=== PATIENT | female | born 1985 | race Caucasian/White ===

== ENCOUNTER 2016-04-04 19:52 | Inpatient (IN) | payer BC ==
[~2016-04-04] VITALS: Ht 165.1 cm; Wt 56.9 kg
[~2016-04-04 19:52] MED LIST: ADVINUNK; BCPILLS PO; UNABLE
[2016-04-04] MEDS ORDERED: PEMB1INJ INJ (20:53)
[2016-04-04] MEDS ORDERED: [UNRECOGNIZED DRUG - REMARK] PO (20:57)
[2016-04-04] MEDS ORDERED: SODIUM CHLORIDE 0.9% 1000ML 1,000 ML IV STA ×2 (21:17)
[2016-04-04 21:33] LABS: BASO % 0.3 %; BASO ABS # 0.02 K/uL (0-0.2); COMPLETE YES; EOS % 1.8 %; HEMATOCRIT 40.9 % (37-47); IG% 0.2 %; LYMPH % 18.6 %; LYMPH ABS # 1.22 K/uL (1.2-3.4); MEAN CELL VOLUME 85.2 fL (80-100); MEAN CORPUSCULAR HEMOGLOBIN 28.8 pg (25-34); MEAN CORPUSCULAR HGB CONC 33.7 g/dl (32-36); MEAN PLATELET VOLUME 11.4 fL (7.4-10.4); MONO % 4.6 %; NEUT % 74.5 %; PLATELET COUNT 289 K/uL (130-400); WHITE BLOOD COUNT 6.56 K/uL (4.8-10.8)
[2016-04-04 21:39] LABS: BUN/CREATININE RATIO 12.9 (10-20); CALCIUM 9.3 mg/dl (8.5-10.1); CREATININE 1.1 mg/dl (0.60-1.20); MAGNESIUM 2.1 mg/dl (1.8-2.4); POTASSIUM 3.8 mmol/L (3.5-5.1)
[2016-04-04 21:44] LABS: INR 0.9 (0.9-1.1); PARTIAL THROMBOPLASTIN RATIO 0.9; PROTHROMBIN TIME (PATIENT) 9.5 SECONDS (9.0-12.0)
[2016-04-04 21:49] LABS: ALB/GLOB RATIO 0.9 (0.9-2); PHOSPHORUS 3.6 mg/dl (2.5-4.9); THYROID STIMULATING HORMONE 7.41 uIu/ml (0.300-4.500)
[2016-04-04] MEDS ORDERED: GADAVIST IV PRN (23:00)
[2016-04-04] MEDS ORDERED: DEXAMETHASONE SOD INJ 10 MG/ML VIAL IV ONE (23:45)
[2016-04-04] MEDS ORDERED: LEVETIRACETAM IV 1,000 MG in DEXTROSE 5% 100ML 100 ML IV ONE (23:45)
[2016-04-05] MEDS ORDERED: LEVAQUIN 750MG / 150ML D5W IV ONE (00:45)
[2016-04-05] MEDS ORDERED: ONDANSETRON INJ 2 MG/ML 2 ML VIAL IV PRN (01:45)
[2016-04-05] MEDS ORDERED: ACETAMINOPHEN 325 MG TAB PO PRN (01:45)
[2016-04-05] MEDS ORDERED: MAGNESIUM HYDROXIDE SUSP 30 ML UDC PO PRN (01:45)
[2016-04-05] MEDS ORDERED: ALUMINUM/MAGNESIUM/SIMETH (MAALOX MAX) 30 ML UDC PO PRN (01:45)
[2016-04-05] MEDS ORDERED: ZOLPIDEM TARTRATE 5 MG TAB PO PRN (01:45)
[2016-04-05] MEDS ORDERED: ALBUTEROL HFA 8 GM INHALER INH PRN (02:00)
--- NOTE | 2016-04-05 02:13 | EMERGENCY ROOM VISIT NOTE ---
History Report prepared by [place]: Roshan Weaver Under the Supervision of: Dr. Shahbaz Padron M.D. First contact with patient: 21:03 Chief Complaint: SEIZURE Stated Complaint: SEIZURE Nursing Triage Summary: Seizure for 10 min in car after leaving the mall. Pt is being treated for skin CA. Recent med change to Keytruda. 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 The patient was with her friend leaving the mall when the seizure occurred. Per her friend, she began to get very disoriented. She was having difficultly getting her words and thoughts out. A couple minutes later, she had a confused look on her face, and her head tossed to the right. Her arm also contracted. This lasted about 2 minutes. After this, the patient was slipping in and out of this state. After about 10 minutes she was back to normal. Per the patient, this has never happened before. The patient has a past medical history of skin cancer that has metastasized into her Lymphatic system and to her liver and bone. She is currently on Keytruda to treat her condition. She just had her third treatment and states that she is doing well. Today, the patient states that she was feeling "weird." She was having "out of body type things." She was also having headaches. Currently, she feels cloudy. She does not have a family history of seizures. Patient denies LOC , fevers, chills, diaphoresis, visual changes, neck pain, chest pain, breathing difficulties, nausea, vomiting, abdominal pain, back pain, melena, hematochezia , urinary symptoms, numbness, weakness, lymphadenopathy, rash, or other complaints. 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 A total of ten systems were reviewed and were otherwise negative. 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 (6) Seizure Surgical Problems: (1) History of radical neck surgery Family History Cancer Social History Smoking Status: Never Smoker Smokeless Tobacco Use: No Drug Use: none Marital Status: single Occupation Status: employed Current/Historical Medications Scheduled Control Pills ( Control Pills), 1 TAB PO DAILY Pembrolizumab (Keytruda), Unknown Dose INJ [id number] [Drink Well], 3 CAP PO DAILY Allergies Coded Allergies: Penicillins (Unverified Allergy, Unknown, unknown, 12/18/09) Physical Exam Vital Signs Date Time Temp Pulse Resp B/P Pulse Ox O2 Delivery O2 Flow Rate FiO2 04/04/16 21:59 70 18 98 04/04/16 21:58 128/82 04/04/16 21:47 74 17 98 04/04/16 21:42 69 16 99 04/04/16 21:32 68 16 100 04/04/16 21:28 134/69 04/04/16 21:22 74 17 100 04/04/16 21:17 73 22 100 04/04/16 21:12 75 20 97 04/04/16 21:07 73 15 98 04/04/16 21:02 74 17 100 04/04/16 20:58 126/83 04/04/16 20:57 68 19 100 04/04/16 20:52 70 17 100 04/04/16 20:47 70 21 100 04/04/16 20:42 76 18 100 04/04/16 20:28 130/87 04/04/16 20:27 71 15 100 04/04/16 20:15 100 Room Air 04/04/16 20:14 67 04/04/16 20:01 100/88 04/04/16 19:55 36.9 155/99 Room Air Physical Exam GENERAL: Awake, alert, well appearing, no distress HENT: Normocephalic, atraumatic. TM's normal. Oropharynx unremarkable. EYES: PERRL. EOMI. Normal conjunctiva. Sclera non-icteric. NECK: Supple. No nuchal rigidity. FROM. No JVD or bruit. RESPIRATORY: CTA CARDIAC: RRR. No murmur. ABDOMEN: Soft, non distended. No tenderness to palpation. No rebound or guarding. No masses. RECTAL: Deferred. MUSCULOSKELETAL: Unremarkable. No edema. No discoloration. Gross motor strength symmetric. NEURO: Cranial nerves 2-12 grossly intact. Normal sensorium. No sensory or motor deficits noted. Speech normal. No pronator drift. SKIN: No rash or jaundice noted. LYMPH: No adenopathy. Medical Decision & Procedures ER Provider Diagnostic Interpretation: Radiology results are stated below per my review and radiologist interpretation: MRI HEAD: Compared to 2015 MRI obtained from [employer] Interactive system: There was no intraparenchymal masses or enhancement to suggest metastatic disease. Metastasis suspected throughout, largest lesion at the right frontoparietal region measuring approximately 3.5 cm. No priors available to document stability. No midline shift or hydrocephalus. Air-fluid levels involving the maxillary sinuses. Background of mucosal thickening. Correlate for acute on chronic sinusitis. Radiologist: Med Casarez M.D. Laboratory Results 04/04/16 20:15 Red Blood Count 4.80, Mean Corpuscular Volume 85.2, Mean Corpuscular Hemoglobin 28.8, Mean Corpuscular Hemoglobin Concent 33.7, Mean Platelet Volume 11.4, Neutrophils (%) (Auto) 74.5, Lymphocytes (%) (Auto) 18.6, Monocytes (%) (Auto) 4.6, Eosinophils (%) (Auto) 1.8, Basophils (%) (Auto) 0.3, Neutrophils # (Auto) 4.89, Lymphocytes # (Auto) 1.22, Monocytes # (Auto) 0.30, Eosinophils # (Auto) 0.12, Basophils # (Auto) 0.02 04/04/16 20:15 Test 04/04/16 20:15 04/04/16 21:03 White Blood Count 6.56 K/uL (4.8-10.8) Red Blood Count 4.80 M/uL (4.2-5.4) Hemoglobin 13.8 g/dL (12.0-16.0) Hematocrit 40.9 % (37-47) Mean Corpuscular Volume 85.2 fL (80-100) Mean Corpuscular Hemoglobin 28.8 pg (25-34) Mean Corpuscular Hemoglobin Concent 33.7 g/dl (32-36) Platelet Count 289 K/uL (130-400) Mean Platelet Volume 11.4 fL (7.4-10.4) Neutrophils (%) (Auto) 74.5 % Lymphocytes (%) (Auto) 18.6 % Monocytes (%) (Auto) 4.6 % Eosinophils (%) (Auto) 1.8 % Basophils (%) (Auto) 0.3 % Neutrophils # (Auto) 4.89 K/uL (1.4-6.5) Lymphocytes # (Auto) 1.22 K/uL (1.2-3.4) Monocytes # (Auto) 0.30 K/uL (0.11-0.59) Eosinophils # (Auto) 0.12 K/uL (0-0.5) Basophils # (Auto) 0.02 K/uL (0-0.2) RDW Standard Deviation 48.1 fL (36.4-46.3) RDW Coefficient of Variation 15.2 % (11.5-14.5) Immature Granulocyte % (Auto) 0.2 % Immature Granulocyte # (Auto) 0.01 K/uL (0.00-0.02) Prothrombin Time 9.5 SECONDS (9.0-12.0) Prothromb Time International Ratio 0.9 (0.9-1.1) Activated Partial Thromboplast Time 23.3 SECONDS (21.0-31.0) Partial Thromboplastin Ratio 0.9 Anion Gap 11.0 mmol/L (3-11) Est Creatinine Clear Calc Drug Dose 67.3 ml/min Estimated GFR () 78.0 Estimated GFR (Non- 67.3 BUN/Creatinine Ratio 12.9 (10-20) Calcium Level 9.3 mg/dl (8.5-10.1) Phosphorus Level 3.6 mg/dl (2.5-4.9) Magnesium Level 2.1 mg/dl (1.8-2.4) Total Bilirubin 0.3 mg/dl (0.2-1) Aspartate Amino Transf (AST/SGOT) 32 U/L (15-37) Alanine Aminotransferase (ALT/SGPT) 26 U/L (12-78) Alkaline Phosphatase 73 U/L (45-117) Total Protein 8.0 gm/dl (6.4-8.2) Albumin 3.7 gm/dl (3.4-5.0) Globulin 4.3 gm/dl (2.5-4.0) Albumin/Globulin Ratio 0.9 (0.9-2) Thyroid Stimulating Hormone (TSH) 7.410 uIu/ml (0.300-4.500) Urine Test NEG (NEG) Laboratory results reviewed by me Medications Administered Medications (Trade) Dose Ordered Sig/Marge Route Start Time Stop Time Status Last Admin Dose Admin Sodium Chloride 1,000 ml @ 999 mls/hr Q1H1M STAT IV 04/04/16 21:17 04/04/16 22:17 DC 04/04/16 22:30 999 MLS/HR Levetiracetam/ Dextrose (Keppra Iv/D5 100ml) 110 ml @ 440 mls/hr ONE ONCE IV 04/04/16 23:45 04/04/16 23:59 DC 04/05/16 00:23 440 MLS/HR Dexamethasone Sodium Phosphate (Decadron Inj) 10 mg NOW ONCE IV 04/04/16 23:45 04/04/16 23:47 DC 04/05/16 00:23 10 MG ECG Indication: other (seizure) Rate (beats per minute): 69 Rhythm: normal sinus Findings: Q waves (Anterior and septal), no acute ischemic change, no ectopy, other (Right axis) ED Course 2102: The patient was evaluated in room C12. A complete history and physical exam was performed. 7: Sodium Chloride 1000 ml @ 125 mls/hr IV, Sodium Chloride 1000 ml @ 999 mls /hr IV 2343: [facility] Hospital[facility]. They believe we should give her Decadron and Keppra. 2345: Decadron Inj 10 mg IV, Levetiracetam 1000 mg/Dextrose 110 ml @ 440 mls/hr IV 0045: Levofloxacin 750 mg IV 0100: Upon reexamination, the patient was resting. I discussed the test results and treatment plan with her. The patient will be evaluated by Dr. Estuardo Elder [facility], for further management. Medical Decision Triage Nursing notes reviewed. The patient's presentation and history were concerning for seizure and history of melanoma. Etiologies such as primary seizure, metastatic tumor, migraine, tumor, headache , sinus thrombosis, temporal arteritis, sinusitis, CVA, ICH, SAH, infection, as well as others were entertained. The patient was evaluated. She had a reported postictal period but that had cleared upon my evaluation. She was doing well. She had no significant headache or meningeal findings. She had no focal neurologic findings. Blood work was obtained. The patient was hydrated. Her diagnostic testing with regards to her laboratory results were unremarkable. The patient underwent MR imaging and this was concerning for metastatic disease. Given that she has diastatic melanoma to the liver and bone, this is the most likely cause. The patient was given Decadron and IV Keppra. I did consult with neurology. The patient was informed of the findings. She also has sinus disease present on MRI and has had symptoms on further questioning. She has a history of sinus problems. The patient was given a dose of IV Levaquin given her penicillin allergy. The patient was evaluated in the emergency department by internal medicine after consultation and admitted for further treatment. The chart was completed utilizing [employer] Speech voice recognition software. Grammatical errors, random word insertions, pronoun errors, and incomplete sentences are an occasional consequence of this system due to software limitations, ambient noise, and hardware issues. Any formal questions or concerns about the content, text, or information contained within the body of this dictation should be directly addressed to the physician for clarification. Consults Time Called: 2340 Consulting Physician: Dr. Madelin Bustos Hospitalist Returned Call: [phone] We discussed the patient's case. They think we should give her Decadron and Keppra. Additional Consults: Time Called: 0055 Consulted Physician: Dr. Estuardo WISE Returned Call: [phone] Additional Comments: He will be evaluating the patient for further management. Impression Primary Impression: New onset seizure Additional Impression: Metastatic melanoma Scribe Attestation The scribe's documentation has been prepared under my direction and personally reviewed by me in its entirety. I confirm that the note above accurately reflects all work, treatment, procedures, and medical decision making performed by me. Departure Information Dispostion Being Evaluated By Hospitalist Referrals Vishnu Wick M.D. (PCP) Patient Instructions My [facility] Problem Qualifiers
--- NOTE | 2016-04-05 02:32 | History and Physical ---
History & Physical Date & Time of Service: Apr 05, 2016 at 02:14 Chief Complaint: Seizure Primary Care Physician: Vihsnu Wick M.D. History of Present Illness Source: patient, family This is a pleasant 30-year-old female, with background history of melanoma, who presents this evening to the emergency department with a new onset seizure. She notes that she was doing well up until earlier this evening. She was driving a car with a friend. They were having a conversation, when suddenly she began having difficulty speaking. She states that she knew which words she wanted to use but was having difficulty expressing them. She notes that she was still able to understand speech. Immediately after she lost consciousness. Her friend noted to her afterwards that her eyes rolled into the back of her head, her arms became flexed, and her head or was flexed to the right. She did not have any shaking or convulsive movements. She denies tongue biting. He denies urinary or bowel incontinence. Her seizure lasted approximately 2-3 minutes, after which she gradually returned to her usual level of consciousness within a period of approximately 10 minutes. She notes that this is her first seizure. Currently she notes that she is symptom free. She does not have any aphasia or dysphasia. She denies blurred or double vision. She denies facial weakness. She denies upper or lower extremity unilateral weakness or altered sensation. She denies balance issues at this time though she has not ambulated since her seizure. Her only other complaint at this time is sinus congestion and discharge. Regarding her diagnosis of melanoma, the diagnosis was made 2 years ago. She follows with Dr. Hernandez from [facility], as her oncologist. Currently she is on a treatment regimen with Keytruda, which she gets on every 3 weeks. Her last treatment was approximately 4 days ago. She has had a total of 3 treatments up until this point. On arrival to the emergency department, an MRI scan was done, which showed a new metastatic lesion to her right frontal-temporal area. Prior to her arrival , she was aware of metastatic disease to her liver, did not know that she had metastasis to her brain until the MRI was done. 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 Status: Chronic Surgical Problems: (1) History of radical neck surgery Status: Chronic [place] teeth Excision of Premarin a melanoma lesion of the scalp Family History Cancer Social History Smoking Status: Never Smoker Smokeless Tobacco Use: No Alcohol Use: occasionally Drug Use: none Marital Status: single Housing status: lives with family Occupational Status: employed Multi-Drug Resistant Organisms History of MDRO: No Allergies Coded Allergies: Penicillins (Unverified Allergy, Unknown, unknown, 12/18/09) Home Medications Scheduled Control Pills ( Control Pills), 1 TAB PO DAILY Pembrolizumab (Keytruda), Unknown Dose INJ [id number] [Drink Well], 3 CAP PO DAILY Review of Systems Constitutional: No chills, No fever, No sweats Eyes: No diplopia, No eye pain, No worsening of vision ENT: No hearing loss, No sore throat, No trouble swallowing Respiratory: No cough, No shortness of breath, No wheezing Cardiovascular: No PND, No chest pain, No edema, No orthopnea, No palpitations Abdomen: No constipation, No diarrhea, No nausea, No pain, No vomiting Musculoskeletal: No joint pain, No muscle pain Neurologic: No balance problems, No numbness/tingling, No vertigo, No weakness Hematologic / Lymphatic: No night sweats, No swollen lymph nodes Integumentary: No new/changing skin lesions, No rash Physical Exam Vital Signs Date Time Temp Pulse Resp B/P Pulse Ox O2 Delivery O2 Flow Rate FiO2 04/04/16 21:59 70 18 98 04/04/16 21:58 128/82 04/04/16 21:47 74 17 98 04/04/16 21:42 69 16 99 04/04/16 21:32 68 16 100 04/04/16 21:28 134/69 04/04/16 21:22 74 17 100 04/04/16 21:17 73 22 100 04/04/16 21:12 75 20 97 04/04/16 21:07 73 15 98 04/04/16 21:02 74 17 100 04/04/16 20:58 126/83 04/04/16 20:57 68 19 100 04/04/16 20:52 70 17 100 04/04/16 20:47 70 21 100 04/04/16 20:42 76 18 100 04/04/16 20:28 130/87 04/04/16 20:27 71 15 100 04/04/16 20:15 100 Room Air 04/04/16 20:14 67 04/04/16 20:01 100/88 04/04/16 19:55 36.9 155/99 Room Air General Appearance: WD/WN, no apparent distress Head: normocephalic, atraumatic Eyes: normal inspection, PERRL, EOMI ENT: hearing grossly normal, pharynx normal Neck: supple, no adenopathy, no JVD Respiratory/Chest: chest non-tender, lungs clear, normal breath sounds, no respiratory distress Cardiovascular: regular rate, rhythm, no edema, no gallop, no murmur Abdomen/GI: normal bowel sounds, non tender, soft Back: normal inspection, no CVA tenderness Extremities/Musculoskeletal: normal inspection, no calf tenderness, no pedal edema Neurologic/Psych: alert, normal mood/affect, oriented x 3 CN I - XII Grossly intact 5/5 Strength in the upper extremities bilaterally with intact sensation No pronator drift; normal finger to nose 5/5 Strength in the extremities bilaterally with intact sensation Skin: normal color, warm/dry, no rash Lymphatic: no adenopathy Diagnostics Laboratory Results Results Past 24 Hours Test 04/04/16 20:15 04/04/16 21:03 Range/Units White Blood Count 6.56 4.8-10.8 K/uL Red Blood Count 4.80 4.2-5.4 M/uL Hemoglobin 13.8 12.0-16.0 g/dL Hematocrit 40.9 37-47 % Mean Corpuscular Volume 85.2 80-100 fL Mean Corpuscular Hemoglobin 28.8 25-34 pg Mean Corpuscular Hemoglobin Concent 33.7 32-36 g/dl Platelet Count 289 130-400 K/uL Mean Platelet Volume 11.4 7.4-10.4 fL Neutrophils (%) (Auto) 74.5 % Lymphocytes (%) (Auto) 18.6 % Monocytes (%) (Auto) 4.6 % Eosinophils (%) (Auto) 1.8 % Basophils (%) (Auto) 0.3 % Neutrophils # (Auto) 4.89 1.4-6.5 K/uL Lymphocytes # (Auto) 1.22 1.2-3.4 K/uL Monocytes # (Auto) 0.30 0.11-0.59 K/uL Eosinophils # (Auto) 0.12 0-0.5 K/uL Basophils # (Auto) 0.02 0-0.2 K/uL RDW Standard Deviation 48.1 36.4-46.3 fL RDW Coefficient of Variation 15.2 11.5-14.5 % Immature Granulocyte % (Auto) 0.2 % Immature Granulocyte # (Auto) 0.01 0.00-0.02 K/uL Prothrombin Time 9.5 9.0-12.0 SECONDS Prothromb Time International Ratio 0.9 0.9-1.1 Activated Partial Thromboplast Time 23.3 21.0-31.0 SECONDS Partial Thromboplastin Ratio 0.9 Sodium Level 140 136-145 mmol/L Potassium Level 3.8 3.5-5.1 mmol/L Chloride Level 102 98-107 mmol/L Carbon Dioxide Level 27 21-32 mmol/L Anion Gap 11.0 3-11 mmol/L Blood Urea Nitrogen 14 7-18 mg/dl Creatinine 1.10 0.60-1.20 mg/dl Est Creatinine Clear Calc Drug Dose 67.3 ml/min Estimated GFR () 78.0 Estimated GFR (Non- 67.3 BUN/Creatinine Ratio 12.9 10-20 Random Glucose 130 70-99 mg/dl Calcium Level 9.3 8.5-10.1 mg/dl Phosphorus Level 3.6 2.5-4.9 mg/dl Magnesium Level 2.1 1.8-2.4 mg/dl Total Bilirubin 0.3 0.2-1 mg/dl Aspartate Amino Transf (AST/SGOT) 32 15-37 U/L Alanine Aminotransferase (ALT/SGPT) 26 12-78 U/L Alkaline Phosphatase 73 45-117 U/L Total Protein 8.0 6.4-8.2 gm/dl Albumin 3.7 3.4-5.0 gm/dl Globulin 4.3 2.5-4.0 gm/dl Albumin/Globulin Ratio 0.9 0.9-2 Thyroid Stimulating Hormone (TSH) 7.410 0.300-4.500 uIu/ml Urine Test NEG NEG Diagnostic Radiology MRI report images in EMR; final report is pending From gross inspection, appearance of space-occupying lesion in the right frontotemporal area EKG Normal sinus rhythm Possible Left atrial enlargement Rightward axis RSR' or QR pattern in V1 suggests right ventricular conduction delay Cannot rule out Anteroseptal infarct , age undetermined Abnormal ECG Impression Assessment and Plan Documented By: Luis Enrique Richbrunoveronica 30-year-old female with background of metastatic melanoma presenting with new onset seizure and new metastatic lesion in the brain. Postictally, she does not have any residual neurological deficits, my examination. Our plan for her is as follows: New-onset seizure - Likely secondary to space-occupying lesion; final MRI report is pending - Decadron 10 mg given in the emergency department to reduce vasogenic edema Continue with Decadron 4 mg by mouth 4 times a day - Keppra started in the emergency department; we will continue on with Keppra, which is to be adjusted/changed per neurology recommendations - We'll place the patient on seizure precautions - Neurology consultation - Oncology consultation placed Acute on chronic sinusitis - Start Levaquin Asthma - Notes good control with only when necessary albuterol use - Albuterol 1 puff every 4 hours when necessary DVT prophylaxis - SCDs - MARY ELLEN hose - Heparin 5000 subcutaneous twice a day CODE STATUS - Level I full code Disposition - Med/Surg Resident Physician Supervision Note: I was present with [Name of resident] during the history and exam. I discussed the case with the resident and agree with the findings and plan as documented in the note. Any exceptions or clarifications are listed here: Pt seen/examined - discussed extensively with pt and family arrives following new onset seizure - likely 2/2 new brain met Pt is receiving immune Tx for metastatic melanoma - had received 2 prior immune agents however recent scans revealed new liver lesions She has had 3 total treatments of a new agent and has not had a brain MRI in 2 years so that the seizure does not necessarily constitute treatment failure O/E AAO x 3 S1.2 RRR CTAB NT/ND No defecits P: Placed on Decadron and Keppra pending eval by HO and neuro Imaging consistent with acute sinus infection as well - will treat with Levaquin Above discussed with pt,family and resident Resuscitation Status FULL RESUSCITATION VTE Prophylaxis VTE Risk Assessment Done? Y/N: Yes Risk Level: Moderate Given or contraindicated: Unfractionated heparin SQ
[2016-04-05 04:01] VITALS: BP 111/68; PULSE 53; TEMP 36.7; O2SAT 100; BMI 21.6
--- NOTE | 2016-04-05 07:39 | DIAGNOSTIC IMAGING REPORT ---
MRI OF THE BRAIN COMBO CLINICAL HISTORY: Seizure. History of melanoma. COMPARISON STUDY: No priors. TECHNIQUE: MRI of the brain was performed utilizing various T1 and T2-weighted sequences in the axial, sagittal, and coronal planes. Contrast-enhanced sequences were acquired following the administration of 6 cc of Gadavist. The examination was performed utilizing the seizure protocol. FINDINGS: Brain parenchyma: There is a large T1 hyperintense lesion identified in the right frontal lobe with surrounding edema. This measures 3.1 x 2.8 x 2.2 cm. Hemosiderin deposition is noted. This appears to contain complex material, likely representing hemorrhage. There is effacement of the adjacent cortical sulci. No midline shift is seen. There is no restricted diffusion typical for acute ischemia. There are numerous (greater than 30) additional T1 hyperintense lesions seen throughout the brain parenchyma. The next largest lesions are present in the anterior left temporal pole measuring 7 mm in the left posterior parietal lobe measuring 10 mm. These likely demonstrate postcontrast enhancement; however, this is difficult to assess given the T1 hyperintensity. No extra-axial fluid collection is seen. The cerebellar tonsils are normal in configuration. Ventricles, sulci, and cisterns: Normal in configuration. Pituitary and sella: Unremarkable. Intracranial vasculature: Normal flow voids are maintained at the skull base. Orbits: The bony orbits are grossly intact. Orbital contents are normal in appearance. Sinuses and mastoids: There is subtotal opacification of the maxillary antra and anterior ethmoid sinuses. Mild mucosal thickening is seen within the frontal sinuses. The mastoid air cells are clear. Calvarium: There is heterogeneity within the clivus such that a bone lesion is not excluded. Cervical cord: Partially visualized cervical spinal cord is normal in morphology and signal intensity. IMPRESSION: 1. Findings consistent with diffuse/multifocal intracranial metastatic disease, with greater than 30 lesions identified. These are T1 hyperintense and likely demonstrate postcontrast enhancement. The signal characteristics are consistent with the reported history of melanoma. 2. The largest lesion measures 3.1 cm an is located in the right frontal lobe. There is significant surrounding edema and internal complexity/hemosiderin suggests hemorrhage. 3. There is no midline shift or evidence of acute ischemia. 4. Paranasal sinus disease as above. Electronically signed by: Wesley Eller M.D. 04/05/2016 7:37 AM Dictated Date/Time: 04/05/2016 7:29 AM
[2016-04-05 07:56] VITALS: BP 120/73; PULSE 52; TEMP 36.2; O2SAT 98
[2016-04-05] MEDS ORDERED: [UNRECOGNIZED DRUG - OTHER] PO SCH (08:00)
[2016-04-05] MEDS ORDERED: DEXAMETHASONE 4 MG TAB PO SCH (08:00)
[2016-04-05] MEDS: LEVETIRACETAM 500 MG TAB PO SCH ×2 (08:44→19:59)
[2016-04-05] MEDS ORDERED: HEPARIN SOD 5000 UNIT/0.5 ML CARP SQ SCH (09:00)
[2016-04-05 09:35] LABS: COMPLETE YES; HEMATOCRIT 38.5 % (37-47); IG% 0.3 %; LYMPH % 8.7 %; LYMPH ABS # 0.68 K/uL (1.2-3.4); MEAN CELL VOLUME 84.6 fL (80-100); MEAN CORPUSCULAR HEMOGLOBIN 28.6 pg (25-34); MEAN CORPUSCULAR HGB CONC 33.8 g/dl (32-36); MEAN PLATELET VOLUME 10.9 fL (7.4-10.4); PLATELET COUNT 252 K/uL (130-400); RED BLOOD COUNT 4.55 M/uL (4.2-5.4); WHITE BLOOD COUNT 7.79 K/uL (4.8-10.8)
[2016-04-05 10:04] LABS: BUN/CREATININE RATIO 11.9 (10-20); CREATININE 1.1 mg/dl (0.60-1.20); POTASSIUM 3.9 mmol/L (3.5-5.1)
--- NOTE | 2016-04-05 10:24 | Family Medicine Progress Note ---
Progress Note Date of Service Apr 05, 2016. Subjective Pt evaluation today including: conversation w/ patient, physical exam, chart review, lab review, review of studies, conversation w/ application security consultant (Dr Childers), review of inpatient medication list Voiding: no voiding problems 30-year-old female with unfortunate history of malignant melanoma with metastatic disease to her liver under Dr Hernandez most recently on Keytruda (last treatment 4 weeks previously). Admitted for new onset seizure with recent headaches. MRI in ER show multiple metastases to her brain. She was given 10 mg dexamethasone in the ER and started on Keppra. Since admission she has felt back to her usual self just a bit jittery. No focal neurology. She has had a cold and sinus pressure for the last 10 days. Takes steroid nasal sprays as required. Discussed goals of care and she currently wishes to undergo all possible treatment. She does not wish to speak to palliative care at present. All Other Systems: Reviewed and Negative Medications Current Inpatient Medications Medications (Trade) Dose Ordered Sig/Marge Route Start Time Stop Time Status Last Admin Dose Admin Gadobutrol (Gadavist) 6 mmol UD PRN IV 04/04/16 23:00 04/08/16 22:59 Acetaminophen (Tylenol Tab) 650 mg Q4H PRN PO 04/05/16 01:45 05/05/16 01:44 Al Hydrox/Mg Hydrox/Simethicone (Maalox Max Susp) 15 ml Q4H PRN PO 04/05/16 01:45 05/05/16 01:44 Magnesium Hydroxide (Milk Of Magnesia Susp) 30 ml Q6H PRN PO 04/05/16 01:45 05/05/16 01:44 Zolpidem Tartrate (Ambien Tab) 5 mg HSZ PRN PO 04/05/16 01:45 05/05/16 01:44 Ondansetron HCl (Zofran Inj) 4 mg Q6H PRN IV 04/05/16 01:45 05/05/16 01:44 Dexamethasone (Decadron Tab) 4 mg Q6H PO 04/05/16 08:00 05/05/16 07:59 04/05/16 08:44 4 MG Albuterol (Ventolin Hfa Inhaler) 1 puffs QID PRN INH 04/05/16 02:00 3/17/17 01:59 Levetiracetam (Keppra Tab) 500 mg BID PO 04/05/16 08:00 05/05/16 08:59 04/05/16 08:44 500 MG Levofloxacin (Levaquin Tab) 750 mg DAILY@11 PO 04/05/16 12:00 04/15/16 11:59 Objective Vital Signs Date Time Temp Pulse Resp B/P Pulse Ox O2 Delivery O2 Flow Rate FiO2 04/05/16 07:56 36.2 52 16 120/73 98 Room Air 04/05/16 04:01 36.7 53 16 111/68 100 Room Air 04/05/16 02:21 64 18 122/74 99 Room Air 04/04/16 21:59 70 18 98 04/04/16 21:58 128/82 04/04/16 21:47 74 17 98 04/04/16 21:42 69 16 99 04/04/16 21:32 68 16 100 04/04/16 21:28 134/69 04/04/16 21:22 74 17 100 04/04/16 21:17 73 22 100 04/04/16 21:12 75 20 97 04/04/16 21:07 73 15 98 04/04/16 21:02 74 17 100 04/04/16 20:58 126/83 04/04/16 20:57 68 19 100 04/04/16 20:52 70 17 100 04/04/16 20:47 70 21 100 04/04/16 20:42 76 18 100 04/04/16 20:28 130/87 04/04/16 20:27 71 15 100 04/04/16 20:15 100 Room Air 04/04/16 20:14 67 04/04/16 20:01 100/88 04/04/16 19:55 36.9 155/99 Room Air Physical Exam General Appearance: WD/WN, no apparent distress Eyes: normal inspection, PERRL, EOMI ENT: pharynx normal Neck: supple Respiratory/Chest: chest non-tender, lungs clear, normal breath sounds, no respiratory distress, no accessory muscle use Cardiovascular: regular rate, rhythm, no murmur Abdomen: normal bowel sounds, non tender, soft Extremities: no pedal edema, no calf tenderness, normal capillary refill Neurologic/Psychiatric: no motor/sensory deficits, alert, normal mood/affect ( appears slightly agitated at rest), oriented x 3 Skin: normal color, warm/dry, no rash Laboratory Results 04/05/16 09:22 Red Blood Count 4.55, Mean Corpuscular Volume 84.6, Mean Corpuscular Hemoglobin 28.6, Mean Corpuscular Hemoglobin Concent 33.8, Mean Platelet Volume 10.9, Neutrophils (%) (Auto) 90.0, Lymphocytes (%) (Auto) 8.7, Monocytes (%) (Auto) 1.0, Eosinophils (%) (Auto) 0.0, Basophils (%) (Auto) 0.0, Neutrophils # (Auto) 7.01, Lymphocytes # (Auto) 0.68, Monocytes # (Auto) 0.08, Eosinophils # (Auto) 0.00, Basophils # (Auto) 0.00 04/05/16 09:22 Test 04/04/16 20:15 04/04/16 21:03 04/05/16 09:22 Prothrombin Time 9.5 SECONDS (9.0-12.0) Prothromb Time International Ratio 0.9 (0.9-1.1) Activated Partial Thromboplast Time 23.3 SECONDS (21.0-31.0) Partial Thromboplastin Ratio 0.9 Phosphorus Level 3.6 mg/dl (2.5-4.9) Magnesium Level 2.1 mg/dl (1.8-2.4) Total Bilirubin 0.3 mg/dl (0.2-1) Aspartate Amino Transf (AST/SGOT) 32 U/L (15-37) Alanine Aminotransferase (ALT/SGPT) 26 U/L (12-78) Alkaline Phosphatase 73 U/L (45-117) Total Protein 8.0 gm/dl (6.4-8.2) Albumin 3.7 gm/dl (3.4-5.0) Globulin 4.3 gm/dl (2.5-4.0) Albumin/Globulin Ratio 0.9 (0.9-2) Thyroid Stimulating Hormone (TSH) 7.410 uIu/ml (0.300-4.500) Urine Test NEG (NEG) White Blood Count 7.79 K/uL (4.8-10.8) Red Blood Count 4.55 M/uL (4.2-5.4) Hemoglobin 13.0 g/dL (12.0-16.0) Hematocrit 38.5 % (37-47) Mean Corpuscular Volume 84.6 fL (80-100) Mean Corpuscular Hemoglobin 28.6 pg (25-34) Mean Corpuscular Hemoglobin Concent 33.8 g/dl (32-36) Platelet Count 252 K/uL (130-400) Mean Platelet Volume 10.9 fL (7.4-10.4) Neutrophils (%) (Auto) 90.0 % Lymphocytes (%) (Auto) 8.7 % Monocytes (%) (Auto) 1.0 % Eosinophils (%) (Auto) 0.0 % Basophils (%) (Auto) 0.0 % Neutrophils # (Auto) 7.01 K/uL (1.4-6.5) Lymphocytes # (Auto) 0.68 K/uL (1.2-3.4) Monocytes # (Auto) 0.08 K/uL (0.11-0.59) Eosinophils # (Auto) 0.00 K/uL (0-0.5) Basophils # (Auto) 0.00 K/uL (0-0.2) RDW Standard Deviation 47.1 fL (36.4-46.3) RDW Coefficient of Variation 15.1 % (11.5-14.5) Immature Granulocyte % (Auto) 0.3 % Immature Granulocyte # (Auto) 0.02 K/uL (0.00-0.02) Anion Gap 12.0 mmol/L (3-11) Est Creatinine Clear Calc Drug Dose 67.3 ml/min Estimated GFR () 78.0 Estimated GFR (Non- 67.3 BUN/Creatinine Ratio 11.9 (10-20) Calcium Level 9.0 mg/dl (8.5-10.1) Assessment and Plan 30-year-old female with background of metastatic melanoma presenting with new onset seizure and metastatic spread to her brain. No residual neurological deficits. Malignant melanoma with metastatic disease to her brain causing new onset seizure - Decadron 10 mg, reduce dexamethasone from QID to BID as discussed with Dr Childers - Continue seizure precautions - Consult neurology - keppra switched to PO, follow up as outpatient - Consult oncology - Dr Hernandez seen and radiation oncology consulted - Consult radiation oncology - seen by Dr Childers, will start whole brain radiotherapy tomorrow - Start memantine 20 mg/day for neuroprotective effect as undergoing WBRT. ( https://www.ncbi.nlm.nih.gov/pmc/articles/ACH7538225/). As discussed with Dr Childers. Acute on chronic sinusitis - switch Levaquin to doxycycline - dexamethasone will also help with this as above Asthma - Notes good control with only when necessary albuterol use - Albuterol 1 puff every 4 hours when necessary DVT prophylaxis - SCDs - MARY ELLEN hose - heparin stopped due to possibility of hemorrhage around brain mets - Encourage ambulation CODE STATUS - Level I full code Disposition - Continue in med/surg for 24 hours seizure free and aim home tomorrow after whole brain radiation Resident Physician Supervision Note: I was present with PGY2 Dr. Tarik Mazariegos during the history and exam. I discussed the case with the resident and agree with the findings and plan as documented in the note. Any exceptions or clarifications are listed here: none. Pt w/o any further seizures. Denies headache, confusion, mental fogginess, weakness in any limb, sensory loss any location. Mother, father, significant other at bedside. VSS, no fever gen - restricted affect no facial droop mouth - tongue bite eleazar on left heart - sinus colt, s1, s2 lungs - CTA b/l neuro - strength 5/5 x 4 exts A/P: 1. stage 4 melanoma with extensive mets to brain plan - whole brain xrt x 10 treatments starting 04/06/16 2. 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 abnormal TSH - free T4 preserved; defer on synthroid for now 4. DVT proph - stop heparin due to concern of slight bleeding around large met in brain Katerine LUU MD Documented By: Tarik Luu Resident Tracking Resident Involvement: Resident Care Provided Care Provided: Adult Hospital Medicine
[2016-04-05] MEDS: LEVOFLOXACIN 750 MG TAB PO SCH (11:43)
--- NOTE | 2016-04-05 14:57 | ONCOLOGY CONSULTATION ---
DATE OF CONSULTATION: 04/05/2016 DATE OF CONSULTATION: 04/05/2016. CONSULTATION WAS REQUESTED BY: Dr. Alba. REASON FOR CONSULTATION: Melanoma, new brain met, seizure. HISTORY OF PRESENT ILLNESS: Ms. Love is a 30-year-old woman who was referred to me in oncology consultation in August 2013 after undergoing surgery for removal of melanoma of the scalp with metastasis to a right neck node. I sent her to [facility] in [place] for an opinion regarding adjuvant therapy. They recommended 1 year of interferon therapy, which the patient refused. I then followed her expectantly. In approximately February 2014 she progressed in her right neck and chest wall. Scanning documented liver and bone metastases as well. She was then placed on a clinical trial receiving Yervoy. Unfortunately, her disease rapidly progressed such that in June 2014 I stopped the Yervoy and took her off clinical study. She was then placed on a second clinical trial receiving Tafinlar and Mekinist. She did well on the 2nd clinical study until approximately January 2016 when again scans showed progression. She was taken off clinical study and placed on Keytruda off study. Her last Keytruda infusion was administered on 03/30/2016 and this was her third infusion. She is now admitted at [facility] after having a seizure. MRI scanning of the brain documented a primary lesion in the right frontal lobe with surrounding edema and possible hemorrhage within the metastases. In addition, greater than 30 additional brain metastases were also noted. She was given Decadron 10 mg IV and started on 4 mg of Decadron q. 6 hours. She was also started on Keppra. She has been seizure free since admission. IMPRESSION: Progressive metastatic melanoma, now with extensive brain involvement. The Decadron and Keppra should be continued. I have consulted radiation therapy and have spoken with Dr. Bozena Childers regarding her treatment. Whole brain radiation will be planned. At this time I am in the process of determining what if any additional systemic therapy should be offered. It is obvious that these brain metastases have been present for some time, but only recently became symptomatic. Therefore, I am not sure that her disease has failed Keytruda. I met with her and discussed her problem. I answered her questions. MTDD
[2016-04-05 15:29] VITALS: BP 115/69; PULSE 55; TEMP 36.5; O2SAT 99
--- NOTE | 2016-04-05 16:13 | Neurology Consultation ---
Neurology Consultation Date of Consultation: Apr 05, 2016. Attending Physician: Tarik Luu MD Primary Care Physician: Vishnu Wick M.D. Reason for Consultation: new onset seizure History of Present Illness Source: patient, family Duque is a 30-year-old female, with PMH melanoma, who presents this evening to the emergency department with a new onset seizure. She notes that she was doing well up until earlier this evening. She was driving a car with a friend. They were having a conversation, when suddenly she began having difficulty speaking. She states that she knew which words she wanted to use but was having difficulty expressing them. She states she was very confused after the event. She did not bite her tongue or have incontinence. Her seizure lasted approximately 2-3 minutes, after which she gradually returned to her usual level of consciousness within a period of approximately 10 minutes. she states she did have some headache and strange feeling several weeks prior to the seizure, she has no history of prior seizure. Her cancer diagnosis was 2 years ago she sees Dr. Hernandez from [facility], as her oncologist. Currently she is being treated with Keytruda, which she gets on every 3 weeks. MRI scan was done, which showed a new metastatic lesion to her right frontal- temporal area. denies, CP, SOB, abdominal pain, one sided weakness, numbness tingling, vision changes, N, V. headache Past Medical/Surgical History Medical Problems: (1) Metastatic melanoma Status: Acute (2) New onset seizure Status: Acute Social History Smokeless Tobacco Use: No Alcohol Use: occasionally Drug Use: none Marital Status: single Occupation Status: employed Allergies Coded Allergies: Penicillins (Unverified Allergy, Unknown, unknown, 12/18/09) Current Inpatient Medications Current Inpatient Medications Medications (Trade) Dose Ordered Sig/Marge Route Start Time Stop Time Status Last Admin Dose Admin Gadobutrol (Gadavist) 6 mmol UD PRN IV 04/04/16 23:00 04/08/16 22:59 Acetaminophen (Tylenol Tab) 650 mg Q4H PRN PO 04/05/16 01:45 05/05/16 01:44 Al Hydrox/Mg Hydrox/Simethicone (Maalox Max Susp) 15 ml Q4H PRN PO 04/05/16 01:45 05/05/16 01:44 Magnesium Hydroxide (Milk Of Magnesia Susp) 30 ml Q6H PRN PO 04/05/16 01:45 05/05/16 01:44 Zolpidem Tartrate (Ambien Tab) 5 mg HSZ PRN PO 04/05/16 01:45 05/05/16 01:44 Ondansetron HCl (Zofran Inj) 4 mg Q6H PRN IV 04/05/16 01:45 05/05/16 01:44 Albuterol (Ventolin Hfa Inhaler) 1 puffs QID PRN INH 04/05/16 02:00 05/05/16 01:59 Levetiracetam (Keppra Tab) 500 mg BID PO 04/05/16 08:00 05/05/16 08:59 04/05/16 08:44 500 MG Levofloxacin (Levaquin Tab) 750 mg DAILY@11 PO 04/05/16 12:00 04/15/16 11:59 04/05/16 11:43 750 MG Dexamethasone (Decadron Tab) 4 mg Q12 PO 04/05/16 20:00 05/05/16 19:59 Physical Exam Vital Signs (Past 24 Hrs): Date Time Temp Pulse Resp B/P Pulse Ox O2 Delivery O2 Flow Rate FiO2 04/05/16 15:29 36.5 55 16 115/69 99 Room Air 04/05/16 10:34 Room Air 04/05/16 07:56 36.2 52 16 120/73 98 Room Air 04/05/16 04:01 36.7 53 16 111/68 100 Room Air 04/05/16 02:21 64 18 122/74 99 Room Air 04/04/16 21:59 70 18 98 04/04/16 21:58 128/82 04/04/16 21:47 74 17 98 04/04/16 21:42 69 16 99 04/04/16 21:32 68 16 100 04/04/16 21:28 134/69 04/04/16 21:22 74 17 100 04/04/16 21:17 73 22 100 04/04/16 21:12 75 20 97 04/04/16 21:07 73 15 98 04/04/16 21:02 74 17 100 04/04/16 20:58 126/83 04/04/16 20:57 68 19 100 04/04/16 20:52 70 17 100 04/04/16 20:47 70 21 100 04/04/16 20:42 76 18 100 04/04/16 20:28 130/87 04/04/16 20:27 71 15 100 04/04/16 20:15 100 Room Air 04/04/16 20:14 67 04/04/16 20:01 100/88 04/04/16 19:55 36.9 155/99 Room Air Physical Exam: Constitutional:appearance nourished, healthy and normal Ears, Nose, Mouth and Throat: mucous membranes moist, no injection and skin normal, eyes normal Cardiovascular: normal S-1 and S-2 and regular rate and rhythm Respiratory: clear to auscultation (CTA) and no rales, rhonchi or wheeze Musculoskeletal: no peripheral edema and good distal pulses Skin: no stigmata of neurocutaneous disease noted and normal and intact Eyes: extraocular muscles intact (EOMI) and pupils equal, round and reactive to light (PERRL) NEUROLOGIC EXAMINATION: Mental status: Alert and interactive Oriented to full date and location Oriented to person Speech fluent with no evidence of aphasia Cranial Nerves smile and eye brow raise symmetric, tongue midline Reflexes: Deep tendon reflexes were symmetrical and graded 2/5. Plantar responses were flexor. Sensory: light touch or cool Coordination: Romberg absent Gait/Stance: Posture normal. Gait normal: with steady with steps, base, turning and tandem gait. Motor: Negative for pronator drift of out stretched arms with eyes closed. Strength: biceps triceps deltoids hand world language teacher, bilaterally 5/5, hip flex plantar flex ext bilaterally 5/5 Laboratory Results Past 24 Hours: 04/05/16 09:22 Red Blood Count 4.55, Mean Corpuscular Volume 84.6, Mean Corpuscular Hemoglobin 28.6, Mean Corpuscular Hemoglobin Concent 33.8, Mean Platelet Volume 10.9, Neutrophils (%) (Auto) 90.0, Lymphocytes (%) (Auto) 8.7, Monocytes (%) (Auto) 1.0, Eosinophils (%) (Auto) 0.0, Basophils (%) (Auto) 0.0, Neutrophils # (Auto) 7.01, Lymphocytes # (Auto) 0.68, Monocytes # (Auto) 0.08, Eosinophils # (Auto) 0.00, Basophils # (Auto) 0.00 04/05/16 09:22 Test 04/04/16 20:15 04/04/16 21:03 04/05/16 09:22 Prothrombin Time 9.5 SECONDS (9.0-12.0) Prothromb Time International Ratio 0.9 (0.9-1.1) Activated Partial Thromboplast Time 23.3 SECONDS (21.0-31.0) Partial Thromboplastin Ratio 0.9 Phosphorus Level 3.6 mg/dl (2.5-4.9) Magnesium Level 2.1 mg/dl (1.8-2.4) Total Bilirubin 0.3 mg/dl (0.2-1) Aspartate Amino Transf (AST/SGOT) 32 U/L (15-37) Alanine Aminotransferase (ALT/SGPT) 26 U/L (12-78) Alkaline Phosphatase 73 U/L (45-117) Total Protein 8.0 gm/dl (6.4-8.2) Albumin 3.7 gm/dl (3.4-5.0) Globulin 4.3 gm/dl (2.5-4.0) Albumin/Globulin Ratio 0.9 (0.9-2) Thyroid Stimulating Hormone (TSH) 7.410 uIu/ml (0.300-4.500) Urine Test NEG (NEG) White Blood Count 7.79 K/uL (4.8-10.8) Red Blood Count 4.55 M/uL (4.2-5.4) Hemoglobin 13.0 g/dL (12.0-16.0) Hematocrit 38.5 % (37-47) Mean Corpuscular Volume 84.6 fL (80-100) Mean Corpuscular Hemoglobin 28.6 pg (25-34) Mean Corpuscular Hemoglobin Concent 33.8 g/dl (32-36) Platelet Count 252 K/uL (130-400) Mean Platelet Volume 10.9 fL (7.4-10.4) Neutrophils (%) (Auto) 90.0 % Lymphocytes (%) (Auto) 8.7 % Monocytes (%) (Auto) 1.0 % Eosinophils (%) (Auto) 0.0 % Basophils (%) (Auto) 0.0 % Neutrophils # (Auto) 7.01 K/uL (1.4-6.5) Lymphocytes # (Auto) 0.68 K/uL (1.2-3.4) Monocytes # (Auto) 0.08 K/uL (0.11-0.59) Eosinophils # (Auto) 0.00 K/uL (0-0.5) Basophils # (Auto) 0.00 K/uL (0-0.2) RDW Standard Deviation 47.1 fL (36.4-46.3) RDW Coefficient of Variation 15.1 % (11.5-14.5) Immature Granulocyte % (Auto) 0.3 % Immature Granulocyte # (Auto) 0.02 K/uL (0.00-0.02) Anion Gap 12.0 mmol/L (3-11) Est Creatinine Clear Calc Drug Dose 67.3 ml/min Estimated GFR () 78.0 Estimated GFR (Non- 67.3 BUN/Creatinine Ratio 11.9 (10-20) Calcium Level 9.0 mg/dl (8.5-10.1) Imaging MRI with and without brain-. Findings consistent with diffuse/multifocal intracranial metastatic disease, with greater than 30 lesions identified. These are T1 hyperintense and likely demonstrate postcontrast enhancement. The signal characteristics are consistent with the reported history of melanoma. . The largest lesion measures 3.1 cm an is located in the right frontal lobe. There is significant surrounding edema and internal complexity/hemosiderin suggests hemorrhage. There is no midline shift or evidence of acute ischemia. Paranasal sinus disease as above. Impression 30 year old female with know metastatic CA now with multiple lesion in the brain largest right frontal Plan 1. oncology for recommendations of treatment 2. IV steroids for edema 3. Keppra 500 mg BID may need increased in future 4. switch to oral Keppra 5. watch for signs of irritation or mood swings on Keppra 6. will see in Neurology office after discharge for further recommendations No Blackburn, PAC schedule in 3-4 weeks I have seen and discussed above patient with Dr No Yusuf, neurology Pt seen and examined. Pt had been having a disconnected feeling lately which may have been a simple partial or partial complex sz. The sz began with mild confusion and head deviation to left and stiffening L arm prior to generalization and post ictal confusion. Exam is unremarkable, no papilledema, field cut, facial asymmetry. Strength, UE, LE symmetric. Symm reflexes, toes downgoing. Impressions multiple cerebral mets from melanoma with secondary sz. Keppra is a good choice as it has few interactions including no interactions with OCP. Pt will monitor for mood related changes, and Out of body sensations. If auras/sz will escalate Keppra dose. Steroid dosing/ protocol for radiation per onc and radiation onc. Pt may not drive for 6 months. EMANUEL Yusuf MD
--- NOTE | 2016-04-05 17:08 | Radiation Oncology Consult ---
Radiation Oncology Consult Date / Reason Apr 05, 2016. [facility]icians Medical Oncologist: Dr. Hernandez Radiation Oncologist: Dr. Bozena Childers Other Providers: Dr. Luu Diagnosis (1) Metastatic melanoma Stage: IV History of Present Illness I am seeing Ms. Love in consultation at the request of Dr. Luu and Dr. Hernandez. The patient was initially seen at bedside and then again in her apartment with her parents. ECOG PS: 0 Ms. Love is a 30-year-old female that was previously diagnosed with metastatic melanoma. The patient was initially diagnosed with a scalpel lesion and right neck node and was treated with surgical resection. She seen in consultation by Dr. Danielito Hernandez for her interferon therapy however the patient refused. Unfortunately, she did develop metastatic disease involving the liver and bones. She has been treated previously with a Yervoy and was most recently started on Keytruda underneath the supervision of Dr. Hernandez. More recently, the patient did have a complex seizure witnessed by a friend and the patient was brought to the emergency room last night. She had an MRI of the brain on which revealed widespread metastatic disease involving both cerebral hemispheres and cerebelli; additionally, there was a dominant lesion involving the right frontal lobe measuring 3.1 cm. The patient was started on Keppra and Decadron. We are now being asked to evaluate the patient for consideration of radiation therapy. Overall, the patient is doing relatively well. She has not had any issues with seizures and she was admitted to the hospital. She says that looking back in hindsight, she did have some headaches and did experience a "out-of-body" sensation. Social History Smoking Status: Never Smoker Hx Tobacco Use In Past Year?: No Do You Dip or Chew Tobacco: No Hx Alcohol Use: Yes (wine & vodka on weekends) Hx Substance Use : No Allergies Coded Allergies: Penicillins (Unverified Allergy, Unknown, unknown, 12/18/09) Home Medications Scheduled Control Pills ( Control Pills), 1 TAB PO DAILY Pembrolizumab (Keytruda), Unknown Dose INJ [id number] [Drink Well], 3 CAP PO DAILY Review of Systems Ear/Hearing: Ear Side: Bilateral Hearing Ability: Normal Hearing Aid: None Edema: Present?: No Location Body Site Modifier: Bilateral Pain Management Patient Preferred Pain Scale: 0 - 10 Initial Pain Intensity: 0.0 Physical Exam Height: 5 (Feet) 5.00 (Inches) 165.1 (Centimeters) 1.6510 (Meters) Weight: 129 (Pounds) 13.6 (Ounces) 58.900 (Kilograms) 47465.000 (Grams) Date Time Temp Pulse Resp B/P Pulse Ox O2 Delivery O2 Flow Rate FiO2 04/05/16 16:32 Room Air 04/05/16 15:29 36.5 55 16 115/69 99 Room Air 04/05/16 10:34 Room Air 04/05/16 07:56 36.2 52 16 120/73 98 Room Air 04/05/16 04:01 36.7 53 16 111/68 100 Room Air 04/05/16 02:21 64 18 122/74 99 Room Air 04/04/16 21:59 70 18 98 04/04/16 21:58 128/82 04/04/16 21:47 74 17 98 04/04/16 21:42 69 16 99 04/04/16 21:32 68 16 100 04/04/16 21:28 134/69 04/04/16 21:22 74 17 100 04/04/16 21:17 73 22 100 04/04/16 21:12 75 20 97 04/04/16 21:07 73 15 98 04/04/16 21:02 74 17 100 04/04/16 20:58 126/83 04/04/16 20:57 68 19 100 04/04/16 20:52 70 17 100 04/04/16 20:47 70 21 100 04/04/16 20:42 76 18 100 04/04/16 20:28 130/87 04/04/16 20:27 71 15 100 04/04/16 20:15 100 Room Air 04/04/16 20:14 67 04/04/16 20:01 100/88 04/04/16 19:55 36.9 155/99 Room Air General Appearance: WD/WN, no apparent distress Head: normocephalic, atraumatic Eyes: normal inspection ENT: normal ENT inspection, hearing grossly normal, TMs normal, pharynx normal Neck: supple, no adenopathy Respiratory/Chest: chest non-tender, lungs clear, normal breath sounds, no respiratory distress Cardiovascular: regular rate, rhythm, no edema, no gallop, no JVD, no murmur Abdomen/GI: normal bowel sounds, non tender, soft, no organomegaly Back: normal inspection, no CVA tenderness 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 History of melanoma. COMPARISON STUDY: No priors. TECHNIQUE: MRI of the brain was performed utilizing various T1 and T2-weighted sequences in the axial, sagittal, and coronal planes. Contrast-enhanced sequences were acquired following the administration of 6 cc of Gadavist. The examination was performed utilizing the seizure protocol. FINDINGS: Brain parenchyma: There is a large T1 hyperintense lesion identified in the right frontal lobe with surrounding edema. This measures 3.1 x 2.8 x 2.2 cm. Hemosiderin deposition is noted. This appears to contain complex material, likely representing hemorrhage. There is effacement of the adjacent cortical sulci. No midline shift is seen. There is no restricted diffusion typical for acute ischemia. There are numerous (greater than 30) additional T1 hyperintense lesions seen throughout the brain parenchyma. The next largest lesions are present in the anterior left temporal pole measuring 7 mm in the left posterior parietal lobe measuring 10 mm. These likely demonstrate postcontrast enhancement; however, this is difficult to assess given the T1 hyperintensity. No extra-axial fluid collection is seen. The cerebellar tonsils are normal in configuration. Ventricles, sulci, and cisterns: Normal in configuration. Pituitary and sella: Unremarkable. Intracranial vasculature: Normal flow voids are maintained at the skull base. Orbits: The bony orbits are grossly intact. Orbital contents are normal in appearance. Sinuses and mastoids: There is subtotal opacification of the maxillary antra and anterior ethmoid sinuses. Mild mucosal thickening is seen within the frontal sinuses. The mastoid air cells are clear. Calvarium: There is heterogeneity within the clivus such that a bone lesion is not excluded. Cervical cord: Partially visualized cervical spinal cord is normal in morphology and signal intensity. IMPRESSION: 1. Findings consistent with diffuse/multifocal intracranial metastatic disease, with greater than 30 lesions identified. These are T1 hyperintense and likely demonstrate postcontrast enhancement. The signal characteristics are consistent with the reported history of melanoma. 2. The largest lesion measures 3.1 cm an is located in the right frontal lobe. There is significant surrounding edema and internal complexity/hemosiderin suggests hemorrhage. 3. There is no midline shift or evidence of acute ischemia. 4. Paranasal sinus disease as above. Assessment & Recommendations Ms. Love is a 30-year-old female with metastatic melanoma with widespread disease involving the brain. She presented with a partial complex seizure and was brought to the emergency room. She has been treated with Decadron and Keppra. Most recently, she has received Keytruda underneath the supervision of Dr. Danielito Hernandez. We have been asked to evaluate for consideration of radiation therapy. Today, I did review the treatment options for a patient with metastatic melanoma to the brain which included: 1) surgery 2) partial brain radiation therapy and 3) whole brain radiation therapy. Unfortunately, based on the widespread extent of disease, I have recommended palliative whole brain radiation therapy. I have recommended 300 cGy in 10 fractions. We did evaluate the patient for consideration of hippocampal-sparing whole brain radiation therapy utilizing IMRT however the patient does have metastatic disease adjacent to the hippocampus which excludes her from that treatment option. We have recommended consideration of using Memantine with whole brain radiation therapy based on the recent literature which shows a potential benefit to protection of neurocognitive performance following whole brain radiation therapy; the patient is agreeable to consideration of memantine and we will ask the primary team to start her treatment tomorrow. She does understand that Memantine is not standard of care at this point. After the completion of whole brain radiation therapy, we will recommend repeating an MRI of the brain in 2 months and determine whether or not any smaller lesions need to be consolidated with further radiation therapy. We explained the indications, alternatives, benefits, risks and side effects of external beam radiation therapy to the brain. We explain the most common side effects including but not limited to skin erythema, skin break down, hair loss, radiation necrosis, fatigue, short-term memory loss, decreased neurocognitive performance, cerebral edema, hearing loss, damage to cochlea structures, seizures, loss of sensory and or motor function. We explained the treatment planning process and what to expect before during and after treatment. The patient understands and would be willing to consent to treatment. The patient and family had multiple questions which were answered to their full satisfaction. Thank you for allowing us to participate in the care of this patient. This chart was completed in part utilizing [employer] Speech Voice Recognition software. Attempts were made to minimize the grammatical errors, random word insertions, pronoun errors and incomplete sentences. Any formal questions or concerns about the content, text or information contained within the body of this dictation should be directly addressed to the provider for clarification. Bozena Childers MD Department of Radiation Oncology [facility] Total Time In Consultation I spent 30 minutes examining and counseling the patient. I spent 15 minutes completing this note. Copy To Tarik Luu MD; Danielito Hernandez M.D.
[2016-04-05] MEDS ORDERED: MEMANTINE 10 MG TAB PO ONE (17:20)
[2016-04-05] MEDS: DOXYCYCLINE HYCLATE 100 MG CAP PO SCH (19:23)
[2016-04-05] MEDS: DEXAMETHASONE 4 MG TAB PO SCH (19:58)
[2016-04-05 20:41] VITALS: BP 111/68; PULSE 60; TEMP 36.4; O2SAT 98
[2016-04-05] MEDS ORDERED: LORAZEPAM 2 MG/ML 1 ML VIAL IV PRN ×2 (20:45→21:45)
[2016-04-05] MEDS ORDERED: LORAZEPAM INJ 1 MG in SYRINGE 0.5 ML IV PRN (21:00)
[2016-04-06 00:09] VITALS: BP 117/68; PULSE 57; TEMP 36.7; O2SAT 100
[2016-04-06 03:53] VITALS: BP 119/73; PULSE 54; TEMP 36.6; O2SAT 99
[2016-04-06 06:40] VITALS: Ht 165.1 cm; Wt 56.9 kg
[2016-04-06 07:18] VITALS: BP 102/61; PULSE 47; TEMP 36.5; O2SAT 100
[2016-04-06] MEDS ORDERED: MEMANTINE 10 MG TAB PO SCH ×2 (08:00→09:00)
[2016-04-06] MEDS: DOXYCYCLINE HYCLATE 100 MG CAP PO SCH (08:22)
[2016-04-06] MEDS: DEXAMETHASONE 4 MG TAB PO SCH (08:22)
[2016-04-06] MEDS: LEVETIRACETAM 500 MG TAB PO SCH (08:23)
[2016-04-06] MEDS: LEVOFLOXACIN 750 MG TAB PO SCH (08:23)
[2016-04-06 11:23] VITALS: BP 109/66; PULSE 65; TEMP 36.9; O2SAT 98
[2016-04-06] MEDS ORDERED: NMN10 PO (12:00)
[2016-04-06] MEDS ORDERED: LEVE500T PO ×2 (12:00→15:58)
[2016-04-06] MEDS ORDERED: DXY100 PO ×2 (12:00→15:58)
[2016-04-06] MEDS ORDERED: DXM4 PO ×2 (12:00→15:58)
--- NOTE | 2016-04-06 12:09 | Discharge Instructions ---
Discharge Instructions Admission Reason for Admission: Malig. Melanoma Metas. 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 (Tarik Mazariegos MD) Instructions / Follow-Up Instructions / Follow-Up You were admitted to [facility] after a seizure. MRI of the brain should multiple brain metastases. You have been started on Keppra to lower your seizure threshold and dexamethasone to reduce edema around the metastatic disease. You were evaluated by your oncologist and radiation oncologist who recommended whole brain radiation therapy and the initial dose was given on day of discharge. You were started on memantine for neuroprotection while undergoing whole brain radiation, further doses of this will be provided by your radiation oncologist. You were also evaluated by neurology who will follow you up in 3-4 weeks (you will be contacted with an appointment). (Tarik Mazariegos MD) Current Hospital Diet Patient's current hospital diet: Regular Diet (Tarik Mazariegos MD) Discharge Diet Recommended Diet: Regular Diet (Tarik Mazariegos MD) Pending Studies Studies pending at discharge: no (Tarik Mazariegos MD) Medical Emergencies . Who to Call and When: Medical Emergencies: If at any time you feel your situation is an emergency, please call 911 immediately. . (Tarik Mazariegos MD) Non-Emergent Contact Non-Emergency issues call your: Oncologist (Dr Hernandez) . (Tarik Mazariegos MD) . "Provider Documentation" section prepared by Tarik Mazariegos. (Tarik Mazariegos MD) Attending Attestation: Pt seen & examined with PGY2 Dr. Tarik Mazariegos on the day of discharge and I agree with his discharge instructions as outlined. Tarik Luu MD (Tarik Luu MD) VTE Core Measure Inpt VTE Proph given/why not?: Contraindicated (Tarik Mazariegos MD)
[2016-04-06 12:31] VITALS: BP 109/66; PULSE 65; TEMP 36.9; O2SAT 98
[2016-04-06] MEDS ORDERED: OMEP40CA41 PO (15:58)
[2016-04-06] MEDS ORDERED: NURSING VERBAL MED ORDER ONE (16:45)
--- NOTE | 2016-04-06 18:26 | Discharge Summary ---
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 Findings consistent with diffuse/multifocal intracranial metastatic disease, with greater than 30 lesions identified. These are T1 hyperintense and likely demonstrate postcontrast enhancement. The signal characteristics are consistent with the reported history of melanoma. 2. The largest lesion measures 3.1 cm an is located in the right frontal lobe. There is significant surrounding edema and internal complexity/hemosiderin suggests hemorrhage. 3. There is no midline shift or evidence of acute ischemia. 4. Paranasal sinus disease as above. (Tarik Luu MD) Medication Reconciliation New Medications: Omeprazole (Prilosec) 40 Mg Cap 40 MG PO QAM, #30 CAP 2 Refills Dexamethasone (Dexamethasone) 4 Mg Tab 4 MG PO Q12 for 30 Days, #60 TAB 1 Refill Doxycycline Hyclate (Doxycycline Hyclate) 100 Mg Cap 100 MG PO BID for 8 Days, #16 CAP 0 Refills Levetiractam (Levetiracetam) 500 Mg Tab 500 MG PO BID for 30 Days, #60 TAB 1 Refill Memantine (Namenda) 10 Mg Tab 5 MG PO QAM for 6 Days, TAB Continued Medications: Control Pills ( Control Pills) Tab 1 TAB PO DAILY Pembrolizumab (Keytruda) 100 Mg/4 Ml Inj Unknown Dose INJ [id number] [Drink Well] () 3 CAP PO DAILY Discharge Exam No acute issues overnight. No further seizures, headache or focal neurology. Sinus pressure improving. 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 She was symptom free since time of admission. MRI showed diffuse/multifocal intracranial metastatic disease with greater than 30 lesions identified. The largest lesion measured 3.1 cm an is located in the right frontal lobe with surrounding edema and findings suggestive of internal hemorrhage. She was started on Keppra for seizure prophylaxis. She was also started on dexamethasone to reduce edema. Whole brain radiation therapy was recommended by Dr Childers and she received the first of 10 daily treatments on the day of discharge 04/06/16. She was also started on memantine for neuroprotective effect at 5mg daily for the first week. Future dosing to be prescribed by radiation oncology. She was also started on doxycycline for URI Sx > 7 days with sinus pressure and fluid on the MRI scan. She will follow up with Dr Hernandez regarding other treatments including Keytruda. She will follow up with [facility] in 3-4 weeks. Total Time Spent: Less than 30 minutes This includes examination of the patient, discharge planning, medication reconciliation, and communication with other providers. (Tarik Mazariegos MD) Resident Physician Supervision Note: I was present with PGY2 Dr. Tarik Mazariegos during the discharge history and exam. I discussed the case with the resident and agree with the findings and plan as documented in this discharge summary. Any exceptions or clarifications are listed here: none. Unfortunate 30yo female with known stage 4 melanoma who presented with a seizure. MRI brain was consistent with extensive metastatic disease from her melanoma. She was seen by neurology who recommended keppra BID for seizure prevention. Oncology and radiation oncology were consulted and whole brain radiation was started; she received her first of 10 treatments while hospitalized. She had no further seizures while hospitalized. She will discharge to home on decadron BID for brain swelling related to the mets and keppra BID. PPI will be employed for GI prophylaxis due to the steroids. She will return to [facility] the day after discharge for her 2nd whole brain xrt treatment. discharge exam: gen - NAD heart - RR, colt, s1, s2 lungs - CTA b/l neuro - strength 5/5 x 4 exts psych - depressed affect Documented By: Tarik Luu MD Total Time Spent: Greater than 30 minutes (Tarik Luu MD) Discharge Instructions Please refer to the electronic Patient Visit Report (Discharge Instructions) for additional information. (Tarik Mazariegos MD) Follow-Up Follow up with whole brain radiation therapy as above Follow up with Dr Hernandez (to be arranged) Follow up with [facility] in 3-4 weeks (to be arranged) (Tarik Mazariegos MD) Additional Copies To No Blackburn PA-C; Veeral. Childers MD; No Yusuf M.D.; Vishnu Wick M.D.; Danielito Hernandez M.D. Resident Tracking Resident Involvement: Resident Care Provided Care Provided: [facility] (Tarik Mazariegos MD)
[2016-04-17] MEDS ORDERED: NMN5 PO (18:14)
[2016-06-01] MEDS ORDERED: NMN10 PO (11:15)
[2016-11-21] MEDS ORDERED: IMD/2 PO (16:02)
[2016-11-21] MEDS ORDERED: MAGIC1 PO (16:02)
[2016-11-21] MEDS ORDERED: LIDOCAINE TOP (16:02)
[2016-11-21] MEDS ORDERED: ONDA8TAB6 PO (16:02)
[2016-11-21] MEDS ORDERED: ALBUAER INH (16:02)
[2016-11-21] MEDS ORDERED: MEGE40TA13 PO (16:02)
[2016-11-21] MEDS ORDERED: [UNRECOGNIZED DRUG - CODE] PO (16:02)
[2016-11-21] MEDS ORDERED: CLOT10TR2 MT (16:02)
[2016-11-21] MEDS ORDERED: [UNRECOGNIZED DRUG - CODE] PO (16:02)
[2016-11-21] MEDS ORDERED: DIPHENHYDRAMINE TOP (16:02)
[2016-11-21] MEDS ORDERED: DICY10CA55 PO (16:02)
[2016-11-21] MEDS ORDERED: OXYC1TAB3 PO (16:02)
[2016-11-21] MEDS ORDERED: PRED20TA PO (16:02)
[2016-11-21] MEDS ORDERED: FLUC100T4 PO (16:02)
[2016-11-21] MEDS ORDERED: TRIA37.5 PO (16:02)
[2016-11-21] MEDS ORDERED: DIPH1CRE TOP (16:02)
[2016-11-21] MEDS ORDERED: LEVE500T13 PO (16:02)
[2016-11-21] MEDS ORDERED: SYMIN/8045 INH (16:02)
[2016-11-21] MEDS ORDERED: MRN/25 PO (16:02)
== END 2016-04-06 17:25 | disposition home or self-care (01) | DRG 54 ==
LOC: ENRESERVDT → ENRESERVTM → EDBD 19:52 → C.EDC 19:53 → C.4E 04-05 01:47
PROVIDERS: ADMIT Student in an Organized Health Care Education/Training Program; ATTEND Internal Medicine
DX: C79.31 Secondary malignant neoplasm of brain (principal); G93.6 Cerebral edema; G40.89 Other seizures; C79.51 Secondary malignant neoplasm of bone; C78.7 Secondary malignant neoplasm of liver and intrahepatic bile duct; Z85.820 Personal history of malignant melanoma of skin; J32.9 Chronic sinusitis, unspecified; J01.90 Acute sinusitis, unspecified

== ENCOUNTER → 2016-06-01 | Outpatient (CLI) | payer BC ==
[~2016-06-01] MED LIST changes: -ADVINUNK; +ALBUAER INH; +CLOT10TR2 MT; +DICY10CA55 PO; +DIPH1CRE TOP; +DIPHENHYDRAMINE TOP; +DXM4 PO; +FLUC100T4 PO; +IMD/2 PO; +LEVE500T PO; +LEVE500T13 PO; +LEVE750T PO; +LIDOCAINE TOP; +MAGIC1 MT; +MEGE40SU PO; +MEGE40TA13 PO; +MGCL40 PO; +MRN/25 PO; +NMN10 PO; +NMN5 PO; +OMEP40CA41 PO; +ONDA8TAB6 PO; +OXYC1TAB3 PO; +PEMB1INJ INJ; +PRED20TA PO; +SYMIN/8045 INH; +TRIA37.5 PO; -UNABLE; +[UNRECOGNIZED DRUG - CODE] PO; +[UNRECOGNIZED DRUG - CODE] PO; +[UNRECOGNIZED DRUG - OTHER] IV
[2016-06-01 11:06] VITALS: BP 131/78; PULSE 51; TEMP 36.6; O2SAT 100
--- NOTE | 2016-06-01 13:29 | Radiation Oncology Follow-Up ---
Radiation Oncology Follow-Up Date of Visit Jun 01, 2016. (Akanksha Pathak PA-C) Reason For Visit One-month follow-up (Akanksha Pathak PA-C) Radiation Completion Date finished 04-26-2016 (Akanksha Pathak PA-C) Diagnosis (1) Malignant melanoma Status: Acute Permanent Comment: Scalp lesion and right neck node Status post excison and neck dissection Declined Interferon Liver and bone metastasis stated Yervoy Brain metastasis Status post whole brain radiation completed 04/26/2016 received 3,750 cGy Last Edited By: Akanksha Pathak on May 08, 2016 15:22 (Akanksha Pathak PA-C) History of Present Illness Ms. Love is a 30-year-old female that was previously diagnosed with metastatic melanoma. The patient was initially diagnosed with a scalpel lesion and right neck node and was treated with surgical resection. She seen in consultation by Dr. Danielito Hernandez for her interferon therapy however the patient refused. Unfortunately, she did develop metastatic disease involving the liver and bones. She has been treated previously with a Yervoy and was most recently started on Keytruda underneath the supervision of Dr. Hernandez. More recently, the patient did have a complex seizure witnessed by a friend and the patient was brought to the emergency room last night. She had an MRI of the brain on 04/04/2016 which revealed widespread metastatic disease involving both cerebral hemispheres and cerebelli ; additionally, there was a dominant lesion involving the right frontal lobe measuring 3.1 cm. The patient was started on Keppra and Decadron. We are now being asked to evaluate the patient for consideration of radiation therapy. Whole brain radiation was given from April 06 to 04/26/2016. She received 3750 cGy. She was also started on Namenda To help prevent cognitive changes post therapy. (Akanksha Pathak PA-C) Interim History She's been doing well over the past month. She denies any problems with headaches. She is on chemotherapy through Dr. Hernandez's office. She is receiving your Yervoy and Opdivo. She is tolerating this well. She denies side effects. At discharge from the hospital she was on dexamethasone. She's been taking 4 mg twice a day. She is also prescribed Protonix 40 mg daily. She wanted to review how long to to continue these medications. She is seeing a neurologist on Sunday. She continues on the Namenda. With the help of patient navigation she was able to get a 90 day supply. This is plan to continue for a total of 24 weeks. She did have some irritation of the right ear following treatment she saw her primary care physician and was prescribed antibiotic eardrops. This has now resolved. She denied any difficulty with the skin of the scalp. (Akanksha Pathak PA-C) Allergies Coded Allergies: Penicillins (Unverified Allergy, Unknown, unknown, 12/18/09) Home Medications Scheduled Control Pills ( Control Pills), 1 TAB PO DAILY Dexamethasone (Dexamethasone), 4 MG PO Q12 Levetiractam (Levetiracetam), 500 MG PO BID Memantine (Namenda), 10 MG PO BID Omeprazole (Prilosec), 40 MG PO QAM Review of Systems Gastrointestinal: Symptoms: WNL Oral: Symptoms: No Problems Respiratory: Symptoms: Dry Cough Other Respiratory: "and scratchy throat at times " Urinary: Symptoms: Nocturia Comments: nocturia times 2 (Akanksha Pathak PA-C) Physical Exam Vital Signs Date Time Temp Pulse Resp B/P Pulse Ox O2 Delivery O2 Flow Rate FiO2 06/01/16 11:06 36.6 51 16 131/78 100 Pain: Side: Bilateral Patient Pain Scale: 0 - 10 Initial Pain Intensity: 0.0 Fatigue: None General Appearance: no apparent distress Eyes: normal inspection, EOMI ENT: normal ENT inspection, hearing grossly normal, TMs normal, + pertinent finding (mouth revealed thrush) Respiratory/Chest: lungs clear, no respiratory distress, no accessory muscle use Cardiovascular: regular rate, rhythm, no gallop, no murmur Extremities: no pedal edema Neurologic/Psychiatric: nickel plater II-XII nml as tested, no motor/sensory deficits, alert, normal mood/affect Skin: warm/dry (Akanksha Pathak PA-C) Laboratory Studies Test 04/04/16 20:15 04/04/16 21:03 04/05/16 09:22 White Blood Count 6.56 K/uL (4.8-10.8) 7.79 K/uL (4.8-10.8) Red Blood Count 4.80 M/uL (4.2-5.4) 4.55 M/uL (4.2-5.4) Hemoglobin 13.8 g/dL (12.0-16.0) 13.0 g/dL (12.0-16.0) Hematocrit 40.9 % (37-47) 38.5 % (37-47) Mean Corpuscular Volume 85.2 fL (80-100) 84.6 fL (80-100) Mean Corpuscular Hemoglobin 28.8 pg (25-34) 28.6 pg (25-34) Mean Corpuscular Hemoglobin Concent 33.7 g/dl (32-36) 33.8 g/dl (32-36) Platelet Count 289 K/uL (130-400) 252 K/uL (130-400) Mean Platelet Volume 11.4 fL (7.4-10.4) 10.9 fL (7.4-10.4) Neutrophils (%) (Auto) 74.5 % 90.0 % Lymphocytes (%) (Auto) 18.6 % 8.7 % Monocytes (%) (Auto) 4.6 % 1.0 % Eosinophils (%) (Auto) 1.8 % 0.0 % Basophils (%) (Auto) 0.3 % 0.0 % Neutrophils # (Auto) 4.89 K/uL (1.4-6.5) 7.01 K/uL (1.4-6.5) Lymphocytes # (Auto) 1.22 K/uL (1.2-3.4) 0.68 K/uL (1.2-3.4) Monocytes # (Auto) 0.30 K/uL (0.11-0.59) 0.08 K/uL (0.11-0.59) Eosinophils # (Auto) 0.12 K/uL (0-0.5) 0.00 K/uL (0-0.5) Basophils # (Auto) 0.02 K/uL (0-0.2) 0.00 K/uL (0-0.2) RDW Standard Deviation 48.1 fL (36.4-46.3) 47.1 fL (36.4-46.3) RDW Coefficient of Variation 15.2 % (11.5-14.5) 15.1 % (11.5-14.5) Immature Granulocyte % (Auto) 0.2 % 0.3 % Immature Granulocyte # (Auto) 0.01 K/uL (0.00-0.02) 0.02 K/uL (0.00-0.02) Prothrombin Time 9.5 SECONDS (9.0-12.0) Prothrombin Time INR 0.9 (0.9-1.1) PTT 23.3 SECONDS (21.0-31.0) Partial Thromboplastin Ratio 0.9 Sodium Level 140 mmol/L (136-145) 140 mmol/L (136-145) Potassium Level 3.8 mmol/L (3.5-5.1) 3.9 mmol/L (3.5-5.1) Chloride Level 102 mmol/L (98-107) 105 mmol/L (98-107) Carbon Dioxide Level 27 mmol/L (21-32) 23 mmol/L (21-32) Anion Gap 11.0 mmol/L (3-11) 12.0 mmol/L (3-11) Blood Urea Nitrogen 14 mg/dl (7-18) 13 mg/dl (7-18) Creatinine 1.10 mg/dl (0.60-1.20) 1.10 mg/dl (0.60-1.20) Est Creatinine Clear Calc Drug Dose 67.3 ml/min 67.3 ml/min Estimated GFR () 78.0 78.0 Estimated GFR (Non- 67.3 67.3 BUN/Creatinine Ratio 12.9 (10-20) 11.9 (10-20) Random Glucose 130 mg/dl (70-99) 183 mg/dl (70-99) Calcium Level 9.3 mg/dl (8.5-10.1) 9.0 mg/dl (8.5-10.1) Phosphorus Level 3.6 mg/dl (2.5-4.9) Magnesium Level 2.1 mg/dl (1.8-2.4) Total Bilirubin 0.3 mg/dl (0.2-1) Aspartate Amino Transferase (AST) 32 U/L (15-37) Alanine Aminotransferase (ALT) 26 U/L (12-78) Alkaline Phosphatase 73 U/L (45-117) Total Protein 8.0 gm/dl (6.4-8.2) Albumin 3.7 gm/dl (3.4-5.0) Globulin 4.3 gm/dl (2.5-4.0) Albumin/Globulin Ratio 0.9 (0.9-2) Thyroid Stimulating Hormone (TSH) 7.410 uIu/ml (0.300-4.500) Urine Test NEG (NEG) Free Thyroxine 0.92 ng/dl (0.80-1.60) (Akanksha Pathak PA-C) Assessment & Plan Plan: The patient is also seen and examined by Dr. Childers. Prescription was given for thrush. She was prescribed Mycelex troches. She'll dissolve 1 on her tongue 5 times a day. #35 are given and 1 refill. She was given a tapering dose of Decadron. She'll take 4 mg pills she'll continue this twice daily for 3 days she'll then decreased to 2 mg twice daily for 3 days. This will then decrease to 2 mg daily for 3 days and then stop. She will continue Prilosec 40 mg 1 daily. Prescription was given for 30 more pills to continue to help protect from gastritis due to the steroid treatment. She'll continue follow-up with Dr. Hernandez and continue on her current regimen of chemotherapy. Follow-up MRI was discussed. We'll plan to obtain an MRI in 2 weeks. This will be a combo evaluation. This will be done with thin slices following the SRS protocol. This will be reviewed by Dr. Manuel Reese. She'll be notified as to the results of her MRI. The results of the MRI will dictate her next follow-up visit. When she is given her results we will determine when her follow-up visit will be scheduled. (Akanksha Pathak PA-C) I agree with note created by Akanksha Pathak PA-C. I reviewed the patient's chart and information with her. I have examined and evaluated the patient. I reviewed relevant clinical information and answered the patient's and/or family' s questions. (Veeral. Childers MD) Total Time In Follow-Up I spent 20 minutes speaking to the patient performing examination. I spent 15 minutes reviewing information completing this note. (Akanksha Pathak PA-C) I spent 15 minutes examining and counseling the patient. (Veeral. Childers MD) Copy To Vishnu Wick M.D.; Tarik Luu MD; Danielito Hernandez M.D.
== END | disposition home or self-care (01) ==
LOC: C.ONC 10:59
PROVIDERS: ATTEND Physician Assistant Medical
DX: Z08 Encounter for follow-up examination after completed treatment for malignant neoplasm (principal); Z92.3 Personal history of irradiation; Z85.820 Personal history of malignant melanoma of skin

== ENCOUNTER 2016-06-14 12:40 | Emergency (ER) | payer BC ==
[~2016-06-14] VITALS: Ht 165.1 cm; Wt 51.5 kg
[~2016-06-14 12:40] MED LIST changes: -ALBUAER INH; -CLOT10TR2 MT; -DICY10CA55 PO; -DIPH1CRE TOP; -DIPHENHYDRAMINE TOP; -FLUC100T4 PO; -IMD/2 PO; -LEVE500T13 PO; -LEVE750T PO; -LIDOCAINE TOP; -MAGIC1 MT; -MEGE40SU PO; -MEGE40TA13 PO; -MGCL40 PO; -MRN/25 PO; -NMN5 PO; -ONDA8TAB6 PO; -OXYC1TAB3 PO; -PEMB1INJ INJ; -PRED20TA PO; -SYMIN/8045 INH; -TRIA37.5 PO; -[UNRECOGNIZED DRUG - CODE] PO; -[UNRECOGNIZED DRUG - CODE] PO; -[UNRECOGNIZED DRUG - OTHER] IV
[2016-06-14 12:44] VITALS: TEMP 37.4
[2016-06-14] MEDS ORDERED: SODIUM CHLORIDE 0.9% 1000ML 1,000 ML IV STA (13:24)
[2016-06-14] MEDS ORDERED: [UNRECOGNIZED DRUG - OTHER] IV (13:27)
[2016-06-14] MEDS ORDERED: MoRPHine SULFATE 4 MG/ML 1 ML CARP\\VIAL IV STA ×2 (13:30→15:29)
[2016-06-14 13:36] VITALS: O2SAT 99; Ht 165.1 cm; Wt 51.5 kg
--- NOTE | 2016-06-14 13:44 | EMERGENCY ROOM VISIT NOTE ---
History First contact with patient: 13:06 Chief Complaint: HEADACHE Stated Complaint: THROBBING HEAD, CHILLS History of Present Illness The patient is a 30 year old female who presents to the Emergency Room with complaints of severe headache for the past 4 days. She has past medical history of melanoma with metastatic lesions to her liver, bones, lymph nodes, and recently diagnosed with metastatic lesions in her brain. She is currently receiving chemotherapy every 3 weeks, last session was 06/01/2016. She completed a 16 mile trail run on Sunday, and states she has been feeling poorly ever since then. She also notes that she was recently weaned off of her steroid, her last dose was 3 days ago. She describes her headache as generalized, throbbing, 7 out of 10. She also notes associated nausea, chills and generalized weakness. She is unsure of fevers as she has not checked her temperature. She denies neck pain or stiffness, back pain, chest pain, shortness of breath, abdominal pain, vomiting, diarrhea, urinary symptoms. Review of Systems GENERAL: + Chills, malaise, generalized weakness. HEENT: Denies dizziness, visual problems, hearing loss, tinnitus. Denies difficulty swallowing or oral lesions. PULMONARY: Denies cough, shortness of breath, sputum production or hemoptysis. CARDIOVASCULAR: Denies chest pain, palpitations, dyspnea on exertion, orthopnea or peripheral edema. GASTROINTESTINAL: Denies diarrhea, constipation, + nausea, vomiting, or abdominal pain. GENITOURINARY: Denies dysuria, frequency, urgency or nocturia. + decreased urine output. NEUROLOGIC: +Headache, hx of brain mets and seizures. MUSCULOSKELETAL: Denies history of joint tenderness/swelling. SKIN: Denies rashes or lesions. PSYCHIATRIC: Denies history of depression or mental illness. HEMATOLOGIC: Denies abnormal bleeding or bruising, enlarged or tender lymph nodes. 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 (6) Seizure Surgical Problems: (1) History of radical neck surgery Family History Cancer Social History Smoking Status: Never Smoker Drug Use: none Marital Status: single Occupation Status: employed Current/Historical Medications Scheduled Control Pills ( Control Pills), 1 TAB PO DAILY Levetiractam (Levetiracetam), 500 MG PO BID Memantine (Namenda), 10 MG PO BID Omeprazole (Prilosec), 40 MG PO QAM [Optivo], 1 DOSE IV Q3WK Allergies Coded Allergies: Penicillins (Unverified Allergy, Unknown, unknown, 06/14/16) Physical Exam Vital Signs Date Time Temp Pulse Resp B/P Pulse Ox O2 Delivery O2 Flow Rate FiO2 06/14/16 15:23 74 18 114/68 100 Room Air 06/14/16 14:33 73 20 120/69 100 06/14/16 14:13 76 06/14/16 13:36 99 Room Air 06/14/16 12:44 37.4 106 18 105/69 99 Room Air Physical Exam CONSTITUTIONAL: No acute distress. Dehydrated with dry mucous membranes. Alert and oriented X 4 with normal affect. HEENT: Normocephalic, atraumatic. Pupils equal, round and reactive to light, EOMI. TMs normal. NECK: Supple, full active range of motion without discomfort. RESPIRATORY: Clear to auscultation bilaterally with no wheezing, crackles, rhonchi or stridor. Equal expansion bilaterally. CARDIOVASCULAR: Tachycardia. Regular rhythm with no murmurs, rubs or gallops. Normal peripheral perfusion. No edema. GASTROINTESTINAL: Soft, nontender, nondistended. Bowel sounds present in all quadrants. MUSCULOSKELETAL: Full range of motion of all joints without discomfort. INTEGUMENTARY: No rash or other significant dermatologic conditions noted. NEUROLOGIC: Alert and oriented 4. Slightly weaker in left arm and leg when compared to the right side, which is normal 5/5 strength. Normal sensation, normal reflexes, normal balance and gait. Negative facial droop, negative pronator drift. Cranial nerves II-XII grossly intact. Medical Decision & Procedures ER Provider Diagnostic Interpretation: IMPRESSION: 1. There is evidence of multifocal hemorrhagic intracranial metastatic disease. Although comparison across modalities is difficult, the distribution of lesions is similar to the 04/04/2016 MRI examination. 2. There is increasing edema identified around the largest hemorrhagic lesions as detailed above. 3. No midline shift is CT. There is no evidence of acute territorial ischemia by CT criteria. Laboratory Results 06/14/16 13:30 Red Blood Count 4.68, Mean Corpuscular Volume 88.9, Mean Corpuscular Hemoglobin 28.6, Mean Corpuscular Hemoglobin Concent 32.2, Mean Platelet Volume 9.8, Neutrophils (%) (Auto) 79.1, Lymphocytes (%) (Auto) 14.3, Monocytes (%) (Auto) 4.4, Eosinophils (%) (Auto) 1.1, Basophils (%) (Auto) 0.4, Neutrophils # (Auto) 3.59, Lymphocytes # (Auto) 0.65, Monocytes # (Auto) 0.20, Eosinophils # (Auto) 0.05, Basophils # (Auto) 0.02 06/14/16 13:30 Test 06/14/16 13:30 06/14/16 13:40 06/14/16 14:35 White Blood Count 4.54 K/uL (4.8-10.8) Red Blood Count 4.68 M/uL (4.2-5.4) Hemoglobin 13.4 g/dL (12.0-16.0) Hematocrit 41.6 % (37-47) Mean Corpuscular Volume 88.9 fL (80-100) Mean Corpuscular Hemoglobin 28.6 pg (25-34) Mean Corpuscular Hemoglobin Concent 32.2 g/dl (32-36) Platelet Count 167 K/uL (130-400) Mean Platelet Volume 9.8 fL (7.4-10.4) Neutrophils (%) (Auto) 79.1 % Lymphocytes (%) (Auto) 14.3 % Monocytes (%) (Auto) 4.4 % Eosinophils (%) (Auto) 1.1 % Basophils (%) (Auto) 0.4 % Neutrophils # (Auto) 3.59 K/uL (1.4-6.5) Lymphocytes # (Auto) 0.65 K/uL (1.2-3.4) Monocytes # (Auto) 0.20 K/uL (0.11-0.59) Eosinophils # (Auto) 0.05 K/uL (0-0.5) Basophils # (Auto) 0.02 K/uL (0-0.2) RDW Standard Deviation 50.7 fL (36.4-46.3) RDW Coefficient of Variation 15.7 % (11.5-14.5) Immature Granulocyte % (Auto) 0.7 % Immature Granulocyte # (Auto) 0.03 K/uL (0.00-0.02) Prothrombin Time 10.1 SECONDS (9.0-12.0) Prothromb Time International Ratio 0.9 (0.9-1.1) Activated Partial Thromboplast Time 24.4 SECONDS (21.0-31.0) Partial Thromboplastin Ratio 0.9 Anion Gap 7.0 mmol/L (3-11) Est Creatinine Clear Calc Drug Dose 79.6 ml/min Estimated GFR () 108.1 Estimated GFR (Non- 93.3 BUN/Creatinine Ratio 9.9 (10-20) Calcium Level 9.2 mg/dl (8.5-10.1) Total Bilirubin 0.6 mg/dl (0.2-1) Direct Bilirubin 0.1 mg/dl (0-0.2) Aspartate Amino Transf (AST/SGOT) 27 U/L (15-37) Alanine Aminotransferase (ALT/SGPT) 29 U/L (12-78) Alkaline Phosphatase 50 U/L (45-117) Total Protein 6.5 gm/dl (6.4-8.2) Albumin 3.1 gm/dl (3.4-5.0) Lyme Disease IgG Antibody NEG (NEG) Lyme Disease IgM Antibody NEG (NEG) Lactic Acid Level 1.0 mmol/L (0.4-2.0) Urine Color YELLOW Urine Appearance CLEAR (CLEAR) Urine pH 8.5 (4.5-7.5) Urine Specific [place] 1.017 (1.000-1.030) Urine Protein NEG (NEG) Urine Glucose (UA) NEG (NEG) Urine Ketones TRACE (NEG) Urine Occult Blood NEG (NEG) Urine Nitrite NEG (NEG) Urine Bilirubin NEG (NEG) Urine Urobilinogen NEG (NEG) Urine Leukocyte Esterase MODERATE (NEG) Urine WBC (Auto) 10-30 /hpf (0-5) Urine RBC (Auto) 0-4 /hpf (0-4) Urine Hyaline Casts (Auto) 5-10 /lpf (0-5) Urine Epithelial Cells (Auto) >30 /lpf (0-5) Urine Bacteria (Auto) NEG (NEG) Medications Administered Medications (Trade) Dose Ordered Sig/Marge Route Start Time Stop Time Status Last Admin Dose Admin Sodium Chloride (Nss 1000ml) 1,000 ml @ 999 mls/hr Q1H1M STAT IV 06/14/16 13:24 06/14/16 14:24 DC 06/14/16 13:24 999 MLS/HR Morphine Sulfate (MoRPHine SULFATE INJ) 2 mg NOW STAT IV 06/14/16 13:30 06/14/16 13:34 DC 06/14/16 13:30 2 MG Dexamethasone Sodium Phosphate (Decadron Inj) 10 mg NOW ONCE IV 06/14/16 15:15 06/14/16 15:16 DC 06/14/16 15:25 10 MG Acetaminophen (Tylenol Tab) 1,000 mg NOW STAT PO 06/14/16 15:29 06/14/16 15:31 DC 06/14/16 15:36 1,000 MG Morphine Sulfate (MoRPHine SULFATE INJ) 2 mg STK-MED ONCE .ROUTE 06/14/16 15:39 06/14/16 15:40 DC 06/14/16 15:38 2 MG ECG Indication: tachycardia, weakness Rhythm: normal sinus Change: no significant change (compared to EKG from 04/04/2016) Medical Decision Patient is alert, oriented, interacting appropriately. Neurologic exam concerning for slight weakness on the left when compared to the right, though very subtle. No other neurologic abnormalities noted on exam. Given patient's prolonged symptoms and known metastatic brain disease, NO stroke alert was called at this time. Head CT was done which showed hemorrhagic metastases and increased intracranial edema. Infection workup was also done, including labs, urine, blood and urine cultures, and chest x-ray, all of which are fairly unremarkable. Cultures are pending, though no persistent SIRS criteria, therefore no antibiotics started at this time. Isolated tachycardia resolved after fluid bolus. I spoke with Dr. Hernandez, patient's oncologist, regarding patient's condition and T findings, he recommended giving patient 10 mg IV Decadron now and will restart the patient on her previous Decadron regimen at home, with plans to follow up with her tomorrow. I discussed all results and this plan with the patient, she verbalized understanding and are comfortable with this plan. She also verbalized understanding of return precautions, should any of her symptoms worsen. Patient was discussed with the attending physician, who agrees with my assessment and disposition. Impression Primary Impression: Metastatic melanoma of brain Additional Impression: Intracranial edema Departure Information Dispostion Home / Self-Care Condition GOOD Referrals Vishnu Wick M.D. (PCP) Patient Instructions My [facility] Additional Instructions Call Dr. Hernandez's office tomorrow to let him know how you are doing and to plan your follow-up care. 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 Drink plenty of fluids to stay well hydrated. Get plenty of rest and do not perform any physical exertion until you have follow up with your oncologist. Please return to the ER immediately for any worsening symptoms, including sudden or severe headache, confusion, weakness or numbness on one side of the body, difficulty speaking or slurred speech, severe dizziness or passing out, vision changes, fevers > 100.4, or any other concerns. Problem Qualifiers
[2016-06-14 14:03] LABS: BASO % 0.4 %; BASO ABS # 0.02 K/uL (0-0.2); COMPLETE YES; EOS % 1.1 %; HEMATOCRIT 41.6 % (37-47); IG% 0.7 %; LYMPH % 14.3 %; LYMPH ABS # 0.65 K/uL (1.2-3.4); MEAN CELL VOLUME 88.9 fL (80-100); MEAN CORPUSCULAR HEMOGLOBIN 28.6 pg (25-34); MEAN CORPUSCULAR HGB CONC 32.2 g/dl (32-36); MEAN PLATELET VOLUME 9.8 fL (7.4-10.4); MONO % 4.4 %; NEUT % 79.1 %; PLATELET COUNT 167 K/uL (130-400); RED BLOOD COUNT 4.68 M/uL (4.2-5.4); WHITE BLOOD COUNT 4.54 K/uL (4.8-10.8)
[2016-06-14 14:08] LABS: INR 0.9 (0.9-1.1); PARTIAL THROMBOPLASTIN RATIO 0.9; PROTHROMBIN TIME (PATIENT) 10.1 SECONDS (9.0-12.0)
--- NOTE | 2016-06-14 14:18 | DIAGNOSTIC IMAGING REPORT ---
TWO VIEW CHEST CLINICAL HISTORY: Unspecified infection follow-up. FINDINGS: AP and lateral chest radiographs are compared to study dated 07/05/2015. The cardiomediastinal silhouette is unremarkable. The lungs and pleural spaces are clear. There is no pneumothorax. The bony thorax appears intact. Surgical clips are seen in the right lower neck. IMPRESSION: The lungs are clear. Electronically signed by: Wesley Eller M.D. 06/14/2016 2:16 PM Dictated Date/Time: 06/14/2016 2:14 PM
[2016-06-14 14:20] LABS: BUN/CREATININE RATIO 9.9 (10-20); CREATININE 0.84 mg/dl (0.60-1.20); POTASSIUM 4.3 mmol/L (3.5-5.1)
[2016-06-14 14:22] LABS: CALCIUM 9.2 mg/dl (8.5-10.1)
--- NOTE | 2016-06-14 14:34 | DIAGNOSTIC IMAGING REPORT ---
CT SCAN OF THE BRAIN WITHOUT IV CONTRAST CLINICAL HISTORY: Change in mental status. COMPARISON STUDY: MRI of the brain dated 04/04/2016. TECHNIQUE: Unenhanced axial CT scan of the brain is performed from the vertex to the skull base. Automated dose control exposure was utilized. CT DOSE: 788.63 mGycm FINDINGS: Brain parenchyma: Again seen are findings of multifocal intracranial metastatic disease. Although direct comparison is difficult across modalities, this is likely similar in distribution to the 04/04/2016 MRI examination. The largest lesion is seen in the right frontal lobe on image #13 and measures up to 2.0 cm. These lesions are hyperdense consistent with hemorrhagic metastatic disease. There is edema surrounding hemorrhagic lesions in the left occipital lobe on image #15, the right frontal lobe on image #13, and the left frontal lobe on image #17. There is no midline shift or evidence of acute territorial ischemia by CT criteria. No extra-axial fluid collection is seen. Ventricles, sulci, cisterns: Normal in configuration. Intracranial vasculature: The visualized intracranial vasculature at the skull base is normal in appearance. Calvarium: Unremarkable. Sinuses and mastoids: The visualized paranasal sinuses are clear. The mastoid air cells are well pneumatized. Orbits: The bony orbits are grossly intact. IMPRESSION: 1. There is evidence of multifocal hemorrhagic intracranial metastatic disease. Although comparison across modalities is difficult, the distribution of lesions is similar to the 04/04/2016 MRI examination. 2. There is increasing edema identified around the largest hemorrhagic lesions as detailed above. 3. No midline shift is CT. There is no evidence of acute territorial ischemia by CT criteria. Electronically signed by: Wesley Eller M.D. 06/14/2016 2:32 PM Dictated Date/Time: 06/14/2016 2:27 PM
[2016-06-14 14:53] LABS: URINE APPEARANCE CLEAR (CLEAR); URINE BILIRUBIN NEG (NEG); URINE COLOR YELLOW; URINE EPITHELIAL CELL AUTO >30 /lpf (0-5); URINE NITRITE NEG (NEG); URINE PH 8.5 (4.5-7.5); URINE SPECIFIC GRAVITY 1.017 (1.000-1.030); UROBILINOGEN NEG (NEG)
[2016-06-14 14:54] LABS: MANUAL MICROSCOPIC REQUIRED? NO; REVIEW REQ? NO
[2016-06-14 14:54] LABS: LYME DISEASE AB IGG NEG (NEG)
[2016-06-14 15:00] LABS: LYME DISEASE AB IGM NEG (NEG)
[2016-06-14] MEDS ORDERED: DEXAMETHASONE SOD INJ 10 MG/ML VIAL IV ONE (15:15)
[2016-06-14 15:23] VITALS: BP 114/68; PULSE 74; O2SAT 100
[2016-06-14] MEDS ORDERED: ACETAMINOPHEN 500 MG TAB PO STA (15:29)
[2016-06-14] MEDS ORDERED: MoRPHine SULFATE 2 MG/ML CARP ONE (15:39)
[2016-11-21] MEDS ORDERED: LEVE500T13 PO (16:02)
[2016-11-21] MEDS ORDERED: ALBUAER INH (16:02)
[2016-11-21] MEDS ORDERED: DIPH1CRE TOP (16:02)
[2016-11-21] MEDS ORDERED: SYMIN/8045 INH (16:02)
[2016-11-21] MEDS ORDERED: OXYC1TAB3 PO (16:02)
[2016-11-21] MEDS ORDERED: [UNRECOGNIZED DRUG - CODE] PO (16:02)
[2016-11-21] MEDS ORDERED: CLOT10TR2 MT (16:02)
[2016-11-21] MEDS ORDERED: PRED20TA PO (16:02)
[2016-11-21] MEDS ORDERED: MAGIC1 MT (16:02)
[2016-11-21] MEDS ORDERED: LIDOCAINE TOP (16:02)
[2016-11-21] MEDS ORDERED: MRN/25 PO (16:02)
[2016-11-21] MEDS ORDERED: TRIA37.5 PO (16:02)
[2016-11-21] MEDS ORDERED: [UNRECOGNIZED DRUG - CODE] PO (16:02)
[2016-11-21] MEDS ORDERED: FLUC100T4 PO (16:02)
[2016-11-21] MEDS ORDERED: DICY10CA55 PO (16:02)
[2016-11-21] MEDS ORDERED: DIPHENHYDRAMINE TOP (16:02)
[2016-11-21] MEDS ORDERED: ONDA8TAB6 PO (16:02)
[2016-11-21] MEDS ORDERED: MEGE40TA13 PO (16:02)
[2016-11-21] MEDS ORDERED: IMD/2 PO (16:02)
== END 2016-06-14 16:10 | disposition home or self-care (01) ==
LOC: C.ED 12:43 → C.EDC 16:10
DX: C71.9 Malignant neoplasm of brain, unspecified (principal); G93.6 Cerebral edema; J45.909 Unspecified asthma, uncomplicated; C43.9 Malignant melanoma of skin, unspecified; C77.9 Secondary and unspecified malignant neoplasm of lymph node, unspecified; C79.51 Secondary malignant neoplasm of bone; C78.7 Secondary malignant neoplasm of liver and intrahepatic bile duct

== ENCOUNTER → 2016-06-20 | Outpatient (CLI) | payer BC ==
[~2016-06-20] MED LIST changes: +ALBUAER INH; +CLOT10TR2 MT; +DICY10CA55 PO; +DIPH1CRE TOP; +DIPHENHYDRAMINE TOP; +FLUC100T4 PO; +GADAVIST IV PRN; +IMD/2 PO; +LEVE500T13 PO; +LEVE750T PO; +LIDOCAINE TOP; +MAGIC1 MT; +MEGE40SU PO; +MEGE40TA13 PO; +MGCL40 PO; +MRN/25 PO; +ONDA8TAB6 PO; +OXYC1TAB3 PO; +PRED20TA PO; +SYMIN/8045 INH; +TRIA37.5 PO; +[UNRECOGNIZED DRUG - CODE] PO; +[UNRECOGNIZED DRUG - CODE] PO; +[UNRECOGNIZED DRUG - OTHER] IV
--- NOTE | 2016-06-20 10:51 | DIAGNOSTIC IMAGING REPORT ---
MRI OF THE BRAIN COMBO CLINICAL HISTORY: Seizure. History of metastatic melanoma to the brain. COMPARISON STUDY: CT of the brain dated 06/14/2016 and MRI of the brain dated 04/04/2016. TECHNIQUE: MRI of the brain was performed utilizing various T1 and T2-weighted sequences in the axial, sagittal, and coronal planes. Contrast-enhanced sequences were acquired following the administration of 5 cc of Gadavist. The examination was performed utilizing the seizure protocol. FINDINGS: Brain parenchyma: Again seen is a large T1 hyperintense lesion identified in the right frontal lobe. The degree of surrounding edema has improved from 04/04/2016, and this has decreased in size now measuring 2.2 x 1.7 cm (previously measured 3.1 x 2.8 x 2.2 cm.) The decrease in size likely represents resolving hemorrhage. Hemosiderin deposition is again noted within the this lesion. A lesion in the left temporo-occipital region seen on axial image #11 has significantly increased in size, now measuring up to 1.7 cm. There is a rim of surrounding edema as well as hemosiderin, likely representing interval hemorrhage. No midline shift is seen. There is no restricted diffusion typical for acute ischemia. There are numerous (greater than 30) additional T1 hyperintense lesions seen throughout the brain parenchyma, all of which appear to have modestly increased in size from 04/04/2016. These likely demonstrate postcontrast enhancement; however, this is difficult to assess given the innate T1 hyperintensity. No extra-axial fluid collection is seen. The cerebellar tonsils are normal in configuration. Ventricles, sulci, and cisterns: Normal in configuration. Pituitary and sella: Unremarkable. Intracranial vasculature: Normal flow voids are maintained at the skull base. Orbits: The bony orbits are grossly intact. Orbital contents are normal in appearance. Sinuses and mastoids: A retention cyst is noted in the right maxillary antrum. Trace mucosal thickening is seen within both maxillary antra. The remaining paranasal sinuses are clear. The mastoid air cells are well pneumatized. Calvarium: There is heterogeneity within the clivus such that a bone lesion is not excluded. Cervical cord: Partially visualized cervical spinal cord is normal in morphology and signal intensity. IMPRESSION: 1. Overall progression of diffuse/multifocal intracranial metastatic disease, with greater than 30 lesions identified as compared to 04/04/2016. The signal characteristics remain consistent with metastatic melanoma. 2. There is increasing size and surrounding edema involving a left temporo-occipital lesion as compared to 04/04/2016 consistent with interval hemorrhage. 3. The largest lesion in the right frontal region has decreased in size and surrounding edema has almost completely resolved from 04/04/2016, likely representing resolving hemorrhage. 4. There is no midline shift or evidence of acute ischemia. Electronically signed by: Wesley Eller M.D. 06/20/2016 10:50 AM Dictated Date/Time: 06/20/2016 10:40 AM
== END | disposition home or self-care (01) ==
LOC: C.MRI 09:46
PROVIDERS: ATTEND Physician Assistant Medical
DX: C43.4 Malignant melanoma of scalp and neck (principal); C79.31 Secondary malignant neoplasm of brain

== ENCOUNTER → 2016-08-17 | Outpatient (CLI) | payer BC ==
[~2016-08-17] MED LIST changes: -DXM4 PO; -LEVE750T PO; -MAGIC1 MT; +MAGIC1 PO; -MEGE40SU PO; -MGCL40 PO
--- NOTE | 2016-08-17 20:18 | DIAGNOSTIC IMAGING REPORT ---
MRI OF THE BRAIN WITHOUT AND WITH IV CONTRAST CLINICAL HISTORY: Melanoma with brain metastases. COMPARISON STUDY: MRI of the brain June 20, 2016. TECHNIQUE: Utilizing a 1.5 Marisel magnet and dedicated coil, multiplanar, multiecho imaging of the brain was performed pre and postcontrast administration. IV administration of 9 mL of Gadavist contrast was uneventful. Double dose IV contrast was administered as per protocol. Thin cut post contrast imaging was also performed. FINDINGS: Numerous enhancing parenchymal lesions have moderately increased in size since MRI of June 20, 2016. Many of these lesions are inherently T1 hyperintense. There is mild edema associated with several of these lesions which has slightly increased since prior MRI. There is no significant mass effect. There is no herniation. Restricted diffusion within several these lesions is likely due to hemorrhage which has been shown on prior exams. An index right frontal lobe lesion is similar to prior exam, measuring 2 x 1.8 cm. An anterior left temporal lobe shown on image 44 of 136 of the thin cut postcontrast images measures 1.8 x 1.5 cm. It previously measured 0.9 x 0.9 cm on exam of June 20, 2016. A left parietal lobe lesion shown on image 59 measures 2 x 1.8 cm. It previously measured 1.6 x 1.3 cm. A left frontal lobe lesion shown on image 95 measures 1.5 x 1.2 cm. It previously measured 1.1 x 0.9 cm. There are numerous smaller lesions which have slightly increased in size since prior exam. There is moderate mucosal thickening of the left maxillary sinus with a small air-fluid level. No calvarial lesions are present. Flow-voids for the major intracranial vessels are present. Ventricular system is normal. Basilar cisterns are patent. There are no extra-axial collections. IMPRESSION: Moderate increase in size of numerous metastases since MRI of June 20, 2016, as detailed above. Mild increase in mild edema associated with several of these lesions. No significant mass effect. No herniation. Electronically signed by: Manuel Reese M.D. 08/17/2016 8:17 PM Dictated Date/Time: 08/17/2016 6:31 PM
== END | disposition home or self-care (01) ==
LOC: C.MRI 17:36
PROVIDERS: ATTEND Physician Assistant Medical
DX: C43.4 Malignant melanoma of scalp and neck (principal); C79.31 Secondary malignant neoplasm of brain

== ENCOUNTER 2016-10-21 17:35 | Emergency (ER) | payer BC ==
[~2016-10-21 17:35] MED LIST changes: -ALBUAER INH; -CLOT10TR2 MT; -DICY10CA55 PO; -DIPH1CRE TOP; -DIPHENHYDRAMINE TOP; -FLUC100T4 PO; -GADAVIST IV PRN; -IMD/2 PO; -LEVE500T13 PO; -LIDOCAINE TOP; -MAGIC1 PO; -MEGE40TA13 PO; -MRN/25 PO; -ONDA8TAB6 PO; -OXYC1TAB3 PO; -PRED20TA PO; -SYMIN/8045 INH; -TRIA37.5 PO; -[UNRECOGNIZED DRUG - CODE] PO; -[UNRECOGNIZED DRUG - CODE] PO
[2016-10-21 17:40] VITALS: TEMP 36.9
[2016-10-21 17:44] VITALS: O2SAT 100
[2016-10-21] MEDS ORDERED: ONDANSETRON 4MG OD TAB ONE (17:47)
[2016-10-21] MEDS ORDERED: SODIUM CHLORIDE 0.9% 1000ML 500 ML IV STA (17:48)
--- NOTE | 2016-10-21 18:01 | EMERGENCY ROOM VISIT NOTE ---
History Report prepared by [place]: Ronny Singh Under the Supervision of: Dr. Wesley Fuentes M.D. First contact with patient: 17:41 Chief Complaint: ALCOHOL OVERDOSE Stated Complaint: ALCOHOL History of Present Illness The patient is a 31 year old female who presents to the Emergency Room with an alcohol overdose that began prior to arrival. Nursing staff states the patient was found vomiting at a tailgate. They report no one was with her, and she had a bag of loose pills with her. Nursing staff notes the patient is HIV positive and came via EMS. The patient denies drug use, pain, and trauma to her head. The patient's medical records state the patient takes Keppra, and she has a history of melanoma. Her last MRI from 2 months ago showed that her disease has metastasized to her brain with multiple tumors. HPI limited secondary to the patient's alcohol intoxication. Review of Systems Truly unobtainable as she appears intoxicated with alcohol. 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 (6) Seizure Surgical Problems: (1) History of radical neck surgery Family History Cancer Social History Smoking Status: Unknown if Ever Smoked Drug Use: none Marital Status: single Occupation Status: employed Current/Historical Medications Scheduled Control Pills ( Control Pills), 1 TAB PO DAILY Levetiractam (Levetiracetam), 500 MG PO BID Memantine (Namenda), 10 MG PO BID Omeprazole (Prilosec), 40 MG PO QAM [Optivo], 1 DOSE IV Q3WK Allergies Coded Allergies: Penicillins (Unverified Allergy, Unknown, unknown, 06/14/16) Physical Exam Vital Signs Date Time Temp Pulse Resp B/P (MAP) Pulse Ox O2 Delivery O2 Flow Rate FiO2 10/21/16 23:01 90 10/21/16 22:55 88 20 95/62 97 Room Air 10/21/16 21:00 85 18 95/52 96 Room Air 10/21/16 20:13 87 18 107/61 100 Room Air 10/21/16 18:41 96 16 114/71 99 Room Air 10/21/16 17:51 88 10/21/16 17:44 100 Room Air 10/21/16 17:40 36.9 86 20 145/77 99 Room Air Physical Exam GENERAL: Patient is in no acute distress. HEENT: No acute trauma, normocephalic atraumatic, mucous membranes moist, no nasal congestion, no scleral icterus. PERRL. No scalp hematoma or trauma noted. NECK: No stridor, no adenopathy, no meningismus, trachea is midline. LUNGS: Clear to auscultation bilaterally, no wheeze, no rhonchi, breath sounds equal. HEART: Without murmurs gallops or rubs, regular rate and rhythm. ABDOMEN: Soft, nontender, bowel sounds positive, no hernias, no peritonitis. EXTREMITIES: No cyanosis or edema, full range of motion of all the joints without pain or difficulty, no signs for acute trauma. NEUROLOGIC: Awake, appears intoxicated with alcohol, slurred speech, confused, moves all extremities equally. SKIN: No rash, no jaundice, no diaphoresis. Medical Decision & Procedures Laboratory Results 10/21/16 18:03 10/21/16 18:03 Test 10/21/16 18:03 10/21/16 20:05 Red Blood Count 4.77 M/uL (4.2-5.4) Mean Corpuscular Volume 89.9 fL (80-100) Mean Corpuscular Hemoglobin 30.2 pg (25-34) Mean Corpuscular Hemoglobin Concent 33.6 g/dl (32-36) RDW Standard Deviation 47.1 fL (36.4-46.3) RDW Coefficient of Variation 14.3 % (11.5-14.5) Mean Platelet Volume 10.3 fL (7.4-10.4) Anion Gap 13.0 mmol/L (3-11) Estimated GFR () 63.3 Estimated GFR (Non- 54.6 BUN/Creatinine Ratio 10.5 (10-20) Calcium Level 8.3 mg/dl (8.5-10.1) Human Chorionic Gonadotropin, Qual NEG (NEG) Ethyl Alcohol mg/dL 313.0 mg/dl (0-3) Urine Opiates Screen NEG (NEG) Urine Methadone, Qualitative NEG (NEG) Urine Barbiturates NEG (NEG) Urine Phencyclidine (PCP) Level NEG (NEG) Ur Amphetamine/Methamphetamine NEG (NEG) MDMA (Ecstasy) Screen NEG (NEG) Urine Benzodiazepines Screen NEG (NEG) Urine Cocaine Metabolite NEG (NEG) Urine Marijuana (THC) NEG (NEG) Laboratory results reviewed by me. Medications Administered Medications (Trade) Dose Ordered Sig/Marge Route Start Time Stop Time Status Last Admin Dose Admin Ondansetron HCl (Zofran Odt) 4 mg STK-MED ONCE .ROUTE 10/21/16 17:47 10/21/16 17:48 DC 10/21/16 17:49 4 MG Sodium Chloride 500 ml @ 999 mls/hr Q31M STAT IV 10/21/16 17:48 10/21/16 18:18 DC 10/21/16 19:31 999 MLS/HR ED Course 1743: The patient was evaluated in room A12B. A complete history and physical exam was performed. 174: Ordered Zofran Odt 4mg .ROUTE 174: Ordered Sodium Chloride 500 ml @ 999 mls/hr IV 2301: Reevaluated the patient. Her mother is coming to pick her up. Discussed results and discharge instructions: she verbalized understanding and agreement. The patient is ready for discharge. Medical Decision The patient is a 31 year old female who presents to the ED with an alcohol overdose. Differential diagnoses considered include drug abuse, alcohol abuse, head trauma, anemia, dehydration, electrolyte imbalance. There is no leukocytosis or concerning anemia. No significant electrolyte abnormality or kidney failure. testing is negative. Alcohol level is over 300, consistent with her history. The patient received IV saline, she was given sublingual Zofran as she had been vomiting. The patient has been resting comfortably. I don't find evidence for trauma on her exam. There was no reported trauma and she herself denies trauma. It appears that she has had too much alcohol this afternoon. This explains her presentation. Of note, she has a history of multiple myeloma, but I do not think this is part of the reason for visit today. The patient is now awake after being watched here for several hours. Her mother is on the way to take her home. She is stable for discharge. Impression Primary Impression: Alcohol overdose Additional Impression: Vomiting Scribe Attestation The scribe's documentation has been prepared under my direction and personally reviewed by me in its entirety. I confirm that the note above accurately reflects all work, treatment, procedures, and medical decision making performed by me. Departure Information Dispostion Home / Self-Care Referrals Vishnu Wick M.D. (PCP) Forms HOME CARE DOCUMENTATION FORM, IMPORTANT VISIT INFORMATION Patient Instructions My [facility] Additional Instructions rest fluids do not use alcohol in excess return if worsening stay well hydrated Problem Qualifiers
[2016-10-21 18:15] LABS: HEMATOCRIT 42.9 % (37-47); MEAN CELL VOLUME 89.9 fL (80-100); MEAN CORPUSCULAR HEMOGLOBIN 30.2 pg (25-34); MEAN CORPUSCULAR HGB CONC 33.6 g/dl (32-36); MEAN PLATELET VOLUME 10.3 fL (7.4-10.4); PLATELET COUNT 214 K/uL (130-400); RED BLOOD COUNT 4.77 M/uL (4.2-5.4); WHITE BLOOD COUNT 6.54 K/uL (4.8-10.8)
[2016-10-21 18:35] LABS: PREG INTERNAL NEGATIVE QC NEG CLEAR BACKGROUND; PREG INTERNAL POSITIVE QC POS CONTROL LINE
[2016-10-21 18:37] LABS: BLOOD UREA NITROGEN 14 mg/dl (7-18); GLUCOSE 205 mg/dl (70-99)
[2016-10-21 18:38] LABS: BUN/CREATININE RATIO 10.5 (10-20); CALCIUM 8.3 mg/dl (8.5-10.1); CARBON DIOXIDE 21 mmol/L (21-32); CHLORIDE 102 mmol/L (98-107); POTASSIUM 3.2 mmol/L (3.5-5.1); SODIUM 136 mmol/L (136-145)
[2016-10-21 20:48] LABS: BENZODIAZEPINE, URINE NEG (NEG); COCAINE,URINE NEG (NEG); PHENCYCLIDINE, URINE NEG (NEG)
[2016-10-22 00:19] VITALS: BP 108/86; PULSE 92; O2SAT 96
[2016-11-21] MEDS ORDERED: MRN/25 PO (16:02)
[2016-11-21] MEDS ORDERED: IMD/2 PO (16:02)
[2016-11-21] MEDS ORDERED: MEGE40TA13 PO (16:02)
[2016-11-21] MEDS ORDERED: CLOT10TR2 MT (16:02)
[2016-11-21] MEDS ORDERED: TRIA37.5 PO (16:02)
[2016-11-21] MEDS ORDERED: LIDOCAINE TOP (16:02)
[2016-11-21] MEDS ORDERED: DIPH1CRE TOP (16:02)
[2016-11-21] MEDS ORDERED: DICY10CA55 PO (16:02)
[2016-11-21] MEDS ORDERED: OXYC1TAB3 PO (16:02)
[2016-11-21] MEDS ORDERED: DIPHENHYDRAMINE TOP (16:02)
[2016-11-21] MEDS ORDERED: SYMIN/8045 INH (16:02)
[2016-11-21] MEDS ORDERED: PRED20TA PO (16:02)
[2016-11-21] MEDS ORDERED: ALBUAER INH (16:02)
[2016-11-21] MEDS ORDERED: FLUC100T4 PO (16:02)
[2016-11-21] MEDS ORDERED: [UNRECOGNIZED DRUG - CODE] PO (16:02)
[2016-11-21] MEDS ORDERED: [UNRECOGNIZED DRUG - CODE] PO (16:02)
[2016-11-21] MEDS ORDERED: MAGIC1 PO (16:02)
[2016-11-21] MEDS ORDERED: LEVE500T13 PO (16:02)
[2016-11-21] MEDS ORDERED: ONDA8TAB6 PO (16:02)
== END 2016-10-22 00:18 | disposition home or self-care (01) ==
LOC: EDBD 17:35 → C.EDA 17:38
DX: T51.0X1A Toxic effect of ethanol, accidental (unintentional), initial encounter (principal); F10.120 Alcohol abuse with intoxication, uncomplicated; Y90.8 Blood alcohol level of 240 mg/100 ml or more; C79.31 Secondary malignant neoplasm of brain; C77.9 Secondary and unspecified malignant neoplasm of lymph node, unspecified; C79.51 Secondary malignant neoplasm of bone; C78.7 Secondary malignant neoplasm of liver and intrahepatic bile duct; J45.909 Unspecified asthma, uncomplicated; Z85.820 Personal history of malignant melanoma of skin; Z80.9 Family history of malignant neoplasm, unspecified; Z79.3 Long term (current) use of hormonal contraceptives; Z79.899 Other long term (current) drug therapy

== ENCOUNTER → 2016-11-06 | Outpatient (CLI) | payer BC ==
[~2016-11-06] MED LIST changes: +ALBUAER INH; +CLOT10TR2 MT; +DICY10CA55 PO; +DIPH1CRE TOP; +DIPHENHYDRAMINE TOP; +DXM4 PO; +FLUC100T4 PO; +GADAVIST IV PRN; +IMD/2 PO; +LEVE500T13 PO; +LIDOCAINE TOP; +MAGIC1 PO; +MEGE40SU PO; +MEGE40TA13 PO; +MRN/25 PO; +ONDA8TAB6 PO; +OXYC1TAB3 PO; +PRED20TA PO; +SYMIN/8045 INH; +TRIA37.5 PO; +[UNRECOGNIZED DRUG - CODE] PO; +[UNRECOGNIZED DRUG - CODE] PO
--- NOTE | 2016-11-06 16:32 | DIAGNOSTIC IMAGING REPORT ---
BRAIN COMBO CLINICAL HISTORY: 31 years-old Female presenting with METASTATIC MELANOMA W/BRAIN METS. TECHNIQUE: Multisequence, multiplanar MR imaging of the brain was performed before and after the administration of intravenous contrast. IV contrast: 4.5 mL of Gadavist. COMPARISON: 08/17/2016. FINDINGS: Multifocal bilateral intrinsically T1 hyperintense lesions consistent with known treatment metastatic disease. Many of these demonstrate central restricted diffusion. There has been prominent interval increase in size of several lesions most notably in the left frontal lobe. In this region, enlarging lesions are noted. Additional new lesion in the paramedian right frontal lobe area and additional bilateral lesions are stable from prior. Interval development of new periventricular white matter T2/FLAIR hyperintensity in the parieto-occipital region. Partial opacification of the right maxillary sinus, increased from prior. Interval resolution of left maxillary sinus mucosal thickening. Ventricles and sulci normal in size. No extra-axial fluid collection. T2 skull base flow voids preserved. Postcontrast imaging demonstrates grossly patent intracranial vasculature. Bone marrow signal intensity within the calvarium within normal limits. IMPRESSION: 1. Interval increase in size of several lesions most prominently in the left frontal lobe. This is most concerning for progression of disease, though an element of hemorrhage into existing lesions may also be present. 2. Interval development of abnormal periventricular white matter signal intensity in the posterior cerebrum. This appearance is nonspecific and could be seen in the setting of posterior reversible encephalopathy syndrome or post radiation change among other etiologies. Correlate clinically. Electronically signed by: Grabiel Sotelo M.D. 11/06/2016 4:30 PM Dictated Date/Time: 11/06/2016 4:20 PM
== END | disposition home or self-care (01) ==
LOC: C.MRI 15:02
PROVIDERS: ATTEND Internal Medicine Hematology
DX: C79.9 Secondary malignant neoplasm of unspecified site (principal); C79.31 Secondary malignant neoplasm of brain

== ENCOUNTER → 2016-11-21 | Outpatient (CLI) | payer BC ==
[~2016-11-21] MED LIST changes: -GADAVIST IV PRN; +LEVE750T PO; +MAGIC1 MT; -MAGIC1 PO; +MGCL40 PO
[2016-11-21 15:18] VITALS: BP 137/93; PULSE 60; TEMP 36.6; O2SAT 100
--- NOTE | 2016-11-21 16:29 | Radiation Oncology Follow-Up ---
Radiation Oncology Follow-Up Date of Visit Nov 21, 2016. Reason For Visit Six-month follow-up Radiation Completion Date 04/26/16 Diagnosis (1) Malignant melanoma Status: Acute Stage: IV Permanent Comment: Scalp lesion and right neck node Status post excison and neck dissection Declined Interferon Liver and bone metastasis stated Yervoy Brain metastasis Status post whole brain radiation completed 04/26/2016 received 3,750 cGy Last Edited By: Akanksha Pathak on May 08, 2016 15:22 History of Present Illness Ms. Love is a 31-year-old female that was previously diagnosed with metastatic melanoma. The patient was initially diagnosed with a scalpel lesion and right neck node and was treated with surgical resection. She seen in consultation by Dr. Danielito Hernandez for her interferon therapy however the patient refused. Unfortunately, she did develop metastatic disease involving the liver and bones. She has been treated previously with a Yervoy and was most recently started on Keytruda underneath the supervision of Dr. Hernandez. More recently, the patient did have a complex seizure witnessed by a friend and the patient was brought to the emergency room last night. She had an MRI of the brain on 04/04/2016 which revealed widespread metastatic disease involving both cerebral hemispheres and cerebelli ; additionally, there was a dominant lesion involving the right frontal lobe measuring 3.1 cm. The patient was started on Keppra and Decadron. We are now being asked to evaluate the patient for consideration of radiation therapy. Whole brain radiation was given from April 06 to 04/26/2016. She received 3750 cGy. She was also started on Namenda To help prevent cognitive changes post therapy. Interim History She continues to have intermittent headaches. She denies any visual changes. She has some nausea. This is not constant. She is receiving chemotherapy through Dr. Hernandez's office. On 09/29/2016 she was seen at [facility] and underwent gamma knife therapy. 22 lesions were treated. She had been tentatively scheduled to return in a month for additional treatment. She had a recheck MRI scheduled through Dr. Hernandez's office on 11/06/2016. This showed interval increase in size of several lesions most prominently in the left frontal lobe. This is most concerning for progression of disease, though an element of hemorrhage into existing lesions may also be present. Interval development of abnormal periventricular white matter signal intensity in the posterior cerebrum. This appearance is nonspecific and could be seen in the setting of posterior reversible encephalopathy syndrome or post radiation change among other etiologies. The chemotherapy she is on has been adjusted due to severe dermatologic reactions. Allergies Coded Allergies: Penicillins (Unverified Allergy, Unknown, unknown, 06/14/16) Home Medications Scheduled Control Pills ( Control Pills), 1 TAB PO DAILY Budesonide/Formoterol Fumarate (Symbicort 80/4.5 Inhaler), 2 PUFFS INH BID Clotrimazole (Mycelex), 10 MG MT 5XD Cobimetinib Fumarate (Cotellic), 1 TAB PO DAILY Dicyclomine Hcl (Bentyl), 1 CAP PO TID Diphenhy/Alum/Mag/Sucralfa (Magic Swizzle - Diphenhy/Alum/Mag/Sucralfa), 1 TSP PO BID Dronabinol (Marinol), 1 CAP PO BID Fluconazole (Diflucan), 1 TAB PO DAILY Levetiracetam (Keppra), 1 TAB PO BID Levetiractam (Levetiracetam), 500 MG PO BID Megestrol Acetate (Megace), 40 MG PO DAILY Omeprazole (Prilosec), 40 MG PO QAM Prednisone (Prednisone), 1 TAB PO DAILY Vemurafenib (Zelboraf), 2 TAB PO BID [Diphenhy/Lidocaine], 10 ML TOP Q5H Scheduled PRN Albuterol Sulfate (Proventil Hfa), 2 PUFF INH Q4 PRN for Cough Diphenhydramine-Zinc Acetate (Benadryl), TOP for To affected area PRN Loperamide Hcl (Imodium), 2 MG PO QID PRN for Diarrhea Ondansetron Hcl (Zofran), 8 MG PO Q8 PRN for Nausea Oxycodone Ir (Roxicodone Ir), 5 MG PO Q4H PRN for Severe Pain Triamterene/Hctz (Dyazide 37.5MG/25MG), 1 CAP PO DAILY PRN for Edema Review of Systems Gastrointestinal: Symptoms: WNL, Nausea GI Comments: Waves of nausea come and go couple times a week Oral: Symptoms: No Problems Respiratory: Symptoms: WNL, Dry Cough Other Respiratory: Dry cough at times - uses inhaler PRN Urinary: Symptoms: WNL Skin: Symptoms: No Problems Physical Exam Vital Signs Date Time Temp Pulse Resp B/P (MAP) Pulse Ox O2 Delivery O2 Flow Rate FiO2 11/21/16 15:18 36.6 60 16 137/93 100 Fatigue: None General Appearance: + thin, + pertinent finding (mild briones face) Eyes: normal inspection, PERRL, EOMI ENT: normal ENT inspection, hearing grossly normal, pharynx normal Neck: no adenopathy, thyroid normal, + pertinent finding (discoloration of the skin on the right side of the neck) Respiratory/Chest: lungs clear, no respiratory distress, no accessory muscle use Cardiovascular: regular rate, rhythm, no gallop, no murmur Abdomen: non tender, soft Extremities: no pedal edema Neurologic/Psychiatric: physical anthropologist II-XII nml as tested, no motor/sensory deficits, alert, normal mood/affect Skin: warm/dry Laboratory Studies Test 10/21/16 18:03 10/21/16 20:05 White Blood Count 6.54 K/uL (4.8-10.8) Red Blood Count 4.77 M/uL (4.2-5.4) Hemoglobin 14.4 g/dL (12.0-16.0) Hematocrit 42.9 % (37-47) Mean Corpuscular Volume 89.9 fL (80-100) Mean Corpuscular Hemoglobin 30.2 pg (25-34) Mean Corpuscular Hemoglobin Concent 33.6 g/dl (32-36) RDW Standard Deviation 47.1 fL (36.4-46.3) RDW Coefficient of Variation 14.3 % (11.5-14.5) Platelet Count 214 K/uL (130-400) Mean Platelet Volume 10.3 fL (7.4-10.4) Sodium Level 136 mmol/L (136-145) Potassium Level 3.2 mmol/L (3.5-5.1) Chloride Level 102 mmol/L (98-107) Carbon Dioxide Level 21 mmol/L (21-32) Anion Gap 13.0 mmol/L (3-11) Blood Urea Nitrogen 14 mg/dl (7-18) Creatinine 1.30 mg/dl (0.60-1.20) Estimated GFR () 63.3 Estimated GFR (Non- 54.6 BUN/Creatinine Ratio 10.5 (10-20) Random Glucose 205 mg/dl (70-99) Calcium Level 8.3 mg/dl (8.5-10.1) Human Chorionic Gonadotropin, Qual NEG (NEG) Ethyl Alcohol mg/dL 313.0 mg/dl (0-3) Urine Opiates Screen NEG (NEG) Urine Methadone, Qualitative NEG (NEG) Urine Barbiturates NEG (NEG) Urine Phencyclidine (PCP) Level NEG (NEG) Ur Amphetamine/Methamphetamine NEG (NEG) MDMA (Ecstasy) Screen NEG (NEG) Urine Benzodiazepines Screen NEG (NEG) Urine Cocaine Metabolite NEG (NEG) Urine Marijuana (THC) NEG (NEG) Additional Studies Patient: JOHNNIE Address1: [address] [facility] Rec: [id number] Address2: Acct ID: [id number] [facility] Zip: [place] [id number] Date: 1985 Sex: F Room/Bed: Ref Phy: No Yusuf M.D. SC: C.MRI Att Phy: Danielito Hernandez M.D. Report #: [id number] Arabella Phy: Vishnu Wick M.D. Test: [facility] Admit Phy: Pricing Coordinator: MCCUBR Interpreting Phy: Grabiel Sotelo MD Diagnosis: METASTATIC MELANOMA W/BRAIN METS Ordering Phy: Danielito Hernandez M.D. Service Date: 11/06/16 Admit Date: 11/06/16 MNE: [id number] CONF: DICTATED BY: Grabiel Sotelo MD]] CC: No Yusuf M.D. Shannon, Dennis, M.D. Wolfe, David W., M.D. Endcc: [~ rep ct add3]] BRAIN COMBO CLINICAL HISTORY: 31 years-old Female presenting with METASTATIC MELANOMA W/BRAIN METS. TECHNIQUE: Multisequence, multiplanar MR imaging of the brain was performed before and after the administration of intravenous contrast. IV contrast: 4.5 mL of Gadavist. COMPARISON: 08/17/2016. FINDINGS: Multifocal bilateral intrinsically T1 hyperintense lesions consistent with known treatment metastatic disease. Many of these demonstrate central restricted diffusion. There has been prominent interval increase in size of several lesions most notably in the left frontal lobe. In this region, enlarging lesions are noted. Additional new lesion in the paramedian right frontal lobe area and additional bilateral lesions are stable from prior. Interval development of new periventricular white matter T2/FLAIR hyperintensity in the parieto-occipital region. Partial opacification of the right maxillary sinus, increased from prior. Interval resolution of left maxillary sinus mucosal thickening. Ventricles and sulci normal in size. No extra-axial fluid collection. T2 skull base flow voids preserved. Postcontrast imaging demonstrates grossly patent intracranial vasculature. Bone marrow signal intensity within the calvarium within normal limits. IMPRESSION: 1. Interval increase in size of several lesions most prominently in the left frontal lobe. This is most concerning for progression of disease, though an element of hemorrhage into existing lesions may also be present. 2. Interval development of abnormal periventricular white matter signal intensity in the posterior cerebrum. This appearance is nonspecific and could be seen in the setting of posterior reversible encephalopathy syndrome or post radiation change among other etiologies. Correlate clinically. Electronically signed by: Grabiel Sotelo M.D. 11/06/2016 4:30 PM Dictated Date/Time: 11/06/2016 4:20 PM Assessment & Plan (Attending) Ms. Love is an 31 year old female with metastatic melanoma. She most recently was treated extensively with gamma knife at [facility] by Dr. Dillon for 22 metastatic deposits. She has previously undergone a course of whole brain radiation therapy as well. Unfortuately, the most recent scans most likely do not show significant improvement but this cannot be confirmed until we obtain the previous MRI obtained during the gamma knife procedure and then discuss the results with Dr. Dillon. At this point, I have requested the MRI from [facility] so our radiologists can compare her most recent MRI of the brain to the gamma knife MRI. Additionally, I will have our MRI sent to Dr. Dillon and then get his input to determine if the patient should go back to [facility] for further gamma knife. I will also relay this information to Dr. Hernandez when I have Dr. Dillon's input as well. Dunia and her mother were quite stoic and sad regarding the overall clinical picture and prognosis. I offered to answer any questions for them and address any issues I possibly could. They appreciated the time we spent. We will follow them as needed. I told them that I will call them when we have completed our full review of her most recent gamma knife treatment. Total Time In Follow-Up I spent 15 minutes speaking to the patient performing examination. I spent 15 minutes reviewing information completing this note. Total Time (Attending) In Follow-Up I spent 30 minutes examining and counseling the patient. I spent 15 minutes completing this note. [employer]GE[employer]OR Copy To Vishnu Wick M.D.; Tarik Luu MD; Danielito Hernandez M.D.
== END | disposition home or self-care (01) ==
LOC: C.ONC 15:07
PROVIDERS: ATTEND Physician Assistant Medical
DX: Z08 Encounter for follow-up examination after completed treatment for malignant neoplasm (principal); Z92.3 Personal history of irradiation; Z85.820 Personal history of malignant melanoma of skin

== ENCOUNTER 2016-12-04 13:31 | Emergency (ER) | payer BC ==
[~2016-12-04] VITALS: Ht 167.6 cm; Wt 43.0 kg
[~2016-12-04 13:31] MED LIST changes: -DXM4 PO; -LEVE750T PO; -MAGIC1 MT; +MAGIC1 PO; -MEGE40SU PO; -MGCL40 PO; -NMN10 PO; -[UNRECOGNIZED DRUG - OTHER] IV
[2016-12-04 13:40] VITALS: TEMP 36.7; Ht 167.6 cm; Wt 43.0 kg
[2016-12-04 14:19] LABS: BASO % 0.1 %; BASO ABS # 0.01 K/uL (0-0.2); COMPLETE YES; HEMATOCRIT 37.6 % (37-47); IG% 0.5 %; LYMPH % 6.4 %; LYMPH ABS # 0.51 K/uL (1.2-3.4); MEAN CELL VOLUME 93.5 fL (80-100); MEAN CORPUSCULAR HEMOGLOBIN 31.1 pg (25-34); MEAN CORPUSCULAR HGB CONC 33.2 g/dl (32-36); MONO % 2.1 %; NEUT % 90.9 %; PLATELET COUNT 248 K/uL (130-400); RED BLOOD COUNT 4.02 M/uL (4.2-5.4); WHITE BLOOD COUNT 7.98 K/uL (4.8-10.8)
[2016-12-04 14:20] VITALS: O2SAT 100
[2016-12-04] MEDS ORDERED: DXM4 PO (14:23)
[2016-12-04] MEDS ORDERED: MEGE40SU PO (14:23)
--- NOTE | 2016-12-04 14:24 | EMERGENCY ROOM VISIT NOTE ---
History First contact with patient: 13:56 Chief Complaint: SEIZURE Stated Complaint: SEIZURE Nursing Triage Summary: [place] ED [place] to someone there and couldn't think of a word that she wanted to say and then had a sz lasting 2 min. 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 pt states last sz was sunday per her roommate and states that she has been taking her meds. she sees dr jones for CA and dr portillo for neuro no complaints of pain bsg 97 History of Present Illness The patient is a 31 year old female who presents to the Emergency Room with complaints of seizure approximately 1 PM today. Patient arrives via EMS, she is somewhat confused and unable to provide much history. Per EMS, she was at her place of work and talking to a coworker, when she started having trouble with her words and then had a seizure that lasted approximately 2 minutes. The patient's aunt is here with her, and states she has had one other seizure in March of this year. Patient has a history of stage IV melanoma, with metastases to the brain. She is followed by Dr. Barber, Dr. Childers, and Dr. Ha. She takes Keppra for seizure prophylaxis. She denies missing any medication doses recently. She also denies any recent head injuries, falls, or illnesses. She does note that she has been having some visual hallucinations, but cannot articulate how long these have been going on. She denies any headache currently, vision changes, neck pain, chest pain, shortness of breath, nausea or vomiting. Review of Systems Limited review of systems due to patient's altered mental status, some pertinent positives and negatives as per history of present illness. 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 (6) Seizure Surgical Problems: (1) History of radical neck surgery Family History Cancer Social History Smoking Status: Unknown if Ever Smoked Drug Use: none Marital Status: single Occupation Status: employed Current/Historical Medications Scheduled Control Pills ( Control Pills), 1 TAB PO DAILY Budesonide/Formoterol Fumarate (Symbicort 80/4.5 Inhaler), 2 PUFFS INH BID Dexamethasone (Dexamethasone), 4 MG PO BID Dicyclomine Hcl (Bentyl), 1 CAP PO TID Diphenhy/Alum/Mag/Sucralfa (Magic Swizzle - Diphenhy/Alum/Mag/Sucralfa), 1 TSP PO BID Fluconazole (Diflucan), 1 TAB PO DAILY Levetiractam (Levetiracetam), 500 MG PO BID Megestrol Acetate (Megace Oral), 20 ML PO DAILY Omeprazole (Prilosec), 40 MG PO QAM Vemurafenib (Zelboraf), 2 TAB PO BID [Diphenhy/Lidocaine], 10 ML TOP Q5H Scheduled PRN Albuterol Sulfate (Proventil Hfa), 2 PUFF INH Q4 PRN for Cough Loperamide Hcl (Imodium), 2 MG PO QID PRN for Diarrhea Ondansetron Hcl (Zofran), 8 MG PO Q8 PRN for Nausea Triamterene/Hctz (Dyazide 37.5MG/25MG), 1 CAP PO DAILY PRN for Edema Physical Exam Vital Signs Date Time Temp Pulse Resp B/P (MAP) Pulse Ox O2 Delivery O2 Flow Rate FiO2 12/04/16 18:15 55 16 131/87 99 Room Air 12/04/16 17:22 63 16 136/102 99 12/04/16 16:02 68 16 146/99 100 Room Air 12/04/16 14:51 64 18 117/98 100 Room Air 12/04/16 14:20 100 Room Air 12/04/16 13:46 78 12/04/16 13:40 36.7 71 18 147/101 100 Physical Exam CONSTITUTIONAL: No acute distress. Awake, sluggish and slightly confused, oriented to person and time. HEENT: Normocephalic, atraumatic. Right pupil is 4 mm and briskly reactive to light, left pupil is 7 mm and sluggishly reactive to light. EOMI. TMs normal. Pharynx normal. NECK: Supple, full active range of motion without discomfort. RESPIRATORY: Clear to auscultation bilaterally with no wheezing, crackles, rhonchi or stridor. Equal expansion bilaterally. CARDIOVASCULAR: Regular rate and rhythm with no murmurs, rubs or gallops. Normal peripheral perfusion. No edema. GASTROINTESTINAL: Soft, nontender, nondistended. Bowel sounds present in all quadrants. MUSCULOSKELETAL: Full range of motion of all joints without discomfort. INTEGUMENTARY: No rash or other significant dermatologic conditions noted. NEUROLOGIC: Cranial nerves II-XII grossly intact. No facial droop, no pronator drift. Equal strength and sensation in all 4 extremities. Medical Decision & Procedures ER Provider Diagnostic Interpretation: CT SCAN OF THE BRAIN WITHOUT IV CONTRAST CLINICAL HISTORY: Seizure. Change in mental status. Known metastatic melanoma. COMPARISON STUDY: CT of the brain dated 06/14/2016. MRI of the brain dated 11/06/2016. TECHNIQUE: Unenhanced axial CT scan of the brain is performed from the vertex to the skull base. A dose lowering technique was utilized adhering to the principles of ALARA. CT DOSE: 638.56 mGycm FINDINGS: Brain parenchyma: There are numerous hyperdense intracranial lesions identified. These are consistent with the patient's known history of multifocal metastatic melanoma. There has been a marked increase in parenchymal edema involving lesions in the right frontal, right temporal, left frontal lobes as compared to the recent MRI dated 11/06/2016 likely representing interval hemorrhage. Edema is greatest in the right temporal lobe where there is effacement of the overlying cortical sulci. The largest lesion/hemorrhage along the right sylvian fissure on image #10 measures up to 3.0 cm. A lesion in the right posterior frontal lobe on image #13 measures 1.8 cm, and a lesion in the right frontal lobe measures up to 2.0 cm. There there are at least 10 additional smaller lesions scattered throughout the brain parenchyma. Is no midline shift. There is no evidence of acute territorial ischemia by CT criteria. No extra-axial fluid collection is seen. Ventricles, sulci, cisterns: See above. Intracranial vasculature: The visualized intracranial vasculature at the skull base is normal in appearance. Calvarium: Unremarkable. Sinuses and mastoids: Mucosal thickening is seen within the right ethmoid air cells. The remaining visualized paranasal sinuses are clear. The mastoid air cells are well pneumatized. Orbits: The bony orbits are grossly intact. IMPRESSION: 1. There are numerous (greater than 10) hyperdense intracranial lesions as above consistent with the patient's known metastatic melanoma. Many of these lesions are almost certainly hemorrhagic. 2. There has been a significant increase in parenchymal edema involving lesions in the right temporal lobe, the right frontal lobe, and the left frontal lobe when correlated with the 11/06/2016 MRI. This is likely related to interval hemorrhage. The degree of edema is greatest in the right temporal lobe. No midline shift is identified. ----- CHEST ONE VIEW PORTABLE CLINICAL HISTORY: SEIZURE COMPARISON STUDY: 06/14/2016 FINDINGS: The cardiac and mediastinal contours are normal. There is no evidence of focal pulmonary consolidation. There is no evidence of failure. No pleural effusions are visualized. Surgical clips project over the base of the right neck/right upper chest. IMPRESSION: No active disease in the chest. Laboratory Results 12/04/16 13:57 Red Blood Count 4.02, Mean Corpuscular Volume 93.5, Mean Corpuscular Hemoglobin 31.1, Mean Corpuscular Hemoglobin Concent 33.2, Mean Platelet Volume 10.0, Neutrophils (%) (Auto) 90.9, Lymphocytes (%) (Auto) 6.4, Monocytes (%) (Auto) 2.1, Eosinophils (%) (Auto) 0.0, Basophils (%) (Auto) 0.1, Neutrophils # (Auto) 7.25, Lymphocytes # (Auto) 0.51, Monocytes # (Auto) 0.17, Eosinophils # (Auto) 0.00, Basophils # (Auto) 0.01 12/04/16 13:57 Test 12/04/16 13:57 12/04/16 14:45 White Blood Count 7.98 K/uL (4.8-10.8) Red Blood Count 4.02 M/uL (4.2-5.4) Hemoglobin 12.5 g/dL (12.0-16.0) Hematocrit 37.6 % (37-47) Mean Corpuscular Volume 93.5 fL (80-100) Mean Corpuscular Hemoglobin 31.1 pg (25-34) Mean Corpuscular Hemoglobin Concent 33.2 g/dl (32-36) Platelet Count 248 K/uL (130-400) Mean Platelet Volume 10.0 fL (7.4-10.4) Neutrophils (%) (Auto) 90.9 % Lymphocytes (%) (Auto) 6.4 % Monocytes (%) (Auto) 2.1 % Eosinophils (%) (Auto) 0.0 % Basophils (%) (Auto) 0.1 % Neutrophils # (Auto) 7.25 K/uL (1.4-6.5) Lymphocytes # (Auto) 0.51 K/uL (1.2-3.4) Monocytes # (Auto) 0.17 K/uL (0.11-0.59) Eosinophils # (Auto) 0.00 K/uL (0-0.5) Basophils # (Auto) 0.01 K/uL (0-0.2) RDW Standard Deviation 46.0 fL (36.4-46.3) RDW Coefficient of Variation 13.3 % (11.5-14.5) Immature Granulocyte % (Auto) 0.5 % Immature Granulocyte # (Auto) 0.04 K/uL (0.00-0.02) Prothrombin Time 10.0 SECONDS (9.0-12.0) Prothromb Time International Ratio 0.9 (0.9-1.1) Activated Partial Thromboplast Time 22.9 SECONDS (21.0-31.0) Partial Thromboplastin Ratio 0.9 Anion Gap 8.0 mmol/L (3-11) Est Creatinine Clear Calc Drug Dose 55.9 ml/min Estimated GFR () 88.0 Estimated GFR (Non- 75.9 BUN/Creatinine Ratio 8.8 (10-20) Calcium Level 8.7 mg/dl (8.5-10.1) Phosphorus Level 3.3 mg/dl (2.5-4.9) Magnesium Level 2.1 mg/dl (1.8-2.4) Thyroid Stimulating Hormone (TSH) 0.657 uIu/ml (0.300-4.500) Urine Color YELLOW Urine Appearance CLEAR (CLEAR) Urine pH 7.0 (4.5-7.5) Urine Specific [employer] 1.010 (1.000-1.030) Urine Protein NEG (NEG) Urine Glucose (UA) NEG (NEG) Urine Ketones NEG (NEG) Urine Occult Blood TRACE (NEG) Urine Nitrite NEG (NEG) Urine Bilirubin NEG (NEG) Urine Urobilinogen NEG (NEG) Urine Leukocyte Esterase TRACE (NEG) Urine WBC (Auto) 1-5 /hpf (0-5) Urine RBC (Auto) 5-10 /hpf (0-4) Urine Hyaline Casts (Auto) 1-5 /lpf (0-5) Urine Epithelial Cells (Auto) 5-10 /lpf (0-5) Urine Bacteria (Auto) NEG (NEG) Medications Administered Medications (Trade) Dose Ordered Sig/Marge Route Start Time Stop Time Status Last Admin Dose Admin Levetiracetam (Keppra Tab) 500 mg NOW STAT PO 12/04/16 15:48 12/04/16 16:01 DC 12/04/16 16:20 500 MG Dexamethasone Sodium Phosphate (Decadron Inj) 10 mg NOW ONCE IV 12/04/16 16:00 12/04/16 16:01 DC 12/04/16 16:23 10 MG ECG Indication: altered mental status, other (seizure) Rate (beats per minute): 66 Rhythm: normal sinus Findings: no acute ischemic change, no ectopy, other (right axis deviation) Change: no significant change (06/14/2016) Medical Decision CC: Patient presenting with complaint of seizure Interpretation of Labs: No leukocytosis, no anemia, no significant electrolyte abnormality, normal renal function. UA negative. Differential Diagnosis: Includes, but not limited to seizure, intracranial hemorrhage, mass effect, electrolyte abnormality, dehydration, infection including pneumonia, UTI, subtherapeutic drug levels, multiple others. Medication Reconciliation: I attest that I have personally reviewed the patient' s current medication list. Vital signs review: I reviewed the patient's vital signs and interpret them as follows: T: Afebrile; BP: Hypertensive; HR: Within normal limits; RR: Within normal limits; Pulse Ox: Within normal limits on room air. Summary: Patient was evaluated at bedside, history of physical exam performed. Patient is awake, but slightly confused and sluggish in response, oriented to person and time, unable to account for the events of today. On neuro exam, the left pupil is dilated and sluggish to respond compared to the right, patient is unsure if she has a history of this or not, but her aunt does not think so. No other focal deficits noted on neurologic exam. Orders were placed at bedside for infection workup including labs, UA, chest x- ray, and CT of the head to evaluate for intracranial hemorrhage/mass effect. Patient discussed with Dr. Canchola, who agrees with my assessment and plan. Labs reviewed as above, no acute abnormalities. No UTI. EKG shows NSR. Chest x-ray unremarkable with no evidence of pneumonia. CT imaging shows interval development of significantly increasing parenchymal edema when compared to MRI from 9/18, with multiple hemorrhagic metastatic lesions. Dr. Canchola discussed the need for transfer with the patient, her mother (by phone) , and her aunt. The patient prefers to be sent to [facility]. She has been seen by a neurosurgeon in [place] in the past, but she states she does not want to go back there. I spoke on the phone with Dr. Martinez, [facility] neurosurgery, and discussed CT imaging results and patient's exam findings with him. He does not feel the patient warrants urgent surgical management for this, and recommends involving oncology in the discussion for the admission. I spoke on the phone with Dr. Mott, [facility] oncology, who agrees to accept the patient for admission. Patient was given her p.m. dose of oral Keppra and IV dose of Decadron prior to transfer per recommendation of Dr. Mott. Patient reassessed multiple times throughout ED stay, altered mental status improving, improved to a GCS of 15 and now fully oriented. Her left pupil remains dilated and sluggish to respond. Patient stable at time of transfer. Head Trauma GCS Score: 14 GCS 14 on initial evaluation. Repeat exams, patient improved to GCS of 15. Medication Reconcilliation Current Medication List: was personally reviewed by me Blood Pressure Screening Patient's blood pressure: Elevated blood pressure Blood pressure disposition: Elevated BP felt to be situational Impression Primary Impression: Metastatic melanoma of brain Additional Impression: Seizure Departure Information Dispostion Transfer Acute Care Facility Condition FAIR Referrals Danielito Jones M.D. (PCP) Patient Instructions My [facility] Problem Qualifiers
[2016-12-04 14:34] LABS: BUN/CREATININE RATIO 8.8 (10-20); CALCIUM 8.7 mg/dl (8.5-10.1); CREATININE 0.99 mg/dl (0.60-1.20); MAGNESIUM 2.1 mg/dl (1.8-2.4); POTASSIUM 4.7 mmol/L (3.5-5.1)
[2016-12-04 14:37] LABS: INR 0.9 (0.9-1.1); PARTIAL THROMBOPLASTIN RATIO 0.9
--- NOTE | 2016-12-04 14:40 | DIAGNOSTIC IMAGING REPORT ---
CT SCAN OF THE BRAIN WITHOUT IV CONTRAST CLINICAL HISTORY: Seizure. Change in mental status. Known metastatic melanoma. COMPARISON STUDY: CT of the brain dated 06/14/2016. MRI of the brain dated 11/06/2016. TECHNIQUE: Unenhanced axial CT scan of the brain is performed from the vertex to the skull base. A dose lowering technique was utilized adhering to the principles of ALARA. CT DOSE: 638.56 mGycm FINDINGS: Brain parenchyma: There are numerous hyperdense intracranial lesions identified. These are consistent with the patient's known history of multifocal metastatic melanoma. There has been a marked increase in parenchymal edema involving lesions in the right frontal, right temporal, left frontal lobes as compared to the recent MRI dated 11/06/2016 likely representing interval hemorrhage. Edema is greatest in the right temporal lobe where there is effacement of the overlying cortical sulci. The largest lesion/hemorrhage along the right sylvian fissure on image #10 measures up to 3.0 cm. A lesion in the right posterior frontal lobe on image #13 measures 1.8 cm, and a lesion in the right frontal lobe measures up to 2.0 cm. There there are at least 10 additional smaller lesions scattered throughout the brain parenchyma. Is no midline shift. There is no evidence of acute territorial ischemia by CT criteria. No extra-axial fluid collection is seen. Ventricles, sulci, cisterns: See above. Intracranial vasculature: The visualized intracranial vasculature at the skull base is normal in appearance. Calvarium: Unremarkable. Sinuses and mastoids: Mucosal thickening is seen within the right ethmoid air cells. The remaining visualized paranasal sinuses are clear. The mastoid air cells are well pneumatized. Orbits: The bony orbits are grossly intact. IMPRESSION: 1. There are numerous (greater than 10) hyperdense intracranial lesions as above consistent with the patient's known metastatic melanoma. Many of these lesions are almost certainly hemorrhagic. 2. There has been a significant increase in parenchymal edema involving lesions in the right temporal lobe, the right frontal lobe, and the left frontal lobe when correlated with the 11/06/2016 MRI. This is likely related to interval hemorrhage. The degree of edema is greatest in the right temporal lobe. No midline shift is identified. Electronically signed by: Wesley Eller M.D. 12/04/2016 2:39 PM Dictated Date/Time: 12/04/2016 2:33 PM
[2016-12-04 14:44] LABS: PHOSPHORUS 3.3 mg/dl (2.5-4.9); THYROID STIMULATING HORMONE 0.657 uIu/ml (0.300-4.500)
--- NOTE | 2016-12-04 14:54 | DIAGNOSTIC IMAGING REPORT ---
CHEST ONE VIEW PORTABLE CLINICAL HISTORY: SEIZURE COMPARISON STUDY: 06/14/2016 FINDINGS: The cardiac and mediastinal contours are normal. There is no evidence of focal pulmonary consolidation. There is no evidence of failure. No pleural effusions are visualized.[ Surgical clips project over the base of the right neck/right upper chest. IMPRESSION: No active disease in the chest. Electronically signed by: Mike Sim M.D. 12/04/2016 2:52 PM Dictated Date/Time: 12/04/2016 2:51 PM
[2016-12-04 15:16] LABS: URINE APPEARANCE CLEAR (CLEAR); URINE BILIRUBIN NEG (NEG); URINE COLOR YELLOW; URINE NITRITE NEG (NEG); UROBILINOGEN NEG (NEG)
[2016-12-04 15:25] LABS: MANUAL MICROSCOPIC REQUIRED? NO; REVIEW REQ? NO
[2016-12-04] MEDS ORDERED: LEVETIRACETAM 500 MG TAB PO STA (15:48)
[2016-12-04] MEDS ORDERED: DEXAMETHASONE SOD INJ 10 MG/ML VIAL IV ONE (16:00)
[2016-12-04 18:15] VITALS: BP 131/87; PULSE 55; O2SAT 99
--- NOTE | 2016-12-05 12:04 | EMERGENCY ROOM VISIT NOTE ---
ED Visit Note First contact with patient: 13:56 I did evaluate and examine this patient myself. I did guide management for the patient. I agree with the APC's assessment as discussed. Please see the APC's dictation for further details. I did independently review the CT scan and blood work. She does have multiple metastatic lesions with surrounding hemorrhage and edema. The transfer to facility with the surgeon. The patient and her mother preferred to [facility]. Arrangements were made for transfer to [facility]. She was transferred via ALS ambulance.
== END 2016-12-04 19:02 | disposition short-term general hospital (02) ==
LOC: EDBD 13:31 → C.EDC 13:32
DX: C43.9 Malignant melanoma of skin, unspecified (principal); C79.31 Secondary malignant neoplasm of brain; R56.9 Unspecified convulsions; J45.909 Unspecified asthma, uncomplicated; Z85.830 Personal history of malignant neoplasm of bone; Z85.05 Personal history of malignant neoplasm of liver; Z85.89 Personal history of malignant neoplasm of other organs and systems; Z98.890 Other specified postprocedural states; Z79.899 Other long term (current) drug therapy

== ENCOUNTER 2016-12-24 17:48 | Inpatient (IN) | payer BC ==
[~2016-12-24] VITALS: Ht 172.7 cm; Wt 42.5 kg
[~2016-12-24 17:48] MED LIST changes: -CLOT10TR2 MT; -DIPH1CRE TOP; +DXM4 PO; -LEVE500T13 PO; +MAGIC1 MT; -MAGIC1 PO; +MEGE40SU PO; -MEGE40TA13 PO; -MRN/25 PO; -OXYC1TAB3 PO; -PRED20TA PO; -[UNRECOGNIZED DRUG - CODE] PO
[2016-12-24] MEDS ORDERED: VECURONIUM BROMIDE 10 MG VIAL ONE (17:54)
[2016-12-24] MEDS ORDERED: PROPOFOL IV EMULSION 10 MG/ML 100 ML VIAL IV ONE (17:55)
[2016-12-24] MEDS ORDERED: MIDAZOLAM HCL 5 MG/ML 2ML VIAL ONE (17:58)
[2016-12-24] MEDS ORDERED: VECURONIUM BROMIDE 10 MG VIAL IV STA (17:58)
[2016-12-24] MEDS ORDERED: PROPOFOL IV EMULSION 10 MG/ML 100 ML VIAL IV STA ×2 (18:00→21:39)
[2016-12-24] MEDS ORDERED: MIDAZOLAM HCL 1 MG/ML 2ML VIAL IV ONE (18:00)
[2016-12-24] MEDS ORDERED: LEVETIRACETAM IV 1,000 MG in DEXTROSE 5% 100ML 100 ML IV ONE (18:15)
[2016-12-24] MEDS ORDERED: DEXAMETHASONE INJ 10 MG in SYRINGE 0 ML IV ONE (18:15)
[2016-12-24 18:17] LABS: HEMATOCRIT 40.1 % (37-47); MEAN CELL VOLUME 94.4 fL (80-100); MEAN CORPUSCULAR HEMOGLOBIN 31.8 pg (25-34); MEAN CORPUSCULAR HGB CONC 33.7 g/dl (32-36); MEAN PLATELET VOLUME 10.7 fL (7.4-10.4); PLATELET COUNT 297 K/uL (130-400); RED BLOOD COUNT 4.25 M/uL (4.2-5.4); WHITE BLOOD COUNT 22.85 K/uL (4.8-10.8)
[2016-12-24 18:22] LABS: ISTAT CREATININE 1.4 mg/dl (0.6-1.3); ISTAT HEMOGLOBIN 13.9 g/dl (12.0-16.0); ISTAT IONIZED CALCIUM 1.09 mmol/l (1.12-1.32)
[2016-12-24] MEDS ORDERED: CEFEPIME IV 1,000 MG in DEXTROSE 5% 100ML 100 ML IV STA (18:22)
--- NOTE | 2016-12-24 18:25 | DIAGNOSTIC IMAGING REPORT ---
SINGLE VIEW CHEST CLINICAL HISTORY: Change in mental status. Intubation. FINDINGS: An AP, portable, supine chest radiograph is compared to study dated 12/04/2016. The examination is degraded by portable technique and patient rotation. An endotracheal tube has been placed. The tip projects 4 cm above the gera. The cardiomediastinal silhouette is unremarkable. The lungs and pleural spaces are clear. No pneumothorax is seen. The bony thorax is grossly intact. IMPRESSION: 1. An endotracheal tube has been placed and the tip projects 4 cm above the gera. 2. The lungs are clear. Electronically signed by: Wesley Eller M.D. 12/24/2016 6:23 PM Dictated Date/Time: 12/24/2016 6:22 PM
[2016-12-24 18:26] LABS: ISTAT ARTERIAL BLOOD GAS HCO3 19 meq/L (19-24); ISTAT ARTERIAL BLOOD GAS PCO2 38 mmHg (35-46); ISTAT ARTERIAL BLOOD GAS PO2 > 420 mmHg (80-95); ISTAT ARTERIAL BLOOD GAS pH 7.29 (7.35-7.45); ISTAT CARBON DIOXIDE 20 mEq/l (24-31); ISTAT HEMATOCRIT 40 % (37-47); ISTAT HEMOGLOBIN 13.6 g/dl (12.0-16.0); ISTAT SODIUM 134 mEq/L (135-144)
[2016-12-24 18:27] LABS: INR 0.9 (0.9-1.1); PARTIAL THROMBOPLASTIN RATIO 0.8; PROTHROMBIN TIME (PATIENT) 9.6 SECONDS (9.0-12.0)
[2016-12-24 18:42] LABS: BASO % 0.1 %; BASO ABS # 0.02 K/uL (0-0.2); COMPLETE YES; IG% 1.8 %; LYMPH % 1.1 %; LYMPH ABS # 0.24 K/uL (1.2-3.4); MONO % 2.5 %; NEUT % 94.5 %
[2016-12-24] MEDS ORDERED: CEFEPIME IV 1,000 MG in SYRINGE 0 ML IV ONE (18:45)
[2016-12-24 18:47] LABS: ALKALINE PHOSPHATASE 188 U/L (45-117); ALT/SGPT 58 U/L (12-78); AST/SGOT 126 U/L (15-37); BLOOD UREA NITROGEN 20 mg/dl (7-18); BUN/CREATININE RATIO 11.8 (10-20); CALCIUM 8.7 mg/dl (8.5-10.1); CARBON DIOXIDE 13 mmol/L (21-32); CHLORIDE 98 mmol/L (98-107); CREATININE 1.71 mg/dl (0.60-1.20); GLUCOSE 354 mg/dl (70-99); POTASSIUM 3.8 mmol/L (3.5-5.1); SODIUM 133 mmol/L (136-145)
--- NOTE | 2016-12-24 18:59 | DIAGNOSTIC IMAGING REPORT ---
CT SCAN OF THE BRAIN WITHOUT IV CONTRAST CLINICAL HISTORY: Unresponsive. Known metastatic melanoma. COMPARISON STUDY: CT of the brain dated 12/04/2016 and 06/14/2016. MRI of the brain dated 11/06/2016. TECHNIQUE: Unenhanced axial CT scan of the brain is performed from the vertex to the skull base. A dose lowering technique was utilized adhering to the principles of ALARA. FINDINGS: Brain parenchyma: Again seen are numerous hyperdense intracranial lesions consistent with the patient's known history of multifocal metastatic melanoma. There has been a marked increase in parenchymal edema involving lesions in the right frontal, left frontal, and left temporal lobes as compared to the recent CT dated 12/04/2016 with significant increase in hemorrhage as compared to that time. There is significant sulcal effacement, greatest in the right temporal, right frontal, and left temporal regions. No midline shift is seen. The largest lesion/hemorrhage along the right sylvian fissure on image #10 measures up to 4.5 cm (previously measured 3.0 cm.) A lesion in the right posterior frontal lobe on image #11 measures 2.2 cm (previously measured 1.8 cm), and a lesion in the anterior right frontal lobe on image #15 measures up to 2.5 cm (previously measured 2.0 cm). There are multiple new foci of hemorrhage identified. The largest are in the left temporal lobe seen on image #9 measuring 14 mm. There are greater than 10 additional smaller hemorrhagic lesions scattered throughout the brain parenchyma. Subarachnoid hemorrhage is identified and new from previous. This is located along the right sylvian fissure extending towards the supersellar cistern on image #8. Small foci of subarachnoid hemorrhage are seen along the right convexity (right posterior parietal lobe on images #20 and #22, right frontal sulci image #19). There is no evidence of acute territorial ischemia by CT criteria. No extra-axial fluid collection is seen. Ventricles, sulci, cisterns: See above. No intraventricular hemorrhage is identified. Intracranial vasculature: The visualized intracranial vasculature at the skull base is normal in appearance. Calvarium: Unremarkable. Sinuses and mastoids: Mucosal thickening is seen within the right ethmoid air cells. The remaining visualized paranasal sinuses are clear. The mastoid air cells are well pneumatized. Orbits: The bony orbits are grossly intact. IMPRESSION: 1. Significant progression of intracranial hemorrhagic metastatic disease as compared to 12/04/2016 with significant increase in associated edema. There is no midline shift or tonsillar herniation. 2. Foci of subarachnoid hemorrhage are identified along the right convexity and in the right sylvian fissure. This is new from previous. Findings were discussed with Dr. Hua in the emergency department at the time of interpretation. Electronically signed by: Wesley Eller M.D. 12/24/2016 6:58 PM Dictated Date/Time: 12/24/2016 6:46 PM
[2016-12-24 19:02] LABS: BETA-HYDROXYBUTYRATE 3.25 mg/dL (0.2-2.81)
--- NOTE | 2016-12-24 19:03 | DIAGNOSTIC IMAGING REPORT ---
CT SCAN OF THE CERVICAL SPINE CLINICAL HISTORY: Unresponsive. History of metastatic melanoma. COMPARISON STUDY: No priors. TECHNIQUE: CT scan of the cervical spine is performed from the skull base to the upper thoracic spine. Images are reviewed in the axial, sagittal, and coronal planes. IV contrast was not administered for this examination. A dose lowering technique was utilized adhering to the principles of ALARA. FINDINGS: Skeletal structures: The skeletal structures are well mineralized. There is no evidence of fracture or subluxation involving the cervical spine. Vertebral body height and alignment are maintained. There is straightening of the cervical lordosis with reversal centered at C4-C5. The odontoid process and lateral masses are intact. The atlantoaxial articulation is preserved. The spinous processes appear intact. There is sclerosis of the C6 vertebral body consistent with metastatic disease. A sclerotic lesion is also seen in the posterior body of T1. Intervertebral discs: The disc spaces are well maintained. Central canal: Widely patent. Soft tissues: The prevertebral and paraspinous soft tissues are within normal limits. Calvarium: The visualized calvarium at the skull base appears intact. Brain parenchyma: See report of CT scan of the brain performed concurrently for intracranial findings.. Sinuses and mastoids: The visualized paranasal sinuses are clear. The mastoid air cells are well pneumatized. Lung apices: Endotracheal tube is in place. Apical lung parenchyma is clear as visualized. IMPRESSION: 1. There is no evidence of fracture or subluxation involving the cervical spine. 2. There are sclerotic lesions in the bodies of C6 and T1 consistent with bony metastatic disease. Electronically signed by: Wesley Eller M.D. 12/24/2016 7:02 PM Dictated Date/Time: 12/24/2016 6:58 PM
[2016-12-24] MEDS ORDERED: LEVE750T PO (19:39)
[2016-12-24] MEDS ORDERED: [UNRECOGNIZED DRUG - CODE] PO (19:48)
[2016-12-24] MEDS ORDERED: OXYC1TAB3 PO (19:48)
[2016-12-24] MEDS ORDERED: MGCL40 PO (19:48)
[2016-12-24 20:01] LABS: URINE APPEARANCE CLEAR (CLEAR); URINE BILIRUBIN NEG (NEG); URINE COLOR YELLOW; URINE EPITHELIAL CELL AUTO >30 /lpf (0-5); URINE NITRITE NEG (NEG); URINE SPECIFIC GRAVITY 1.024 (1.000-1.030); UROBILINOGEN NEG (NEG); ZZURINE CULT IF INDIC CATH NO
[2016-12-24 20:07] LABS: MANUAL MICROSCOPIC REQUIRED? NO; REVIEW REQ? YES
[2016-12-24 21:10] LABS: URINE PATH CASTS 5-10 GRANULAR CASTS /lpf (0)
[2016-12-24] MEDS ORDERED: LORAZEPAM 2 MG/ML 1 ML VIAL IV PRN (21:45)
[2016-12-24] MEDS ORDERED: FENTANYL CITRATE INJ 50 MCG/1 ML 2 ML VIAL IV PRN (22:15)
[2016-12-24 22:20] VITALS: BP 134/99; PULSE 64; TEMP 37.1; Ht 172.7 cm; Wt 42.5 kg
[2016-12-24 22:22] VITALS: PULSE 66; O2SAT 100
[2016-12-24 22:24] VITALS: BP 134/99; PULSE 68; TEMP 37.2; O2SAT 100
[2016-12-24] MEDS ORDERED: PROPOFOL IV EMULSION 10 MG/ML 100 ML VIAL IV PRN (22:30)
[2016-12-24 23:00] VITALS: BP 110/84; PULSE 64; O2SAT 100
--- NOTE | 2016-12-24 23:01 | History and Physical ---
History & Physical Date & Time of Service: Dec 24, 2016 at 23:01 Chief Complaint: Intracranial Hemorrhage,Metastatic Melanoma--Brain Primary Care Physician: Danielito Hernandez M.D. 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 She reportedly was ashen johnson and not breathing. When EMS saw the patient, she was given Narcan with no response, then was given etomidate and intubated prior to arrival in the ED by EMS. The history of present illness is limited due to the patient's altered mental state. 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 Status: Chronic Surgical Problems: (1) History of radical neck surgery Status: Chronic Family History Cancer Social History Smoking Status: Unknown if Ever Smoked Smokeless Tobacco Use: No Alcohol Use: none Drug Use: none Marital Status: single Housing status: lives with family Occupational Status: employed Immunizations History of Influenza Vaccine: Unknown History of Tetanus Vaccine?: Unknown History of Pneumococcal: Unknown History of Hepatitis B Vaccine: Unknown Multi-Drug Resistant Organisms History of MDRO: No Allergies Coded Allergies: Penicillins (Verified Allergy, Unknown, unknown, 12/24/16) Home Medications Scheduled Control Pills ( Control Pills), 1 TAB PO DAILY Budesonide/Formoterol Fumarate (Symbicort 80/4.5 Inhaler), 2 PUFFS INH UD Cobimetinib Fumarate (Cotellic), 20 MG PO DAILY Dexamethasone (Dexamethasone), 4 MG PO BID Dicyclomine Hcl (Bentyl), 1 CAP PO TID Diphenhy/Alum/Mag/Sucralfa (Magic Swizzle - Diphenhy/Alum/Mag/Sucralfa), 30 ML MT BID Fluconazole (Diflucan), 1 TAB PO DAILY Levetiracetam (Keppra), 750 MG PO BID Megestrol Acetate (Megestrol Acetate), 20 MG PO DAILY Omeprazole (Prilosec), 40 MG PO QAM Vemurafenib (Zelboraf), 2 TAB PO BID [Diphenhy/Lidocaine], 10 ML TOP UD Scheduled PRN Albuterol Sulfate (Proventil Hfa), 2 PUFF INH Q4 PRN for Cough Loperamide Hcl (Imodium), 2 MG PO QID PRN for Diarrhea Ondansetron Hcl (Zofran), 8 MG PO Q8 PRN for Nausea Oxycodone Immediate Rel Tab (Roxicodone Ir), 5 MG PO Q4H PRN for Pain or Fever Triamterene/Hctz (Dyazide 37.5MG/25MG), 1 CAP PO DAILY PRN for Edema Review of Systems Review of systems is limited due to the patient's altered mental state. Physical Exam Vital Signs Date Time Temp Pulse Resp B/P (MAP) Pulse Ox O2 Delivery O2 Flow Rate FiO2 12/24/16 22:24 40 12/24/16 21:30 129/95 12/24/16 21:28 74 20 100 Mechanical Ventilator 12/24/16 21:15 132/94 12/24/16 21:01 138/107 12/24/16 20:58 74 14 100 Mechanical Ventilator 12/24/16 20:53 82 15 100 Mechanical Ventilator 12/24/16 20:45 133/96 12/24/16 20:30 129/99 12/24/16 20:23 74 13 100 Mechanical Ventilator 12/24/16 20:15 137/103 12/24/16 20:00 143/104 12/24/16 19:53 85 15 100 Mechanical Ventilator 12/24/16 19:48 94 18 97 Mechanical Ventilator 12/24/16 19:45 148/107 12/24/16 19:30 155/110 12/24/16 19:25 152/115 12/24/16 19:20 144/107 12/24/16 19:18 91 18 100 Mechanical Ventilator 12/24/16 19:15 144/103 12/24/16 19:10 136/103 12/24/16 19:05 142/99 12/24/16 19:00 141/102 12/24/16 18:55 138/101 12/24/16 18:50 137/84 12/24/16 18:48 81 18 100 Mechanical Ventilator 12/24/16 18:43 79 12 100 Mechanical Ventilator 12/24/16 18:40 134/91 12/24/16 18:38 84 13 100 Mechanical Ventilator 12/24/16 18:33 84 12 100 Mechanical Ventilator 12/24/16 18:32 100 12/24/16 18:30 125/89 12/24/16 18:28 88 17 99 Mechanical Ventilator 12/24/16 18:10 137/95 12/24/16 18:08 92 12 99 Mechanical Ventilator 12/24/16 18:05 135/93 12/24/16 18:03 97 12 99 Mechanical Ventilator 12/24/16 18:02 97 12/24/16 18:02 150/103 12/24/16 17:58 116 18 98 Mechanical Ventilator 12/24/16 17:54 149/91 12/24/16 17:53 119 20 88 Mechanical Ventilator 12/24/16 17:50 37.0 110 12 149/91 92 Mechanical Ventilator The patient is nonresponsive, intubated on the ventilator when seen in the emergency department. HEENT--PERRL, mucous membranes and oropharynx dry. Neck--no JVD or bruits, thyroid normal, trachea midline, no adenopathy. Heart--normal S1 and S2. no murmurs, rubs or gallops. Lungs--clear bilaterally. Abdomen--normal bowel sounds and soft, nondistended. Extremities--no cyanosis, clubbing or edema. There are good distal pulses b/l. Dermatologic--normal skin turgor, normal color, no rash. Neurologic--limited exam Rheumatologic--limited exam Psychiatric--limited exam Diagnostics Laboratory Results Results Past 24 Hours Test 12/24/16 00:00 12/24/16 17:50 12/24/16 18:03 12/24/16 18:07 Range/Units Urine Color YELLOW Urine Appearance CLEAR CLEAR Urine pH 6.0 4.5-7.5 Urine Specific [place] 1.024 1.000-1.030 Urine Protein 2+ NEG Urine Glucose (UA) 3+ NEG Urine Ketones NEG NEG Urine Occult Blood 1+ NEG Urine Nitrite NEG NEG Urine Bilirubin NEG NEG Urine Urobilinogen NEG NEG Urine Leukocyte Esterase NEG NEG Urine WBC (Auto) 1-5 0-5 /hpf Urine RBC (Auto) 5-10 0-4 /hpf Urine Hyaline Casts (Auto) 1-5 0-5 /lpf Urine Epithelial Cells (Auto) >30 0-5 /lpf Urine Bacteria (Auto) NEG NEG Urine Renal Epithelial Cells 0-5 0-5 /lpf Urine Pathogenic Casts 5-10 GRANULAR CASTS 0 /lpf White Blood Count 22.85 4.8-10.8 K/uL Red Blood Count 4.25 4.2-5.4 M/uL Hemoglobin 13.5 12.0-16.0 g/dL Hematocrit 40.1 37-47 % Mean Corpuscular Volume 94.4 80-100 fL Mean Corpuscular Hemoglobin 31.8 25-34 pg Mean Corpuscular Hemoglobin Concent 33.7 32-36 g/dl Platelet Count 297 130-400 K/uL Mean Platelet Volume 10.7 7.4-10.4 fL Neutrophils (%) (Auto) 94.5 % Lymphocytes (%) (Auto) 1.1 % Monocytes (%) (Auto) 2.5 % Eosinophils (%) (Auto) 0.0 % Basophils (%) (Auto) 0.1 % Neutrophils # (Auto) 21.61 1.4-6.5 K/uL Lymphocytes # (Auto) 0.24 1.2-3.4 K/uL Monocytes # (Auto) 0.57 0.11-0.59 K/uL Eosinophils # (Auto) 0.00 0-0.5 K/uL Basophils # (Auto) 0.02 0-0.2 K/uL RDW Standard Deviation 44.7 36.4-46.3 fL RDW Coefficient of Variation 12.9 11.5-14.5 % Immature Granulocyte % (Auto) 1.8 % Immature Granulocyte # (Auto) 0.41 0.00-0.02 K/uL Prothrombin Time 9.6 9.0-12.0 SECONDS Prothromb Time International Ratio 0.9 0.9-1.1 Activated Partial Thromboplast Time 20.1 21.0-31.0 SECONDS Partial Thromboplastin Ratio 0.8 Sodium Level 133 136-145 mmol/L Potassium Level 3.8 3.5-5.1 mmol/L Chloride Level 98 98-107 mmol/L Carbon Dioxide Level 13 21-32 mmol/L Anion Gap 22.0 22.0 16-25 mmol/L Blood Urea Nitrogen 20 7-18 mg/dl Creatinine 1.71 0.60-1.20 mg/dl Estimated GFR () 45.4 Estimated GFR (Non- 39.2 BUN/Creatinine Ratio 11.8 10-20 Random Glucose 354 70-99 mg/dl Calcium Level 8.7 8.5-10.1 mg/dl Total Bilirubin 0.5 0.2-1 mg/dl Direct Bilirubin 0-0.2 mg/dl Aspartate Amino Transf (AST/SGOT) 126 15-37 U/L Alanine Aminotransferase (ALT/SGPT) 58 12-78 U/L Alkaline Phosphatase 188 45-117 U/L Troponin I 0.544 0-0.045 ng/ml Total Protein 7.1 6.4-8.2 gm/dl Albumin 3.6 3.4-5.0 gm/dl Beta-Hydroxybutyric Acid 3.25 0.2-2.81 mg/dL Chemistry Specimen Hemolysis Bedside Hemoglobin 13.9 12.0-16.0 g/dl Bedside Hematocrit 41 37-47 % Bedside Sodium 133 135-144 mEq/L Bedside Potassium 4.0 3.3-5.0 mEq/L Bedside Chloride 100 101-112 mEq/L Bedside Total CO2 16 24-31 mEq/l Bedside Blood Urea Nitrogen 20 7-18 mg/dl Bedside Creatinine 1.4 0.6-1.3 mg/dl Bedside Glucose (other) 355 70-99 mg/dl Bedside Ionized Calcium (Fercho) 1.09 1.12-1.32 mmol/l Bedside Lactic Acid Venous 10.65 0.90-1.70 mmol/L Test 12/24/16 18:12 Range/Units Bedside Hemoglobin 13.6 12.0-16.0 g/dl Bedside Hematocrit 40 37-47 % Bedside Blood Gas pH (LAB) 7.29 7.35-7.45 Bedside Blood Gas pCO2 (LAB) 38 35-46 mmHg Bedside Blood Gas pO2 (LAB) > 420 80-95 mmHg Bedside Blood Gas HCO3 (LAB) 19 19-24 meq/L Bedside Blood Gas Total CO2 20 24-31 mEq/l Bedside Blood Gas Base Excess (LAB) -8.0 -9-1.8 meq/L Bedside Blood Gas O2 Saturation 100.0 90-95 % Bedside Sodium 134 135-144 mEq/L Bedside Potassium 3.2 3.3-5.0 mEq/L Microbiology Results 12/24/16 MRSA DNA Surveillance Screen, Received Pending Diagnostic Radiology Patient Name: JOHNNIE Unit Number: [id number] Dictated: 12/24/161821 Transcribed: 12/24/161821 EV Printed Date/Time: [~ rep prt dt]/[~ rep prt tm] [~ rep ct labl] - [~ rep ct ivnm] [facility] [place] [address] Dictated: 12/24/161821 Transcribed: 12/24/161821 EV Printed Date/Time: [~ rep prt dt]/[~ rep prt tm] [~ rep ct labl] - [~ rep ct ivnm] [~ rep ct add3]] SINGLE VIEW CHEST CLINICAL HISTORY: Change in mental status. Intubation. FINDINGS: An AP, portable, supine chest radiograph is compared to study dated 12/04/2016. The examination is degraded by portable technique and patient rotation. An endotracheal tube has been placed. The tip projects 4 cm above the gera. The cardiomediastinal silhouette is unremarkable. The lungs and pleural spaces are clear. No pneumothorax is seen. The bony thorax is grossly intact. IMPRESSION: 1. An endotracheal tube has been placed and the tip projects 4 cm above the gera. 2. The lungs are clear. Electronically signed by: Wesley Eller M.D. 12/24/2016 6:23 PM Dictated Date/Time: 12/24/2016 6:22 PM The status of this report is Signed. Draft = Not yet reviewed or approved by Radiologist. Signed = Reviewed and approved by Radiologist. <AttendingPhy></AttendingPhy> <FamilyPhy>Danielito Hernandez M.D.</FamilyPhy> < PrimaryPhy>Danielito Hernandez M.D.</PrimaryPhy> <UnitNumber>[id number]</UnitNumber > <VisitNumber>[id number]</VisitNumber> <PatientName>JOHNNIEMay</ PatientName> <DateOfBirth>1985</DateOfBirth> <Location>[facility]</Location> < ServiceDate>12/24/16</ServiceDate> <MNE>ESINDI</MNE> <OrderingPhy>Louis Hua DO</OrderingPhy> <OrderingPhyMNE>f rep ord dr mnjosué</OrderingPhyMNE> < DictatingPhyMNE>f rep dict dr kim</DictatingPhyMNE> <CCListMNE>f rep ct mne</ CCListMNE> <AdmittingPhyMNE>f pt admit dr kim</AdmittingPhyMNE> <AttendingPhyMNE >f pt attend dr kim</AttendingPhyMNE> <ConsultingPhyMNE>f pt consult dr kim</ConsultingPhyMNE> <FamilyPhyMNE>f pt fam dr kim</FamilyPhyMNE> <OtherPhyMNE>f pt other dr kim</OtherPhyMNE> < PrimaryPhyMNE>f pt prim care dr kim</PrimaryPhyMNE> <ReferringPhyMNE>f pt referring dr kim</ReferringPhyMNE> Patient Name: COTY BLAIR Unit Number: [id number] Dictated: 12/24/161845 Transcribed: 12/24/161845 EV Printed Date/Time: [~ rep prt dt]/[~ rep prt tm] [~ rep ct labl] - [~ rep ct ivnm] [facility] Radiology Department [place] [id number] Dictated: 12/24/161845 Transcribed: 12/24/161845 EV Printed Date/Time: [~ rep prt dt]/[~ rep prt tm] [~ rep ct labl] - [~ rep ct ivnm] [~ rep ct add3]] CT SCAN OF THE BRAIN WITHOUT IV CONTRAST CLINICAL HISTORY: Unresponsive. Known metastatic melanoma. COMPARISON STUDY: CT of the brain dated 12/04/2016 and 06/14/2016. MRI of the brain dated 11/06/2016. TECHNIQUE: Unenhanced axial CT scan of the brain is performed from the vertex to the skull base. A dose lowering technique was utilized adhering to the principles of ALARA. FINDINGS: Brain parenchyma: Again seen are numerous hyperdense intracranial lesions consistent with the patient's known history of multifocal metastatic melanoma. There has been a marked increase in parenchymal edema involving lesions in the right frontal, left frontal, and left temporal lobes as compared to the recent CT dated 12/04/2016 with significant increase in hemorrhage as compared to that time. There is significant sulcal effacement, greatest in the right temporal, right frontal, and left temporal regions. No midline shift is seen. The largest lesion/hemorrhage along the right sylvian fissure on image #10 measures up to 4.5 cm (previously measured 3.0 cm.) A lesion in the right posterior frontal lobe on image #11 measures 2.2 cm (previously measured 1.8 cm), and a lesion in the anterior right frontal lobe on image #15 measures up to 2.5 cm (previously measured 2.0 cm). There are multiple new foci of hemorrhage identified. The largest are in the left temporal lobe seen on image #9 measuring 14 mm. There are greater than 10 additional smaller hemorrhagic lesions scattered throughout the brain parenchyma. Subarachnoid hemorrhage is identified and new from previous. This is located along the right sylvian fissure extending towards the supersellar cistern on image #8. Small foci of subarachnoid hemorrhage are seen along the right convexity (right posterior parietal lobe on images #20 and #22, right frontal sulci image #19). There is no evidence of acute territorial ischemia by CT criteria. No extra-axial fluid collection is seen. Ventricles, sulci, cisterns: See above. No intraventricular hemorrhage is identified. Intracranial vasculature: The visualized intracranial vasculature at the skull base is normal in appearance. Calvarium: Unremarkable. Sinuses and mastoids: Mucosal thickening is seen within the right ethmoid air cells. The remaining visualized paranasal sinuses are clear. The mastoid air cells are well pneumatized. Orbits: The bony orbits are grossly intact. IMPRESSION: 1. Significant progression of intracranial hemorrhagic metastatic disease as compared to 12/04/2016 with significant increase in associated edema. There is no midline shift or tonsillar herniation. 2. Foci of subarachnoid hemorrhage are identified along the right convexity and in the right sylvian fissure. This is new from previous. Findings were discussed with Dr. Hua in the emergency department at the time of interpretation. Electronically signed by: Wesley Eller M.D. 12/24/2016 6:58 PM Dictated Date/Time: 12/24/2016 6:46 PM The status of this report is Signed. Draft = Not yet reviewed or approved by Radiologist. Signed = Reviewed and approved by Radiologist. <AttendingPhy></AttendingPhy> <FamilyPhy>Danielito Hernandez M.D.</FamilyPhy> < PrimaryPhy>Danielito Hernandez M.D.</PrimaryPhy> <UnitNumber>[id number]</UnitNumber > <VisitNumber>[id number]</VisitNumber> <PatientName>JOHNNIEMay</ PatientName> <DateOfBirth>1985</DateOfBirth> <Location>[facility]</Location> < ServiceDate>12/24/16</ServiceDate> <MNE>ESINDI</MNE> <OrderingPhy>Louis Hua DO</OrderingPhy> <OrderingPhyMNE>f rep ord dr kim</OrderingPhyMNE> < DictatingPhyMNE>f rep dict dr kim</DictatingPhyMNE> <CCListMNE>f rep ct mne</ CCListMNE> <AdmittingPhyMNE>f pt admit dr kim</AdmittingPhyMNE> <AttendingPhyMNE >f pt attend dr kim</AttendingPhyMNE> <ConsultingPhyMNE>f pt consult dr kim</ConsultingPhyMNE> <FamilyPhyMNE>f pt fam dr kim</FamilyPhyMNE> <OtherPhyMNE>f pt other dr kim</OtherPhyMNE> < PrimaryPhyMNE>f pt prim care dr kim</PrimaryPhyMNE> <ReferringPhyMNE>f pt referring dr kim</ReferringPhyMNE> Patient Name: JOHNNIE Unit Number: [id number] Dictated: 12/24/161857 Transcribed: 12/24/161857 EV Printed Date/Time: [~ rep prt dt]/[~ rep prt tm] [~ rep ct labl] - [~ rep ct ivnm] [facility] [place] [place] [address] Dictated: 12/24/161857 Transcribed: 12/24/161857 EV Printed Date/Time: [~ rep prt dt]/[~ rep prt tm] [~ rep ct labl] - [~ rep ct ivnm] [~ rep ct add3]] CT SCAN OF THE CERVICAL SPINE CLINICAL HISTORY: Unresponsive. History of metastatic melanoma. COMPARISON STUDY: No priors. TECHNIQUE: CT scan of the cervical spine is performed from the skull base to the upper thoracic spine. Images are reviewed in the axial, sagittal, and coronal planes. IV contrast was not administered for this examination. A dose lowering technique was utilized adhering to the principles of ALARA. FINDINGS: Skeletal structures: The skeletal structures are well mineralized. There is no evidence of fracture or subluxation involving the cervical spine. Vertebral body height and alignment are maintained. There is straightening of the cervical lordosis with reversal centered at C4-C5. The odontoid process and lateral masses are intact. The atlantoaxial articulation is preserved. The spinous processes appear intact. There is sclerosis of the C6 vertebral body consistent with metastatic disease. A sclerotic lesion is also seen in the posterior body of T1. Intervertebral discs: The disc spaces are well maintained. Central canal: Widely patent. Soft tissues: The prevertebral and paraspinous soft tissues are within normal limits. Calvarium: The visualized calvarium at the skull base appears intact. Brain parenchyma: See report of CT scan of the brain performed concurrently for intracranial findings.. Sinuses and mastoids: The visualized paranasal sinuses are clear. The mastoid air cells are well pneumatized. Lung apices: Endotracheal tube is in place. Apical lung parenchyma is clear as visualized. IMPRESSION: 1. There is no evidence of fracture or subluxation involving the cervical spine. 2. There are sclerotic lesions in the bodies of C6 and T1 consistent with bony metastatic disease. Electronically signed by: Wesley Eller M.D. 12/24/2016 7:02 PM Dictated Date/Time: 12/24/2016 6:58 PM The status of this report is Signed. Draft = Not yet reviewed or approved by Radiologist. Signed = Reviewed and approved by Radiologist. <AttendingPhy></AttendingPhy> <FamilyPhy>Danielito Hernandez M.D.</FamilyPhy> < PrimaryPhy>Danielito Hernandez M.D.</PrimaryPhy> <UnitNumber>[id number]</UnitNumber > <VisitNumber>[id number]</VisitNumber> <PatientName>COTY BLAIR </ PatientName> <DateOfBirth>1985</DateOfBirth> <Location>[facility]</Location> < ServiceDate>12/24/16</ServiceDate> <MNE>ESINDI</MNE> <OrderingPhy>Louis Hua DO</OrderingPhy> <OrderingPhyMNE>f rep ord dr kim</OrderingPhyMNE> < DictatingPhyMNE>f rep dict dr kim</DictatingPhyMNE> <CCListMNE>f rep ct mne</ CCListMNE> <AdmittingPhyMNE>f pt admit dr kim</AdmittingPhyMNE> <AttendingPhyMNE >f pt attend dr kim</AttendingPhyMNE> <ConsultingPhyMNE>f pt consult dr kim</ConsultingPhyMNE> <FamilyPhyMNE>f pt fam dr kim</FamilyPhyMNE> <OtherPhyMNE>f pt other dr kim</OtherPhyMNE> < PrimaryPhyMNE>f pt prim care dr kim</PrimaryPhyMNE> <ReferringPhyMNE>f pt referring dr kim</ReferringPhyMNE> EKG EKG shows normal sinus rhythm at 78 bpm, incomplete right bundle branch block, no change compared to 12/04/2016 Impression Assessment and Plan Intracranial hemorrhages/malignant melanoma with metastases to brain, liver and bones-- The patient will be admitted to the ICU on the ventilator. A long discussion was had with the patient's mother, who made it clear, that the patient had expressed that her life not be prolonged if there were no chance of recovery. The mother was informed, that with the extent of the patient's intracranial hemorrhaging, that there was no chance of medical or surgical intervention that would restore her quality of life With that in mind, the patient is being admitted to the ICU on the ventilator, on propofol, morphine IV when necessary, lorazepam IV when necessary until other family members arrive. The patient will be kept comfortable until family members have arrived, and then in the morning will be extubated. The patient's mother is agreeable that no aggressive intervention will be performed other than that as noted above. 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 Y/N: Yes Risk Level: High Given or contraindicated: SCD's, Contraindicated Note Total Time: Critical Care 30 - 74 minutes
--- NOTE | 2016-12-24 23:18 | EMERGENCY ROOM VISIT NOTE ---
History Report prepared by [place]: Angelica Powers Under the Supervision of: Dr. Louis Hua D.O. First contact with patient: 17:39 Chief Complaint: UNRESPONSIVE Stated Complaint: UNRESPONSIVE History of Present Illness The patient is a 31 year old female who presents to the Emergency Room with persistent unresponsiveness beginning [employer]. The patient present to the ED by EMS. She was found unresponsive in her apartment by her roommate. She was ashen jensen and not breathing. She was given Narcan with no response. She was given etomidate and intubated [employer] by EMS. 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 She is on oral chemo. The history is limited due to the patient's AMS. Source of History: family, EMS History Limited By: AMS Onset: [employer] Position: other (global) Quality: other (unresponsive) Timing: other (persistent) Review of Systems Unobtainable due to patient's AMS. Past Medical & Surgical Medical Problems: (1) Asthma (2) Intracranial hemorrhage (3) Malignant melanoma metastatic to lymph node (4) Melanoma (5) Metastatic melanoma of bone (6) Metastatic melanoma to liver (7) Seizure Surgical Problems: (1) History of radical neck surgery Family History Cancer Social History Smoking Status: Unknown if Ever Smoked Drug Use: none Marital Status: single Occupation Status: employed Current/Historical Medications Scheduled Control Pills ( Control Pills), 1 TAB PO DAILY Budesonide/Formoterol Fumarate (Symbicort 80/4.5 Inhaler), 2 PUFFS INH UD Cobimetinib Fumarate (Cotellic), 20 MG PO DAILY Dexamethasone (Dexamethasone), 4 MG PO BID Dicyclomine Hcl (Bentyl), 1 CAP PO TID Diphenhy/Alum/Mag/Sucralfa (Magic Swizzle - Diphenhy/Alum/Mag/Sucralfa), 30 ML MT BID Fluconazole (Diflucan), 1 TAB PO DAILY Levetiracetam (Keppra), 750 MG PO BID Megestrol Acetate (Megestrol Acetate), 20 MG PO DAILY Omeprazole (Prilosec), 40 MG PO QAM Vemurafenib (Zelboraf), 2 TAB PO BID [Diphenhy/Lidocaine], 10 ML TOP UD Scheduled PRN Albuterol Sulfate (Proventil Hfa), 2 PUFF INH Q4 PRN for Cough Loperamide Hcl (Imodium), 2 MG PO QID PRN for Diarrhea Ondansetron Hcl (Zofran), 8 MG PO Q8 PRN for Nausea Oxycodone Immediate Rel Tab (Roxicodone Ir), 5 MG PO Q4H PRN for Pain or Fever Triamterene/Hctz (Dyazide 37.5MG/25MG), 1 CAP PO DAILY PRN for Edema Allergies Coded Allergies: Penicillins (Verified Allergy, Unknown, unknown, 12/24/16) Physical Exam Vital Signs Date Time Temp Pulse Resp B/P (MAP) Pulse Ox O2 Delivery O2 Flow Rate FiO2 12/24/16 21:30 129/95 12/24/16 21:28 74 20 100 Mechanical Ventilator 12/24/16 21:15 132/94 12/24/16 21:01 138/107 12/24/16 20:58 74 14 100 Mechanical Ventilator 12/24/16 20:53 82 15 100 Mechanical Ventilator 12/24/16 20:45 133/96 12/24/16 20:30 129/99 12/24/16 20:23 74 13 100 Mechanical Ventilator 12/24/16 20:15 137/103 12/24/16 20:00 143/104 12/24/16 19:53 85 15 100 Mechanical Ventilator 12/24/16 19:48 94 18 97 Mechanical Ventilator 12/24/16 19:45 148/107 12/24/16 19:30 155/110 12/24/16 19:25 152/115 12/24/16 19:20 144/107 12/24/16 19:18 91 18 100 Mechanical Ventilator 12/24/16 19:15 144/103 12/24/16 19:10 136/103 12/24/16 19:05 142/99 12/24/16 19:00 141/102 12/24/16 18:55 138/101 12/24/16 18:50 137/84 12/24/16 18:48 81 18 100 Mechanical Ventilator 12/24/16 18:43 79 12 100 Mechanical Ventilator 12/24/16 18:40 134/91 12/24/16 18:38 84 13 100 Mechanical Ventilator 12/24/16 18:33 84 12 100 Mechanical Ventilator 12/24/16 18:32 100 12/24/16 18:30 125/89 12/24/16 18:28 88 17 99 Mechanical Ventilator 12/24/16 18:10 137/95 12/24/16 18:08 92 12 99 Mechanical Ventilator 12/24/16 18:05 135/93 12/24/16 18:03 97 12 99 Mechanical Ventilator 12/24/16 18:02 97 12/24/16 18:02 150/103 12/24/16 17:58 116 18 98 Mechanical Ventilator 12/24/16 17:54 149/91 12/24/16 17:53 119 20 88 Mechanical Ventilator 12/24/16 17:50 37.0 110 12 149/91 92 Mechanical Ventilator Physical Exam GENERAL: Lying on stretcher, ET tube in place, unresponsive. EYE EXAM: Left upward gaze. Right pupil 3mm and reactive. Left pupil 5mm and sluggish. OROPHARYNX: ET tube in place, bite goerges/abrasions on tongue. NECK: supple, no nuchal rigidity, no adenopathy, non-tender LUNGS: Coarse at bilateral bases. HEART: no murmurs, S1 normal and S2 normal ABDOMEN: abdomen soft, non-tender, normo-active bowel sounds, no masses, no rebound or guarding. BACK: Back is symmetrical on inspection and there is no deformity, no midline tenderness, no CVA tenderness. SKIN: no rashes and no bruising UPPER EXTREMITIES: upper extremities are grossly normal. LOWER EXTREMITIES: No pitting edema. NEURO EXAM: Eyes are closed Left upward gaze, ETT in place, spontaneous movement of RLE and RUE. Withdraws on left lower. Medical Decision & Procedures ER Provider Diagnostic Interpretation: Radiology results as stated below per my review and the radiologist's interpretation: SINGLE VIEW CHEST CLINICAL HISTORY: Change in mental status. Intubation. FINDINGS: An AP, portable, supine chest radiograph is compared to study dated 12/04/2016. The examination is degraded by portable technique and patient rotation. An endotracheal tube has been placed. The tip projects 4 cm above the gera. The cardiomediastinal silhouette is unremarkable. The lungs and pleural spaces are clear. No pneumothorax is seen. The bony thorax is grossly intact. IMPRESSION: 1. An endotracheal tube has been placed and the tip projects 4 cm above the gera. 2. The lungs are clear. Electronically signed by: Wesley Eller M.D. 12/24/2016 6:23 PM Dictated Date/Time: 12/24/2016 6:[address] SCAN OF THE BRAIN WITHOUT IV CONTRAST CLINICAL HISTORY: Unresponsive. Known metastatic melanoma. COMPARISON STUDY: CT of the brain dated 12/04/2016 and 06/14/2016. MRI of the brain dated 11/06/2016. TECHNIQUE: Unenhanced axial CT scan of the brain is performed from the vertex to the skull base. A dose lowering technique was utilized adhering to the principles of ALARA. FINDINGS: Brain parenchyma: Again seen are numerous hyperdense intracranial lesions consistent with the patient's known history of multifocal metastatic melanoma. There has been a marked increase in parenchymal edema involving lesions in the right frontal, left frontal, and left temporal lobes as compared to the recent CT dated 12/04/2016 with significant increase in hemorrhage as compared to that time. There is significant sulcal effacement, greatest in the right temporal, right frontal, and left temporal regions. No midline shift is seen. The largest lesion/hemorrhage along the right sylvian fissure on image #10 measures up to 4.5 cm (previously measured 3.0 cm.) A lesion in the right posterior frontal lobe on image #11 measures 2.2 cm (previously measured 1.8 cm), and a lesion in the anterior right frontal lobe on image #15 measures up to 2.5 cm (previously measured 2.0 cm). There are multiple new foci of hemorrhage identified. The largest are in the left temporal lobe seen on image #9 measuring 14 mm. There are greater than 10 additional smaller hemorrhagic lesions scattered throughout the brain parenchyma. Subarachnoid hemorrhage is identified and new from previous. This is located along the right sylvian fissure extending towards the supersellar cistern on image #8. Small foci of subarachnoid hemorrhage are seen along the right convexity (right posterior parietal lobe on images #20 and #22, right frontal sulci image #19). There is no evidence of acute territorial ischemia by CT criteria. No extra-axial fluid collection is seen. Ventricles, sulci, cisterns: See above. No intraventricular hemorrhage is identified. Intracranial vasculature: The visualized intracranial vasculature at the skull base is normal in appearance. Calvarium: Unremarkable. Sinuses and mastoids: Mucosal thickening is seen within the right ethmoid air cells. The remaining visualized paranasal sinuses are clear. The mastoid air cells are well pneumatized. Orbits: The bony orbits are grossly intact. IMPRESSION: 1. Significant progression of intracranial hemorrhagic metastatic disease as compared to 12/04/2016 with significant increase in associated edema. There is no midline shift or tonsillar herniation. 2. Foci of subarachnoid hemorrhage are identified along the right convexity and in the right sylvian fissure. This is new from previous. Findings were discussed with Dr. Hua in the emergency department at the time of interpretation. Electronically signed by: Wesley Eller M.D. 12/24/2016 6:58 PM Dictated Date/Time: 12/24/2016 6:[address] SCAN OF THE CERVICAL SPINE CLINICAL HISTORY: Unresponsive. History of metastatic melanoma. COMPARISON STUDY: No priors. TECHNIQUE: CT scan of the cervical spine is performed from the skull base to the upper thoracic spine. Images are reviewed in the axial, sagittal, and coronal planes. IV contrast was not administered for this examination. A dose lowering technique was utilized adhering to the principles of ALARA. FINDINGS: Skeletal structures: The skeletal structures are well mineralized. There is no evidence of fracture or subluxation involving the cervical spine. Vertebral body height and alignment are maintained. There is straightening of the cervical lordosis with reversal centered at C4-C5. The odontoid process and lateral masses are intact. The atlantoaxial articulation is preserved. The spinous processes appear intact. There is sclerosis of the C6 vertebral body consistent with metastatic disease. A sclerotic lesion is also seen in the posterior body of T1. Intervertebral discs: The disc spaces are well maintained. Central canal: Widely patent. Soft tissues: The prevertebral and paraspinous soft tissues are within normal limits. Calvarium: The visualized calvarium at the skull base appears intact. Brain parenchyma: See report of CT scan of the brain performed concurrently for intracranial findings.. Sinuses and mastoids: The visualized paranasal sinuses are clear. The mastoid air cells are well pneumatized. Lung apices: Endotracheal tube is in place. Apical lung parenchyma is clear as visualized. IMPRESSION: 1. There is no evidence of fracture or subluxation involving the cervical spine. 2. There are sclerotic lesions in the bodies of C6 and T1 consistent with bony metastatic disease. Electronically signed by: Wesley Eller M.D. 12/24/2016 7:02 PM Dictated Date/Time: 12/24/2016 6:58 PM Laboratory Results 12/24/16 17:50 Red Blood Count 4.25, Mean Corpuscular Volume 94.4, Mean Corpuscular Hemoglobin 31.8, Mean Corpuscular Hemoglobin Concent 33.7, Mean Platelet Volume 10.7, Neutrophils (%) (Auto) 94.5, Lymphocytes (%) (Auto) 1.1, Monocytes (%) (Auto) 2.5, Eosinophils (%) (Auto) 0.0, Basophils (%) (Auto) 0.1, Neutrophils # (Auto) 21.61, Lymphocytes # (Auto) 0.24, Monocytes # (Auto) 0.57, Eosinophils # (Auto) 0.00, Basophils # (Auto) 0.02 12/24/16 17:50 Test 12/24/16 00:00 12/24/16 17:50 12/24/16 18:03 12/24/16 18:07 Urine Color YELLOW Urine Appearance CLEAR (CLEAR) Urine pH 6.0 (4.5-7.5) Urine Specific [place] 1.024 (1.000-1.030) Urine Protein 2+ (NEG) Urine Glucose (UA) 3+ (NEG) Urine Ketones NEG (NEG) Urine Occult Blood 1+ (NEG) Urine Nitrite NEG (NEG) Urine Bilirubin NEG (NEG) Urine Urobilinogen NEG (NEG) Urine Leukocyte Esterase NEG (NEG) Urine WBC (Auto) 1-5 /hpf (0-5) Urine RBC (Auto) 5-10 /hpf (0-4) Urine Hyaline Casts (Auto) 1-5 /lpf (0-5) Urine Epithelial Cells (Auto) >30 /lpf (0-5) Urine Bacteria (Auto) NEG (NEG) Urine Renal Epithelial Cells 0-5 /lpf (0-5) Urine Pathogenic Casts 5-10 GRANULAR CASTS /lpf (0) White Blood Count 22.85 K/uL (4.8-10.8) Red Blood Count 4.25 M/uL (4.2-5.4) Hemoglobin 13.5 g/dL (12.0-16.0) Hematocrit 40.1 % (37-47) Mean Corpuscular Volume 94.4 fL (80-100) Mean Corpuscular Hemoglobin 31.8 pg (25-34) Mean Corpuscular Hemoglobin Concent 33.7 g/dl (32-36) Platelet Count 297 K/uL (130-400) Mean Platelet Volume 10.7 fL (7.4-10.4) Neutrophils (%) (Auto) 94.5 % Lymphocytes (%) (Auto) 1.1 % Monocytes (%) (Auto) 2.5 % Eosinophils (%) (Auto) 0.0 % Basophils (%) (Auto) 0.1 % Neutrophils # (Auto) 21.61 K/uL (1.4-6.5) Lymphocytes # (Auto) 0.24 K/uL (1.2-3.4) Monocytes # (Auto) 0.57 K/uL (0.11-0.59) Eosinophils # (Auto) 0.00 K/uL (0-0.5) Basophils # (Auto) 0.02 K/uL (0-0.2) RDW Standard Deviation 44.7 fL (36.4-46.3) RDW Coefficient of Variation 12.9 % (11.5-14.5) Immature Granulocyte % (Auto) 1.8 % Immature Granulocyte # (Auto) 0.41 K/uL (0.00-0.02) Prothrombin Time 9.6 SECONDS (9.0-12.0) Prothromb Time International Ratio 0.9 (0.9-1.1) Activated Partial Thromboplast Time 20.1 SECONDS (21.0-31.0) Partial Thromboplastin Ratio 0.8 Estimated GFR () 45.4 Estimated GFR (Non- 39.2 BUN/Creatinine Ratio 11.8 (10-20) Calcium Level 8.7 mg/dl (8.5-10.1) Total Bilirubin 0.5 mg/dl (0.2-1) Direct Bilirubin mg/dl (0-0.2) Aspartate Amino Transf (AST/SGOT) 126 U/L (15-37) Alanine Aminotransferase (ALT/SGPT) 58 U/L (12-78) Alkaline Phosphatase 188 U/L (45-117) Troponin I 0.544 ng/ml (0-0.045) Total Protein 7.1 gm/dl (6.4-8.2) Albumin 3.6 gm/dl (3.4-5.0) Beta-Hydroxybutyric Acid 3.25 mg/dL (0.2-2.81) Chemistry Specimen Hemolysis Bedside Chloride 100 mEq/L (101-112) Bedside Total CO2 16 mEq/l (24-31) Anion Gap 22.0 mmol/L (16-25) Bedside Blood Urea Nitrogen 20 mg/dl (7-18) Bedside Creatinine 1.4 mg/dl (0.6-1.3) Bedside Glucose (other) 355 mg/dl (70-99) Bedside Ionized Calcium (Fercho) 1.09 mmol/l (1.12-1.32) Bedside Lactic Acid Venous 10.65 mmol/L (0.90-1.70) Test 12/24/16 18:12 Bedside Hemoglobin 13.6 g/dl (12.0-16.0) Bedside Hematocrit 40 % (37-47) Bedside Blood Gas pH (LAB) 7.29 (7.35-7.45) Bedside Blood Gas pCO2 (LAB) 38 mmHg (35-46) Bedside Blood Gas pO2 (LAB) > 420 mmHg (80-95) Bedside Blood Gas HCO3 (LAB) 19 meq/L (19-24) Bedside Blood Gas Total CO2 20 mEq/l (24-31) Bedside Blood Gas Base Excess (LAB) -8.0 meq/L (-9-1.8) Bedside Blood Gas O2 Saturation 100.0 % (90-95) Bedside Sodium 134 mEq/L (135-144) Bedside Potassium 3.2 mEq/L (3.3-5.0) Laboratory results per my review. Medications Administered Medications (Trade) Dose Ordered Sig/Marge Route Start Time Stop Time Status Last Admin Dose Admin Midazolam HCl (Versed Inj) 10 mg STK-MED ONCE .ROUTE 12/24/16 17:58 12/24/16 17:59 DC 12/24/16 18:46 4 MG Vecuronium [place] (Vecuronium [place] Inj) 10 mg NOW STAT IV 12/24/16 17:58 12/24/16 18:00 DC 12/24/16 18:46 10 MG Propofol (Diprivan Iv Emulsion 100ml Vial) 1 dose UD STAT IV 12/24/16 18:00 12/24/16 18:01 DC 12/24/16 18:53 1 DOSE Levetiracetam 1000 mg/Dextrose 110 ml @ 440 mls/hr ONE ONCE IV 12/24/16 18:15 12/24/16 18:29 DC 12/24/16 18:46 440 MLS/HR Dexamethasone Sodium Phosphate 10 mg/Syringe 2.5 ml @ 1 mls/min NOW ONCE IV 12/24/16 18:15 12/24/16 18:17 DC 12/24/16 18:45 1 MLS/MIN Cefepime HCl 1000 mg/Syringe 11 ml @ 5.5 mls/min NOW ONCE IV 12/24/16 18:45 12/24/16 18:46 DC 12/24/16 19:06 5.5 MLS/MIN ECG Indication: altered mental status Rate (beats per minute): 78 Rhythm: sinus rhythm Findings: RBBB (incomplete), other (normal axis) ED Course ED COURSE: Vital signs were reviewed and showed tachycardia. The patients medical record was reviewed The above diagnostic studies were performed and reviewed. ED treatments and interventions as stated above. 1748: The patient was evaluated in room B1. A complete history and physical examination was performed. 1758: Vecuronium [place] 10 mg IV, Versed Inj 10 mg IV. 1800: Propofol 1 dose IV. 1815: Dexamethasone Sodium Phosphate 10 mg/Syringe 2.5 ml @ 1 mls/min IV, Levetiracetam 1000 mg/Dextrose 110 ml @ 440 mls/hr IV. 1816: Istat lactate is 10. 1820: I spoke with the patient's aunt who believes that the patient is a full code. She follows at [facility]. 1833: I reevaluated the patient. She is stable. 1838: I reevaluated the patient. She is stable. 1845: Cefepime HCl 1000 mg/Syringe 11 ml @ 5.5 mls/min IV. 1846: I spoke with radiology regarding the patient's CT results. 184: I had a long conversation with the patient's family about what they would like to do for the patient. 191: I reevaluated the patient. I updated her family on the results. They request that I speak with hematology oncology at [facility]. 1929: I discussed the patient's case with Dr. Shi, [facility] hematology oncology. He discussed his recommendations with me. 1938: I reevaluated the patient. I updated the patient's family. 1953: I discussed the patient's case with Dr. Burton, [facility] neurosurgery. He says that it is unlikely that there will be any neurosurgical intervention because of the multiple bleeds and lesions, but agrees to admitting the patient. 2005: I reevaluated the patient. I updated the patient's family. 2027: I reevaluated the patient. I had a long discussion with the mother regarding the plan. 2048: I discussed the patient's case with Sebastián Newman PA-C [facility] [employer]. He will evaluate the patient. 2050: I discussed the patient's case with Dr. Colindres, [facility] hospitalist. He will evaluate the patient for further management. 2053: Upon reevaluation, the patient is stable. After prolonged discussion between Sebastián, Dr. Colindres, and the patient's family, they are agreeable to terminal extubation tomorrow morning. I discussed my findings with the patient' s family and they understand and agree with the treatment plan. Based on the patients age, coexisting illnesses, exam and lab findings the decision to treat as an inpatient was made. The patient remained stable while under my care. The patient will be evaluated for further management. Medical Decision Differential diagnoses includes but is not limited to toxic, metabolic, infectious, traumatic, cardiac, neurologic, hematologic, psychiatric and inflammatory etiologies. Patient is a 31-year-old female with diffuse metastatic melanoma was found down at home unresponsive. I received medical command on this patient. They're having difficulty bagging the patient and she was going down. Recommended etomidate and bagging the patient to the ER. Upon presentation she was already intubated. IVs were established blood work was obtained. She is immediately taken CT. CT showed multiple intracranial hemorrhages along with a subarachnoid bleed. Per family I discussed the case with hematology oncology at [facility], neurosurgery, our audio visual tech and internal medicine attending. I had multiple prolonged conversations with family. It was eventually decided the patient would be a no code and admitted for terminal extubation. Patient was given vecuronium and placed on propofol drip upon initial presentation. She was also given Versed., Was updated bedside and patient was admitted to the ICU as a DO NOT RESUSCITATE. Medication Reconcilliation Current Medication List: was personally reviewed by me Blood Pressure Screening Patient's blood pressure: Normal blood pressure Blood pressure disposition: Did not require urgent referral Consults Time Called: 1917 Consulting Physician: Dr. Shi, [facility] hematology oncology Returned Call: 1929 I discussed the patient's case with him. He discussed his recommendations with me. Additional Consults: Time Called: 1937 Consulted Physician: Dr. Burton, [facility] neurosurgery Returned Call: 1953 Additional Comments: I discussed the patient's case with him. He says that it is unlikely that there will be any neurosurgical intervention because of the multiple bleeds and lesions, but agrees to admitting the patient. Time Called: 2039 Consulted Physician: Sebastián Newman PA-C [facility] [employer] Returned Call: 2048 Additional Comments: I discussed the patient's case with him. He will evaluate the patient. Time Called: 2039 Consulted Physician: Dr. Colindres, [facility] hospitalist. Returned Call: 2050 Additional Comments: I reviewed the patient's case with him. He will evaluate the patient for further management. Impression Primary Impression: Intracranial hemorrhage Additional Impressions: SAH (subarachnoid hemorrhage) Metastatic melanoma Respiratory failure Critical Care I have personally spent 125 minutes of critical care time in the direct management of this patient. This includes bedside care, interpretation of diagnostic studies, and testing, discussion with consultants, patient, and family members, and other required patient management activities. This 125 minutes is in excess of all separately billable procedures. Scribe Attestation The scribe's documentation has been prepared under my direction and personally reviewed by me in its entirety. I confirm that the note above accurately reflects all work, treatment, procedures, and medical decision making performed by me. Departure Information Dispostion Being Evaluated By Hospitalist Danielito Ham M.D. (PCP) Patient Instructions [facility] Problem Qualifiers Additional Impressions: Respiratory failure Chronicity: unspecified Respiratory failure complication: unspecified whether with hypoxia or hypercapnia Qualified Codes: J96.90 - Respiratory failure, unspecified, unspecified whether with hypoxia or hypercapnia
[2016-12-24 23:22] VITALS: PULSE 66; O2SAT 100
--- NOTE | 2016-12-24 23:37 | Critical Care Consultation ---
Critical Care Consultation Date of Consultation: Dec 24, 2016. Attending Physician: Wale Colindres M.D. 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 Worsening metastatic disease with focal hemorrhages noted throughout the brain which have worsened over the past month. Currently intubated and sedated. Planned terminal extubation tomorrow morning becoming comfort measures only at that point. History of Present Illness Patient is an unfortunate 31-year-old female with a past medical history of melanoma with metastatic spread to the liver, and most recently brain. She is been treated over the past 4 years for melanoma and has been in clinical trials for this. In March of this past year, the patient developed new onset of seizures and was diagnosed with metastatic lesions to the brain. Since that time, she has had poor progression of her disease state. This evening, the patient's roommate found her unresponsive and apneic. EMS was summoned and the patient was intubated in the field. She received vecuronium as well as propofol and versed while in the emergency department. Per ED physician, multiple conversations were had with specialists at [facility]. At this point, in conversation with family, they are aware that the patient's outcome is likely grave. At this point, the family does not wish to proceed with any further medical intervention. They wish to allow the patient to be comfortable overnight while intubated recognizing that she may pass while intubated. Planned extubation in the morning was agreed upon with the intent for comfort measures only at that point. The patient's mother reports that she has had extensive conversations with her daughter regarding this in the past and she would not wish to undergo further life-sustaining efforts. While in the emergency department, the patient was found to have a moderate leukocytosis likely stress related. Her lactic acid was elevated at greater than 10. [id number] troponin was elevated as well. Liver enzymes were elevated with an AST greater than ALT. Prior to diagnosis of melanoma, the patient was extremely active competing in [employer] races. She lived locally with a roommate. She actually continued to work despite her declining state. History of present illness was obtained from medical records as well as family members secondary to the patient's current state of sedation with endotracheal intubation. Past Medical/Surgical History Medical Problems: (1) Asthma (2) Intracranial hemorrhage (3) Malignant melanoma metastatic to lymph node (4) Melanoma (5) Metastatic melanoma of bone (6) Metastatic melanoma to liver (7) Seizure Surgical Problems: (1) History of radical neck surgery Family History Cancer noncontributory Social History Smoking Status: Unknown if Ever Smoked Smokeless Tobacco Use: Unknown Alcohol Use: Drug Use: none Marital Status: single Housing Status: lives with roommate Occupation Status: employed Allergies Coded Allergies: Penicillins (Verified Allergy, Unknown, unknown, 12/24/16) Home Medications Scheduled Control Pills ( Control Pills), 1 TAB PO DAILY Budesonide/Formoterol Fumarate (Symbicort 80/4.5 Inhaler), 2 PUFFS INH UD Cobimetinib Fumarate (Cotellic), 20 MG PO DAILY Dexamethasone (Dexamethasone), 4 MG PO BID Dicyclomine Hcl (Bentyl), 1 CAP PO TID Diphenhy/Alum/Mag/Sucralfa (Magic Swizzle - Diphenhy/Alum/Mag/Sucralfa), 30 ML MT BID Fluconazole (Diflucan), 1 TAB PO DAILY Levetiracetam (Keppra), 750 MG PO BID Megestrol Acetate (Megestrol Acetate), 20 MG PO DAILY Omeprazole (Prilosec), 40 MG PO QAM Vemurafenib (Zelboraf), 2 TAB PO BID [Diphenhy/Lidocaine], 10 ML TOP UD Scheduled PRN Albuterol Sulfate (Proventil Hfa), 2 PUFF INH Q4 PRN for Cough Loperamide Hcl (Imodium), 2 MG PO QID PRN for Diarrhea Ondansetron Hcl (Zofran), 8 MG PO Q8 PRN for Nausea Oxycodone Immediate Rel Tab (Roxicodone Ir), 5 MG PO Q4H PRN for Pain or Fever Triamterene/Hctz (Dyazide 37.5MG/25MG), 1 CAP PO DAILY PRN for Edema Current Inpatient Medications Current Inpatient Medications Medications (Trade) Dose Ordered Sig/Marge Route Start Time Stop Time Status Last Admin Dose Admin Lorazepam (Ativan Inj) 1 mg Q1H PRN IV 12/24/16 21:45 01/23/17 21:44 12/24/16 22:26 1 MG Acetaminophen 100 ml @ 400 mls/hr Q8H PRN IV 12/24/16 21:45 01/23/17 21:44 Fentanyl Citrate (Fentanyl Inj) 25 mcg Q1H PRN IV 12/24/16 22:15 01/07/17 22:14 12/24/16 22:26 25 MCG Propofol (Diprivan Iv Emulsion 100ml Vial) 1 dose UD PRN IV 12/24/16 22:30 12/27/16 22:29 Midazolam HCl 250 ml @ 0 mls/hr Q0M PRN IV 12/24/16 22:18 01/23/17 22:17 Review of Systems Unable to obtain secondary to patient's current state of sedation with endotracheal intubation. Physical Exam Date Time Temp Pulse Resp B/P (MAP) Pulse Ox O2 Delivery O2 Flow Rate FiO2 12/24/16 22:24 40 12/24/16 21:30 129/95 12/24/16 21:28 74 20 100 Mechanical Ventilator 12/24/16 21:15 132/94 12/24/16 21:01 138/107 12/24/16 20:58 74 14 100 Mechanical Ventilator 12/24/16 20:53 82 15 100 Mechanical Ventilator 12/24/16 20:45 133/96 12/24/16 20:30 129/99 12/24/16 20:23 74 13 100 Mechanical Ventilator 12/24/16 20:15 137/103 12/24/16 20:00 143/104 12/24/16 19:53 85 15 100 Mechanical Ventilator 12/24/16 19:48 94 18 97 Mechanical Ventilator 12/24/16 19:45 148/107 12/24/16 19:30 155/110 12/24/16 19:25 152/115 12/24/16 19:20 144/107 12/24/16 19:18 91 18 100 Mechanical Ventilator 12/24/16 19:15 144/103 12/24/16 19:10 136/103 12/24/16 19:05 142/99 12/24/16 19:00 141/102 12/24/16 18:55 138/101 12/24/16 18:50 137/84 12/24/16 18:48 81 18 100 Mechanical Ventilator 12/24/16 18:43 79 12 100 Mechanical Ventilator 12/24/16 18:40 134/91 12/24/16 18:38 84 13 100 Mechanical Ventilator 12/24/16 18:33 84 12 100 Mechanical Ventilator 12/24/16 18:32 100 12/24/16 18:30 125/89 12/24/16 18:28 88 17 99 Mechanical Ventilator 12/24/16 18:10 137/95 12/24/16 18:08 92 12 99 Mechanical Ventilator 12/24/16 18:05 135/93 12/24/16 18:03 97 12 99 Mechanical Ventilator 12/24/16 18:02 97 12/24/16 18:02 150/103 12/24/16 17:58 116 18 98 Mechanical Ventilator 12/24/16 17:54 149/91 12/24/16 17:53 119 20 88 Mechanical Ventilator 12/24/16 17:50 37.0 110 12 149/91 92 Mechanical Ventilator VITAL SIGNS - Vital signs and nursing notes were reviewed. GENERAL - 31-year-old frail appearing female who is intubated and in no acute distress. SKIN - Without rashes. HEAD - NC/AT. Hair loss noted. EYES - LEFT greater than right pupillary dilation. EARS - No deformities of external structures noted on gross examination bilaterally. NOSE - Midline and without cyanosis. No epistaxis or purulent drainage noted. MOUTH/OROPHARYNX - Without perioral cyanosis. NECK - Previous surgical incision site noted to the RIGHT sided neck. LUNGS - Chest wall symmetric without accessory muscle use, intercostals retractions, or central cyanosis. Normal vesicular breath sounds CTA B/L. No wheezes, rales, or rhonchi appreciated. CARDIAC - RRR with S1/S2. No murmur, rubs, or gallops appreciated. ABDOMEN - Abdominal contour scaphoid without pulsations or visible masses. BS hypoactive all four quadrants. No tenderness, palpable masses, hepatosplenomegaly, or ascites noted. EXTREMITIES - No clubbing or peripheral cyanosis. No pretibial edema present. NEUROLOGIC - Sedate. Does not withdraw to painful stimuli. Laboratory Results Last 24 Hours Test 12/24/16 00:00 12/24/16 17:50 12/24/16 18:03 12/24/16 18:07 Urine Color YELLOW Urine Appearance CLEAR Urine pH 6.0 Urine Specific [place] 1.024 Urine Protein 2+ Urine Glucose (UA) 3+ Urine Ketones NEG Urine Occult Blood 1+ Urine Nitrite NEG Urine Bilirubin NEG Urine Urobilinogen NEG Urine Leukocyte Esterase NEG Urine WBC (Auto) 1-5 /hpf Urine RBC (Auto) 5-10 /hpf Urine Hyaline Casts (Auto) 1-5 /lpf Urine Epithelial Cells (Auto) >30 /lpf Urine Bacteria (Auto) NEG Urine Renal Epithelial Cells 0-5 /lpf Urine Pathogenic Casts 5-10 GRANULAR CASTS /lpf White Blood Count 22.85 K/uL Red Blood Count 4.25 M/uL Hemoglobin 13.5 g/dL Hematocrit 40.1 % Mean Corpuscular Volume 94.4 fL Mean Corpuscular Hemoglobin 31.8 pg Mean Corpuscular Hemoglobin Concent 33.7 g/dl Platelet Count 297 K/uL Mean Platelet Volume 10.7 fL Neutrophils (%) (Auto) 94.5 % Lymphocytes (%) (Auto) 1.1 % Monocytes (%) (Auto) 2.5 % Eosinophils (%) (Auto) 0.0 % Basophils (%) (Auto) 0.1 % Neutrophils # (Auto) 21.61 K/uL Lymphocytes # (Auto) 0.24 K/uL Monocytes # (Auto) 0.57 K/uL Eosinophils # (Auto) 0.00 K/uL Basophils # (Auto) 0.02 K/uL RDW Standard Deviation 44.7 fL RDW Coefficient of Variation 12.9 % Immature Granulocyte % (Auto) 1.8 % Immature Granulocyte # (Auto) 0.41 K/uL Prothrombin Time 9.6 SECONDS Prothromb Time International Ratio 0.9 Activated Partial Thromboplast Time 20.1 SECONDS Partial Thromboplastin Ratio 0.8 Sodium Level 133 mmol/L Potassium Level 3.8 mmol/L Chloride Level 98 mmol/L Carbon Dioxide Level 13 mmol/L Anion Gap 22.0 mmol/L 22.0 mmol/L Blood Urea Nitrogen 20 mg/dl Creatinine 1.71 mg/dl Estimated GFR () 45.4 Estimated GFR (Non- 39.2 BUN/Creatinine Ratio 11.8 Random Glucose 354 mg/dl Calcium Level 8.7 mg/dl Total Bilirubin 0.5 mg/dl Direct Bilirubin mg/dl Aspartate Amino Transf (AST/SGOT) 126 U/L Alanine Aminotransferase (ALT/SGPT) 58 U/L Alkaline Phosphatase 188 U/L Troponin I 0.544 ng/ml Total Protein 7.1 gm/dl Albumin 3.6 gm/dl Beta-Hydroxybutyric Acid 3.25 mg/dL Chemistry Specimen Hemolysis Bedside Hemoglobin 13.9 g/dl Bedside Hematocrit 41 % Bedside Sodium 133 mEq/L Bedside Potassium 4.0 mEq/L Bedside Chloride 100 mEq/L Bedside Total CO2 16 mEq/l Bedside Blood Urea Nitrogen 20 mg/dl Bedside Creatinine 1.4 mg/dl Bedside Glucose (other) 355 mg/dl Bedside Ionized Calcium (Fercho) 1.09 mmol/l Bedside Lactic Acid Venous 10.65 mmol/L Test 12/24/16 18:12 Bedside Hemoglobin 13.6 g/dl Bedside Hematocrit 40 % Bedside Blood Gas pH (LAB) 7.29 Bedside Blood Gas pCO2 (LAB) 38 mmHg Bedside Blood Gas pO2 (LAB) > 420 mmHg Bedside Blood Gas HCO3 (LAB) 19 meq/L Bedside Blood Gas Total CO2 20 mEq/l Bedside Blood Gas Base Excess (LAB) -8.0 meq/L Bedside Blood Gas O2 Saturation 100.0 % Bedside Sodium 134 mEq/L Bedside Potassium 3.2 mEq/L Diagnostic Results Radiological imaging and reports were reviewed by myself. Radiologist's Interpretation as follows: SINGLE VIEW CHEST CLINICAL HISTORY: Change in mental status. Intubation. FINDINGS: An AP, portable, supine chest radiograph is compared to study dated 12/04/2016. The examination is degraded by portable technique and patient rotation. An endotracheal tube has been placed. The tip projects 4 cm above the gera. The cardiomediastinal silhouette is unremarkable. The lungs and pleural spaces are clear. No pneumothorax is seen. The bony thorax is grossly intact. IMPRESSION: 1. An endotracheal tube has been placed and the tip projects 4 cm above the gera. 2. The lungs are clear. CT SCAN OF THE BRAIN WITHOUT IV CONTRAST CLINICAL HISTORY: Unresponsive. Known metastatic melanoma. COMPARISON STUDY: CT of the brain dated 12/04/2016 and 06/14/2016. MRI of the brain dated 11/06/2016. TECHNIQUE: Unenhanced axial CT scan of the brain is performed from the vertex to the skull base. A dose lowering technique was utilized adhering to the principles of ALARA. FINDINGS: Brain parenchyma: Again seen are numerous hyperdense intracranial lesions consistent with the patient's known history of multifocal metastatic melanoma. There has been a marked increase in parenchymal edema involving lesions in the right frontal, left frontal, and left temporal lobes as compared to the recent CT dated 12/04/2016 with significant increase in hemorrhage as compared to that time. There is significant sulcal effacement, greatest in the right temporal, right frontal, and left temporal regions. No midline shift is seen. The largest lesion/hemorrhage along the right sylvian fissure on image #10 measures up to 4.5 cm (previously measured 3.0 cm.) A lesion in the right posterior frontal lobe on image #11 measures 2.2 cm (previously measured 1.8 cm), and a lesion in the anterior right frontal lobe on image #15 measures up to 2.5 cm (previously measured 2.0 cm). There are multiple new foci of hemorrhage identified. The largest are in the left temporal lobe seen on image #9 measuring 14 mm. There are greater than 10 additional smaller hemorrhagic lesions scattered throughout the brain parenchyma. Subarachnoid hemorrhage is identified and new from previous. This is located along the right sylvian fissure extending towards the supersellar cistern on image #8. Small foci of subarachnoid hemorrhage are seen along the right convexity (right posterior parietal lobe on images #20 and #22, right frontal sulci image #19). There is no evidence of acute territorial ischemia by CT criteria. No extra-axial fluid collection is seen. Ventricles, sulci, cisterns: See above. No intraventricular hemorrhage is identified. Intracranial vasculature: The visualized intracranial vasculature at the skull base is normal in appearance. Calvarium: Unremarkable. Sinuses and mastoids: Mucosal thickening is seen within the right ethmoid air cells. The remaining visualized paranasal sinuses are clear. The mastoid air cells are well pneumatized. Orbits: The bony orbits are grossly intact. IMPRESSION: 1. Significant progression of intracranial hemorrhagic metastatic disease as compared to 12/04/2016 with significant increase in associated edema. There is no midline shift or tonsillar herniation. 2. Foci of subarachnoid hemorrhage are identified along the right convexity and in the right sylvian fissure. This is new from previous. CT SCAN OF THE CERVICAL SPINE CLINICAL HISTORY: Unresponsive. History of metastatic melanoma. COMPARISON STUDY: No priors. TECHNIQUE: CT scan of the cervical spine is performed from the skull base to the upper thoracic spine. Images are reviewed in the axial, sagittal, and coronal planes. IV contrast was not administered for this examination. A dose lowering technique was utilized adhering to the principles of ALARA. FINDINGS: Skeletal structures: The skeletal structures are well mineralized. There is no evidence of fracture or subluxation involving the cervical spine. Vertebral body height and alignment are maintained. There is straightening of the cervical lordosis with reversal centered at C4-C5. The odontoid process and lateral masses are intact. The atlantoaxial articulation is preserved. The spinous processes appear intact. There is sclerosis of the C6 vertebral body consistent with metastatic disease. A sclerotic lesion is also seen in the posterior body of T1. Intervertebral discs: The disc spaces are well maintained. Central canal: Widely patent. Soft tissues: The prevertebral and paraspinous soft tissues are within normal limits. Calvarium: The visualized calvarium at the skull base appears intact. Brain parenchyma: See report of CT scan of the brain performed concurrently for intracranial findings.. Sinuses and mastoids: The visualized paranasal sinuses are clear. The mastoid air cells are well pneumatized. Lung apices: Endotracheal tube is in place. Apical lung parenchyma is clear as visualized. IMPRESSION: 1. There is no evidence of fracture or subluxation involving the cervical spine. 2. There are sclerotic lesions in the bodies of C6 and T1 consistent with bony metastatic disease. 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 Worsening metastatic disease with focal hemorrhages noted throughout the brain which have worsened over the past month. Currently intubated and sedated. Planned terminal extubation tomorrow morning becoming comfort measures only at that point. Neuro - * [facility] ICU: Unable to assess 2/2 RASS -5 * Metastatic melanoma to the brain with significant progression of intracranial hemorrhagic metastatic disease compared to one month ago. Areas of subarachnoid hemorrhage also noted on CT today. Patient found unresponsive in the field. Intubated by EMS. * Consultation was placed by emergency room physician after he had spoken extensively with the family as well as specialists at [facility]. I was present for conversation with the patient's mother and aunt as well as admitting hospitalist and ER physician. During this conversation, we expressed concern for poor outcome as well as limitations of this facility. After extensive conversation, the mother reports that she has had multiple conversations with her daughter regarding end-of-life events. She reports that the patient has expressed in the past that she would not want to undergo continued life- sustaining measures in this type of situation. It was explained that the expectation of this facility and would be for temporary intubation (~12 hours) with the idea of no escalation of therapies and extubation in the morning - likely terminally. The family was offered transfer to tertiary care facility if they felt they wished to be further evaluated or undergo any possible intervention. The mother declines at this point and is comfortable with treatment plan. Patient will be sedated throughout the night until other family /friends can visit. Tomorrow morning, plans for palliative care consultation and proceed with extubation. Prior to making any decisions, I did discuss this with my attending physician. He offers that the only thing that could be provided at this time and at this facility would be for 12 hour trial of intubation with terminal extubation in the morning with family understanding no escalation of care or ability to provide intervention at this facility. This was relayed to the family and they wished to proceed. * Sedation: Propofol/Versed * Pain: Fentanyl 25 mcg q1h PRN Cardiac - * No history of cardiac disease. * Elevated troponin of 0.544 - likely due to stress of hypoxia. Respiratory - * Intubated in the field 2/2 apnea and hypoxia w/ a respiratory rate of 2/min. * Current settings: 12min/450mL/5cmH20/40% * Will not escalate care per family requests. GI - * NPO RENAL/LYTES - * Initial slight PAULA w/ Cr 1.71 * Will not order AM labs at this point in the setting of likely early extubation tomorrow AM. - * Pacheco Catheter in place. ENDO - * Elevated BSG >300 - likely stress related. HEME - * Stable H&H ID - * Elevated WBCs >22k - likely stress related leukemoid reaction. * Afebrile. CXR unremarkable. * Received Cefepime in the ED * Will discontinue antibiotics per family wishes. LINES/IV ACCESS - * PIVs intact. * Pacheco Catheter Intact. DVT PROPHYLAXIS - * No chemical prophylaxis indicated in the setting of acute hemorrhagic metastases to the brain and subarachnoid blood. I have personally spent 45 minutes of critical care time in the direct management of this patient. This is a life/limb threatening event. This includes time spent evaluating patient, direct bedside care, chart review, placing orders, interpretation of diagnostic studies, discussion with consultants, patient, and family members, as well as other required patient management activities. This time is exclusive of all separately billable procedures, and teaching time and separate from and in addition to any other critical care service time. Thank you for this consultation allow us to be part of this patient's care. Please refer to my attending physician's documentation for any further recommendations.
[2016-12-24] MEDS: MIDAZOLAM 125MG/250ML D5W 250 ML IV PRN (23:48)
[2016-12-25] VITALS (7 sets, daily range): BP systolic 102; BP diastolic 63; PULSE 78; O2SAT 99–100
--- NOTE | 2016-12-25 07:58 | Family Medicine Progress Note ---
Progress Note Date of Service Dec 25, 2016. Subjective Pt evaluation today including: conversation w/ family, conversation w/ sec reporting consultant, review of inpatient medication list PO Intake: NPO Voiding: mishra catheter in place Unable to take subjective history from patient Patient is resting comfortably in bed and in no acute distress Was extubated from ventilator this morning with plan for comfort measures. Currently on morphine drip. Family at the bedside Additional Comments: Not relevant/unable to obtain Medications Current Inpatient Medications Medications (Trade) Dose Ordered Sig/Marge Route Start Time Stop Time Status Last Admin Dose Admin Lorazepam (Ativan Inj) 1 mg Q1H PRN IV 12/24/16 21:45 01/23/17 21:44 12/24/16 22:26 1 MG Acetaminophen 100 ml @ 400 mls/hr Q8H PRN IV 12/24/16 21:45 01/23/17 21:44 Fentanyl Citrate (Fentanyl Inj) 25 mcg Q1H PRN IV 12/24/16 22:15 01/07/17 22:14 12/24/16 22:26 25 MCG Propofol (Diprivan Iv Emulsion 100ml Vial) 1 dose UD PRN IV 12/24/16 22:30 12/27/16 22:29 Midazolam HCl 250 ml @ 0 mls/hr Q0M PRN IV 12/24/16 22:18 01/23/17 22:17 12/24/16 23:48 8 MLS/HR Morphine Sulfate/ Dextrose 250 ml @ 0 mls/hr Q0M PRN IV 12/25/16 08:30 01/08/17 08:29 Objective Vital Signs Date Time Temp Pulse Resp B/P (MAP) Pulse Ox O2 Delivery O2 Flow Rate FiO2 12/25/16 12:00 100 Nasal Cannula 3.0 12/25/16 08:00 100 Mechanical Ventilator 50 12/25/16 08:00 Mechanical Ventilator 40 12/25/16 08:00 50 12/25/16 07:23 40 12/25/16 05:23 40 12/25/16 04:19 100 Mechanical Ventilator 50 12/25/16 04:19 50 12/25/16 01:48 40 12/25/16 00:00 50 12/25/16 00:00 100 Mechanical Ventilator 50 12/24/16 23:22 66 12 100 12/24/16 23:00 64 12 110/84 (93) 100 12/24/16 22:24 40 12/24/16 22:24 37.2 68 14 134/99 (111) 100 Mechanical Ventilator 12/24/16 22:22 66 12 100 12/24/16 22:20 37.1 64 12 134/99 Mechanical Ventilator 50 12/24/16 21:30 129/95 12/24/16 21:28 74 20 100 Mechanical Ventilator 12/24/16 21:15 132/94 12/24/16 21:01 138/107 12/24/16 20:58 74 14 100 Mechanical Ventilator 12/24/16 20:53 82 15 100 Mechanical Ventilator 12/24/16 20:45 133/96 12/24/16 20:30 129/99 12/24/16 20:23 74 13 100 Mechanical Ventilator 12/24/16 20:15 137/103 12/24/16 20:00 143/104 12/24/16 19:53 85 15 100 Mechanical Ventilator 12/24/16 19:48 94 18 97 Mechanical Ventilator 12/24/16 19:45 148/107 12/24/16 19:30 155/110 12/24/16 19:25 152/115 12/24/16 19:20 144/107 12/24/16 19:18 91 18 100 Mechanical Ventilator 12/24/16 19:15 144/103 12/24/16 19:10 136/103 12/24/16 19:05 142/99 12/24/16 19:00 141/102 12/24/16 18:55 138/101 12/24/16 18:50 137/84 12/24/16 18:48 81 18 100 Mechanical Ventilator 12/24/16 18:43 79 12 100 Mechanical Ventilator 12/24/16 18:40 134/91 12/24/16 18:38 84 13 100 Mechanical Ventilator 12/24/16 18:33 84 12 100 Mechanical Ventilator 12/24/16 18:32 100 12/24/16 18:30 125/89 12/24/16 18:28 88 17 99 Mechanical Ventilator 12/24/16 18:10 137/95 12/24/16 18:08 92 12 99 Mechanical Ventilator 12/24/16 18:05 135/93 12/24/16 18:03 97 12 99 Mechanical Ventilator 12/24/16 18:02 97 12/24/16 18:02 150/103 12/24/16 17:58 116 18 98 Mechanical Ventilator 12/24/16 17:54 149/91 12/24/16 17:53 119 20 88 Mechanical Ventilator 12/24/16 17:50 37.0 110 12 149/91 92 Mechanical Ventilator Physical Exam General Appearance: WD/WN, no apparent distress, + pertinent finding (patient appears to be laying in bed with eyes closed and is in no distress) Skin: normal color Laboratory Results Results Past 24 Hours Test 12/24/16 17:50 12/24/16 18:03 12/24/16 18:07 12/24/16 18:12 Range/Units White Blood Count 22.85 4.8-10.8 K/uL Red Blood Count 4.25 4.2-5.4 M/uL Hemoglobin 13.5 12.0-16.0 g/dL Hematocrit 40.1 37-47 % Mean Corpuscular Volume 94.4 80-100 fL Mean Corpuscular Hemoglobin 31.8 25-34 pg Mean Corpuscular Hemoglobin Concent 33.7 32-36 g/dl Platelet Count 297 130-400 K/uL Mean Platelet Volume 10.7 7.4-10.4 fL Neutrophils (%) (Auto) 94.5 % Lymphocytes (%) (Auto) 1.1 % Monocytes (%) (Auto) 2.5 % Eosinophils (%) (Auto) 0.0 % Basophils (%) (Auto) 0.1 % Neutrophils # (Auto) 21.61 1.4-6.5 K/uL Lymphocytes # (Auto) 0.24 1.2-3.4 K/uL Monocytes # (Auto) 0.57 0.11-0.59 K/uL Eosinophils # (Auto) 0.00 0-0.5 K/uL Basophils # (Auto) 0.02 0-0.2 K/uL RDW Standard Deviation 44.7 36.4-46.3 fL RDW Coefficient of Variation 12.9 11.5-14.5 % Immature Granulocyte % (Auto) 1.8 % Immature Granulocyte # (Auto) 0.41 0.00-0.02 K/uL Prothrombin Time 9.6 9.0-12.0 SECONDS Prothromb Time International Ratio 0.9 0.9-1.1 Activated Partial Thromboplast Time 20.1 21.0-31.0 SECONDS Partial Thromboplastin Ratio 0.8 Sodium Level 133 136-145 mmol/L Potassium Level 3.8 3.5-5.1 mmol/L Chloride Level 98 98-107 mmol/L Carbon Dioxide Level 13 21-32 mmol/L Anion Gap 22.0 22.0 16-25 mmol/L Blood Urea Nitrogen 20 7-18 mg/dl Creatinine 1.71 0.60-1.20 mg/dl Estimated GFR () 45.4 Estimated GFR (Non- 39.2 BUN/Creatinine Ratio 11.8 10-20 Random Glucose 354 70-99 mg/dl Calcium Level 8.7 8.5-10.1 mg/dl Total Bilirubin 0.5 0.2-1 mg/dl Direct Bilirubin 0-0.2 mg/dl Aspartate Amino Transf (AST/SGOT) 126 15-37 U/L Alanine Aminotransferase (ALT/SGPT) 58 12-78 U/L Alkaline Phosphatase 188 45-117 U/L Troponin I 0.544 0-0.045 ng/ml Total Protein 7.1 6.4-8.2 gm/dl Albumin 3.6 3.4-5.0 gm/dl Beta-Hydroxybutyric Acid 3.25 0.2-2.81 mg/dL Chemistry Specimen Hemolysis Bedside Hemoglobin 13.9 13.6 12.0-16.0 g/dl Bedside Hematocrit 41 40 37-47 % Bedside Sodium 133 134 135-144 mEq/L Bedside Potassium 4.0 3.2 3.3-5.0 mEq/L Bedside Chloride 100 101-112 mEq/L Bedside Total CO2 16 24-31 mEq/l Bedside Blood Urea Nitrogen 20 7-18 mg/dl Bedside Creatinine 1.4 0.6-1.3 mg/dl Bedside Glucose (other) 355 70-99 mg/dl Bedside Ionized Calcium (Fercho) 1.09 1.12-1.32 mmol/l Bedside Lactic Acid Venous 10.65 0.90-1.70 mmol/L Bedside Blood Gas pH (LAB) 7.29 7.35-7.45 Bedside Blood Gas pCO2 (LAB) 38 35-46 mmHg Bedside Blood Gas pO2 (LAB) > 420 80-95 mmHg Bedside Blood Gas HCO3 (LAB) 19 19-24 meq/L Bedside Blood Gas Total CO2 20 24-31 mEq/l Bedside Blood Gas Base Excess (LAB) -8.0 -9-1.8 meq/L Bedside Blood Gas O2 Saturation 100.0 90-95 % Microbiology Results 12/24/16 MRSA DNA Surveillance Screen - Final, Complete Specimen Negative for MRSA by DNA Probe Assessment and Plan 31 year old female with malignant melanoma that has spread to her brain and has caused large intracerebral bleed. Currently has comfort measures in place with morphine drip and family at the bedside. History Resident Physician Supervision Note: I was present with Dr. Cedillo during the history and exam. I discussed the case with the resident and agree with the findings and plan as documented in the note. Any exceptions or clarifications are listed here. 31 y/o female w/ metastatic melanoma to multiple sites with acute subarachnoid hemorrhage and deterioration of mental status requiring ventilatory support. After discussion with family, decision was made to extubate and provide comfort measures. At present, the patient is resting in bed without sign of agitation. Examination is minimal, but shows no tachypnea, irritation, skin changes or swelling. For comfort, would continue IV morphine to control respiratory and agitation. Could add scopolamine patch for secretion management if needed. Can use ativan for agitation overtop of morphine but would prefer titration of morphine if possible considering multifocal impact.
[2016-12-25] MEDS ORDERED: LORAZEPAM 2 MG/ML 1 ML VIAL ONE (09:08)
--- NOTE | 2016-12-25 09:19 | Critical Care Progress Note ---
Critical Care Progress Note Date of Service Dec 25, 2016. Attending Dr. Rogers Subjective Neurological status is poor. Ventilator in place. Appropriate analgesic and sedation in place. Images of the brain and underlying pathology reviewed. Her status is terminal. I spoke with the family regarding end of life care. Decision made to extubate and provide comfort measures. Will proceed with this AM today. Current SOFA Score SOFA Score Response (Comments) Value PaO2/FiO2 (mmHg) < 300 2 SaO2 / FIO2 142 - 220 2 Platelets (x10) > 150 0 Bilirubin (mg/dL) < 1.2 0 Fabiano Coma Score < 6 4 Level of Hypotension No Hypotension 0 Creatinine (mg/dL) < 1.2 0 Total 8 Assessment & Plan (1) Malignant melanoma Terminal disease--massive intracerebral bleeding. Comfort measures in place today. expected soon. Family at bedside. Support provided. 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 Consults & Procedures Consultants: palliative/hospice care Procedures: None Data Medications: Current Inpatient Medications Medications (Trade) Dose Ordered Sig/Marge Route Start Time Stop Time Status Last Admin Dose Admin Lorazepam (Ativan Inj) 1 mg Q1H PRN IV 12/24/16 21:45 01/23/17 21:44 12/24/16 22:26 1 MG Acetaminophen 100 ml @ 400 mls/hr Q8H PRN IV 12/24/16 21:45 01/23/17 21:44 Fentanyl Citrate (Fentanyl Inj) 25 mcg Q1H PRN IV 12/24/16 22:15 01/07/17 22:14 12/24/16 22:26 25 MCG Propofol (Diprivan Iv Emulsion 100ml Vial) 1 dose UD PRN IV 12/24/16 22:30 12/27/16 22:29 Midazolam HCl 250 ml @ 0 mls/hr Q0M PRN IV 12/24/16 22:18 01/23/17 22:17 12/24/16 23:48 8 MLS/HR Morphine Sulfate/ Dextrose 250 ml @ 0 mls/hr Q0M PRN IV 12/25/16 08:30 01/08/17 08:29 Vital Signs: Date Time Temp Pulse Resp B/P (MAP) Pulse Ox O2 Delivery O2 Flow Rate FiO2 12/25/16 07:23 40 12/25/16 05:23 40 12/25/16 04:19 100 Mechanical Ventilator 50 12/25/16 04:19 50 12/25/16 01:48 40 12/25/16 00:00 50 12/25/16 00:00 100 Mechanical Ventilator 50 12/24/16 23:22 66 12 100 12/24/16 23:00 64 12 110/84 (93) 100 12/24/16 22:24 40 12/24/16 22:24 37.2 68 14 134/99 (111) 100 Mechanical Ventilator 12/24/16 22:22 66 12 100 12/24/16 22:20 37.1 64 12 134/99 Mechanical Ventilator 50 12/24/16 21:30 129/95 12/24/16 21:28 74 20 100 Mechanical Ventilator 12/24/16 21:15 132/94 12/24/16 21:01 138/107 12/24/16 20:58 74 14 100 Mechanical Ventilator 12/24/16 20:53 82 15 100 Mechanical Ventilator 12/24/16 20:45 133/96 12/24/16 20:30 129/99 12/24/16 20:23 74 13 100 Mechanical Ventilator 12/24/16 20:15 137/103 12/24/16 20:00 143/104 12/24/16 19:53 85 15 100 Mechanical Ventilator 12/24/16 19:48 94 18 97 Mechanical Ventilator 12/24/16 19:45 148/107 12/24/16 19:30 155/110 12/24/16 19:25 152/115 12/24/16 19:20 144/107 12/24/16 19:18 91 18 100 Mechanical Ventilator 12/24/16 19:15 144/103 12/24/16 19:10 136/103 12/24/16 19:05 142/99 12/24/16 19:00 141/102 12/24/16 18:55 138/101 12/24/16 18:50 137/84 12/24/16 18:48 81 18 100 Mechanical Ventilator 12/24/16 18:43 79 12 100 Mechanical Ventilator 12/24/16 18:40 134/91 12/24/16 18:38 84 13 100 Mechanical Ventilator 12/24/16 18:33 84 12 100 Mechanical Ventilator 12/24/16 18:32 100 12/24/16 18:30 125/89 12/24/16 18:28 88 17 99 Mechanical Ventilator 12/24/16 18:10 137/95 12/24/16 18:08 92 12 99 Mechanical Ventilator 12/24/16 18:05 135/93 12/24/16 18:03 97 12 99 Mechanical Ventilator 12/24/16 18:02 97 12/24/16 18:02 150/103 12/24/16 17:58 116 18 98 Mechanical Ventilator 12/24/16 17:54 149/91 12/24/16 17:53 119 20 88 Mechanical Ventilator 12/24/16 17:50 37.0 110 12 149/91 92 Mechanical Ventilator Laboratory Results: Last 24 Hours Test 12/24/16 17:50 12/24/16 18:03 12/24/16 18:07 12/24/16 18:12 White Blood Count 22.85 K/uL Red Blood Count 4.25 M/uL Hemoglobin 13.5 g/dL Hematocrit 40.1 % Mean Corpuscular Volume 94.4 fL Mean Corpuscular Hemoglobin 31.8 pg Mean Corpuscular Hemoglobin Concent 33.7 g/dl Platelet Count 297 K/uL Mean Platelet Volume 10.7 fL Neutrophils (%) (Auto) 94.5 % Lymphocytes (%) (Auto) 1.1 % Monocytes (%) (Auto) 2.5 % Eosinophils (%) (Auto) 0.0 % Basophils (%) (Auto) 0.1 % Neutrophils # (Auto) 21.61 K/uL Lymphocytes # (Auto) 0.24 K/uL Monocytes # (Auto) 0.57 K/uL Eosinophils # (Auto) 0.00 K/uL Basophils # (Auto) 0.02 K/uL RDW Standard Deviation 44.7 fL RDW Coefficient of Variation 12.9 % Immature Granulocyte % (Auto) 1.8 % Immature Granulocyte # (Auto) 0.41 K/uL Prothrombin Time 9.6 SECONDS Prothromb Time International Ratio 0.9 Activated Partial Thromboplast Time 20.1 SECONDS Partial Thromboplastin Ratio 0.8 Sodium Level 133 mmol/L Potassium Level 3.8 mmol/L Chloride Level 98 mmol/L Carbon Dioxide Level 13 mmol/L Anion Gap 22.0 mmol/L 22.0 mmol/L Blood Urea Nitrogen 20 mg/dl Creatinine 1.71 mg/dl Estimated GFR () 45.4 Estimated GFR (Non- 39.2 BUN/Creatinine Ratio 11.8 Random Glucose 354 mg/dl Calcium Level 8.7 mg/dl Total Bilirubin 0.5 mg/dl Direct Bilirubin mg/dl Aspartate Amino Transf (AST/SGOT) 126 U/L Alanine Aminotransferase (ALT/SGPT) 58 U/L Alkaline Phosphatase 188 U/L Troponin I 0.544 ng/ml Total Protein 7.1 gm/dl Albumin 3.6 gm/dl Beta-Hydroxybutyric Acid 3.25 mg/dL Chemistry Specimen Hemolysis Bedside Hemoglobin 13.9 g/dl 13.6 g/dl Bedside Hematocrit 41 % 40 % Bedside Sodium 133 mEq/L 134 mEq/L Bedside Potassium 4.0 mEq/L 3.2 mEq/L Bedside Chloride 100 mEq/L Bedside Total CO2 16 mEq/l Bedside Blood Urea Nitrogen 20 mg/dl Bedside Creatinine 1.4 mg/dl Bedside Glucose (other) 355 mg/dl Bedside Ionized Calcium (Fercho) 1.09 mmol/l Bedside Lactic Acid Venous 10.65 mmol/L Bedside Blood Gas pH (LAB) 7.29 Bedside Blood Gas pCO2 (LAB) 38 mmHg Bedside Blood Gas pO2 (LAB) > 420 mmHg Bedside Blood Gas HCO3 (LAB) 19 meq/L Bedside Blood Gas Total CO2 20 mEq/l Bedside Blood Gas Base Excess (LAB) -8.0 meq/L Bedside Blood Gas O2 Saturation 100.0 %
--- NOTE | 2016-12-25 10:07 | Clinical Documentation Query ---
CLINICAL DOCUMENTATION QUERY 31 year old female who presents to the Emergency Room with persistent unresponsiveness beginning [employer]. In your clinical opinion is this patient being managed for: x Coma & respiratory failure in setting of subarachnoid hemorrhage treated with mechanical ventilation and ICU hemodynamic monitoring. ( ) Not Agree ( ) Other explanation of clinical findings (Please Explain) ( ) Unable to determine (Please Define) ( ) Need to Discuss The medical record reflects the following clinical findings, treatment, and risk factors. Clinical Indicators: As above. Per EMS intubated in the field 2/2 apnea and hypoxia w/ a respiratory rate of 2/min. Was found unresponsive by roomate. Treatment: Mechanical ventilation, Head CT, ICU hemodynamic monitoring, Q2h neuro checks, Risk Factors: Metastatic cancer to brain. Please clarify and document your clinical opinion in the progress notes and discharge summary. Terms such as "probable", "suspected", "likely", "questionable", "possible", or "still to be ruled out" are acceptable. IF IN AGREEMENT, YOU MUST DOCUMENT ABOVE DIAGNOSTIC STATEMENT IN DAILY PROGRESS NOTES AND DISCHARGE SUMMARY. This document is not part of the patient's record. Thank You, Flash Renee, ELLEN [phone]
--- NOTE | 2016-12-25 13:41 | Palliative Care Progress Note ---
Palliative Care Progress Note Date of Service Dec 25, 2016. Subjective Consult received, discussed at morning ICU rounds. Per the family's request, palliative care consult will not be completed at this time. I am certainly available at any time to do a consult if the family decides. Thank you.
[2016-12-26] MEDS: MORPHINE SULF/NSS 250MG/250ML IV PRN ×2 (01:42→15:51)
[2016-12-26 04:00] VITALS: O2SAT 98
[2016-12-26 08:30] VITALS: O2SAT 98
--- NOTE | 2016-12-26 08:47 | Critical Care Progress Note ---
Critical Care Progress Note Date of Service Dec 26, 2016. Attending Dr. Rogers Subjective Intracerebral Hemorrhage Secondary to Metastatic Melanoma Objective She is comfortable. No respiratory distress No seizures observed Respiratory pattern is consistent with intracerebral process No other targets identified Spoke with family at bedside today. Current SOFA Score SOFA Score Response (Comments) Value PaO2/FiO2 (mmHg) < 300 2 SaO2 / FIO2 142 - 220 2 Platelets (x10) > 150 0 Bilirubin (mg/dL) < 1.2 0 Fabiano Coma Score < 6 4 Level of Hypotension No Hypotension 0 Creatinine (mg/dL) < 1.2 0 Total 8 Assessment & Plan (1) Malignant melanoma Terminal disease--massive intracerebral bleeding. Comfort measures in place today. expected soon. Family at bedside. Support provided. I spoke with family regarding Hospice Room transfer out of the ICU> This is being coordinated by nursing/palliative care team. Family is ok with this move. 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 Consults & Procedures Consultants: palliative/hospice care Procedures: None Data Medications: Current Inpatient Medications Medications (Trade) Dose Ordered Sig/Marge Route Start Time Stop Time Status Last Admin Dose Admin Lorazepam (Ativan Inj) 1 mg Q1H PRN IV 12/24/16 21:45 01/23/17 21:44 12/24/16 22:26 1 MG Acetaminophen 100 ml @ 400 mls/hr Q8H PRN IV 12/24/16 21:45 01/23/17 21:44 Fentanyl Citrate (Fentanyl Inj) 25 mcg Q1H PRN IV 12/24/16 22:15 01/07/17 22:14 12/24/16 22:26 25 MCG Midazolam HCl 250 ml @ 0 mls/hr Q0M PRN IV 12/24/16 22:18 01/23/17 22:17 12/24/16 23:48 8 MLS/HR Morphine Sulfate/ Dextrose 250 ml @ 0 mls/hr Q0M PRN IV 12/25/16 08:30 01/08/17 08:29 12/26/16 01:42 20 MLS/HR Vital Signs: Date Time Temp Pulse Resp B/P (MAP) Pulse Ox O2 Delivery O2 Flow Rate FiO2 12/26/16 04:00 98 Nasal Cannula 2.0 12/25/16 23:59 99 Nasal Cannula 2.0 12/25/16 21:40 78 12 102/63 (76) 100 Nasal Cannula 2.0 12/25/16 20:00 Nasal Cannula 2.0 12/25/16 16:00 100 Nasal Cannula 2.0 12/25/16 12:00 100 Nasal Cannula 3.0
[2016-12-26] MEDS: MIDAZOLAM 125MG/250ML D5W 250 ML IV PRN (08:59)
--- NOTE | 2016-12-26 10:57 | Family Medicine Progress Note ---
Progress Note Date of Service Dec 26, 2016. Subjective Pt evaluation today including: conversation w/ patient, conversation w/ family , conversation w/ hr consultant, review of inpatient medication list Patient was seen at the bedside with family. Patient has remained comfortable on morphine drip and versed drip. Has not had any difficulty breathing, agitations, agonal gasps or seizure like activity Additional Comments: unable to assess Medications Current Inpatient Medications Medications (Trade) Dose Ordered Sig/Marge Route Start Time Stop Time Status Last Admin Dose Admin Lorazepam (Ativan Inj) 1 mg Q1H PRN IV 12/24/16 21:45 01/23/17 21:44 12/24/16 22:26 1 MG Acetaminophen 100 ml @ 400 mls/hr Q8H PRN IV 12/24/16 21:45 01/23/17 21:44 Fentanyl Citrate (Fentanyl Inj) 25 mcg Q1H PRN IV 12/24/16 22:15 01/07/17 22:14 12/24/16 22:26 25 MCG Midazolam HCl 250 ml @ 0 mls/hr Q0M PRN IV 12/24/16 22:18 01/23/17 22:17 12/26/16 08:59 8 MLS/HR Morphine Sulfate/ Dextrose 250 ml @ 0 mls/hr Q0M PRN IV 12/25/16 08:30 01/08/17 08:29 12/26/16 01:42 20 MLS/HR Objective Vital Signs Date Time Temp Pulse Resp B/P (MAP) Pulse Ox O2 Delivery O2 Flow Rate FiO2 12/26/16 08:30 98 Nasal Cannula 2.0 12/26/16 04:00 98 Nasal Cannula 2.0 12/25/16 23:59 99 Nasal Cannula 2.0 12/25/16 21:40 78 12 102/63 (76) 100 Nasal Cannula 2.0 12/25/16 20:00 Nasal Cannula 2.0 12/25/16 16:00 100 Nasal Cannula 2.0 12/25/16 12:00 100 Nasal Cannula 3.0 Physical Exam General Appearance: WD/WN, no apparent distress Assessment and Plan 31 year old female with metastatic melanoma found to have haemorrhagic brain bleed and has been placed on comfort measures. Continue morphine and versed drips for comfort measures and to prevent any further seizure like activity Transfer to the floors so patient can be in a comfortable room Assessment/Plan Resident Physician Supervision Note: I was present with Dr. Cedillo during the history and exam. I discussed the case with the resident and agree with the findings and plan as documented in the note. Any exceptions or clarifications are listed here. 31 y/o female w/ metastatic melanoma to multiple sites with acute subarachnoid hemorrhage and deterioration of mental status requiring ventilatory support s/p extubation on comfort measures. Per family report, the patient is resting in bed without sign of agitation. Examination is minimal, but without no tachypnea , irritation, skin changes or swelling. For comfort, would continue IV morphine to control respiratory and agitation. Could add scopolamine patch for secretion management if needed. Can use ativan for agitation overtop of morphine but would prefer titration of morphine if possible considering multifocal impact.
[2016-12-26 14:09] VITALS: O2SAT 98
[2016-12-26 15:36] VITALS: BP 110/84; PULSE 78; TEMP 37.2; O2SAT 98
[2016-12-27] MEDS: MORPHINE SULF/NSS 250MG/250ML IV PRN ×2 (05:06→19:01)
[2016-12-27] MEDS: SCOPOLAMINE 1.5 MG TDSY TD SCH (10:21)
[2016-12-27] MEDS ORDERED: NURSING VERBAL MED ORDER ONE (15:15)
--- NOTE | 2016-12-27 15:34 | Family Medicine Progress Note ---
Progress Note Date of Service Dec 27, 2016. Subjective Pt evaluation today including: conversation w/ patient, conversation w/ family , chart review, lab review, conversation w/ supply chain consultant, review of inpatient medication list Pain: none PO Intake: NPO Patient appears to be resting comfortably Family at the bedside and without any concerns at the moment They say that the patient has not had any difficulty breathing. They have said that she has remained comfortable She had a scopolamine patch placed yesterday Additional Comments: unable to obtain Medications Current Inpatient Medications Medications (Trade) Dose Ordered Sig/Marge Route Start Time Stop Time Status Last Admin Dose Admin Lorazepam (Ativan Inj) 1 mg Q1H PRN IV 12/24/16 21:45 01/23/17 21:44 12/24/16 22:26 1 MG Acetaminophen 100 ml @ 400 mls/hr Q8H PRN IV 12/24/16 21:45 01/23/17 21:44 Fentanyl Citrate (Fentanyl Inj) 25 mcg Q1H PRN IV 12/24/16 22:15 01/07/17 22:14 12/24/16 22:26 25 MCG Midazolam HCl 250 ml @ 0 mls/hr Q0M PRN IV 12/24/16 22:18 01/23/17 22:17 12/26/16 08:59 8 MLS/HR Morphine Sulfate/ Dextrose 250 ml @ 0 mls/hr Q0M PRN IV 12/25/16 08:30 01/08/17 08:29 12/27/16 05:06 20 MLS/HR Scopolamine (Transderm-Scop Patch) 1.5 mg Q72H TD 12/27/16 06:00 01/26/17 05:59 12/27/16 10:21 1.5 MG Miscellaneous (Remove Transderm-Scop Patch) 1 ea Q72H N/A 12/30/16 05:59 01/29/17 05:58 Miscellaneous Information (Check Scopolamine Patch Placement) 1 ea QS N/A 12/27/16 16:00 01/26/17 15:59 Objective Vital Signs Date Time Temp Pulse Resp B/P (MAP) Pulse Ox O2 Delivery O2 Flow Rate FiO2 12/27/16 08:05 Nasal Cannula 2.0 12/27/16 00:36 Nasal Cannula 2.0 12/26/16 20:00 Nasal Cannula 2.0 12/26/16 15:36 37.2 78 12 98 2.0 Physical Exam General Appearance: WD/WN, no apparent distress, + pertinent finding (mild agonal gasps, regular respiratory rate) Skin: normal color Assessment and Plan 31 year old female with metastatic melanoma to the brain with subarachnoid haemmorhage. She has been placed on comfort measures 1) Continue morphine drip for comfort 2) Continue versed drip to prevent any seizure activity 3) Scopolamine patch started to help with secretions 4) Acetaminophen IV prn for elevated temp Continued [facility] stay due to: multiple IV medications needed Assessment/Plan Resident Physician Supervision Note: I was present with Dr. Cedillo during the history and exam. I discussed the case with the resident and agree with the findings and plan as documented in the note. Any exceptions or clarifications are listed here. 31 y/o female w/ metastatic melanoma to multiple sites with acute subarachnoid hemorrhage and deterioration of mental status requiring ventilatory support s/p extubation on comfort measures. Patient is resting in bed with family at bedside. No apparent sign of agitation. On examination, CTAB with mild rhonchi ( likely transmitted), S1/S2 nl RRR no MCG. Respirations with intermittent agonal type breathing but generally comfortable appearing. Continue IV morphine to control respiratory drive and agitation. Versed drip to control for seizures 2/2 intracranial hemorrhage. Scopolamine patch for secretion management. Can use ativan for agitation overtop of morphine but would prefer titration of morphine if possible considering multifocal impact.
[2016-12-27] MEDS: CHECK SCOPOLAMINE PATCH PLACEMENT SCH (16:00)
[2016-12-27] MEDS: MIDAZOLAM 125MG/250ML D5W 250 ML IV PRN (21:05)
[2016-12-28] MEDS: CHECK SCOPOLAMINE PATCH PLACEMENT SCH ×4 (00:07→23:18)
[2016-12-28 02:30] VITALS: TEMP 38.1
[2016-12-28] MEDS: ACETAMINOPHEN IV 100 ML IV PRN ×2 (02:41→08:27)
[2016-12-28 03:45] VITALS: TEMP 37
[2016-12-28] MEDS: MORPHINE SULF/NSS 250MG/250ML IV PRN ×2 (08:26→23:32)
[2016-12-28] MEDS ORDERED: NURSING VERBAL MED ORDER ONE (09:45)
[2016-12-28] MEDS ORDERED: ACETAMINOPHEN IV PRN (10:45)
--- NOTE | 2016-12-28 12:57 | Family Medicine Progress Note ---
Progress Note Date of Service Dec 28, 2016. Subjective Pt evaluation today including: conversation w/ patient, conversation w/ family , physical exam, lab review, conversation w/ executive talent acquisition consultant, review of inpatient medication list Pain: none PO Intake: NPO Voiding: mishra catheter in place Patient has remained comfortable overnight Mother anxious as she wants to know when patient will pass so she can make sure she is here Discussed thoroughly and told that this is unpredictable and encouraged to look after herself Patient otherwise spike a temp yesterday evening of 38.1 and has been given acetaminophen IV Additional Comments: unable to obtain Medications Current Inpatient Medications Medications (Trade) Dose Ordered Sig/Marge Route Start Time Stop Time Status Last Admin Dose Admin Lorazepam (Ativan Inj) 1 mg Q1H PRN IV 12/24/16 21:45 01/23/17 21:44 12/24/16 22:26 1 MG Fentanyl Citrate (Fentanyl Inj) 25 mcg Q1H PRN IV 12/24/16 22:15 01/07/17 22:14 12/24/16 22:26 25 MCG Midazolam HCl 250 ml @ 0 mls/hr Q0M PRN IV 12/24/16 22:18 01/23/17 22:17 12/27/16 21:05 8 MLS/HR Morphine Sulfate/ Dextrose 250 ml @ 0 mls/hr Q0M PRN IV 12/25/16 08:30 01/08/17 08:29 12/28/16 08:26 20 MLS/HR Scopolamine (Transderm-Scop Patch) 1.5 mg Q72H TD 12/27/16 06:00 01/26/17 05:59 12/27/16 10:21 1.5 MG Miscellaneous (Remove Transderm-Scop Patch) 1 ea Q72H N/A 12/30/16 05:59 01/29/17 05:58 Miscellaneous Information (Check Scopolamine Patch Placement) 1 ea QS N/A 12/27/16 16:00 01/26/17 15:59 12/28/16 08:27 1 EA Acetaminophen 50 ml @ 400 mls/hr Q4H PRN IV 12/28/16 10:45 01/27/17 10:44 Objective Vital Signs Date Time Temp Pulse Resp B/P (MAP) Pulse Ox O2 Delivery O2 Flow Rate FiO2 11/9/17 10:39 Nasal Cannula 2.0 12/28/16 03:45 37.0 12/28/16 02:30 38.1 12/28/16 00:12 Nasal Cannula 2.0 12/27/16 16:00 Nasal Cannula 2.0 Physical Exam General Appearance: WD/WN, no apparent distress Respiratory/Chest: lungs clear Cardiovascular: no murmur, + tachycardia Skin: normal color, warm/dry Assessment and Plan 31 year old female with metastatic melanoma to the brain with subarachnoid haemmorhage. She has been placed on comfort measures. Continues to remain comfortable 1) Continue morphine drip for comfort 2) Continue versed drip to prevent any seizure activity 3) Scopolamine patch started to help with secretions 4) Acetaminophen IV prn for elevated temp (received two doses today thus far) 5) Ativan prn for agitation Continued [facility] stay due to: multiple IV medications needed, other Assessment/Plan Resident Physician Supervision Note: I was present with Dr. Cedillo during the history and exam. I discussed the case with the resident and agree with the findings and plan as documented in the note. Any exceptions or clarifications are listed here. 31 y/o female w/ metastatic melanoma to multiple sites with acute subarachnoid hemorrhage and deterioration of mental status requiring ventilatory support s/p extubation on comfort measures. Patient is resting in bed with family at bedside. No apparent sign of agitation. Respiratory rate has decreased and is more agonal. CTAB with mild rhonchi (likely transmitted), S1/S2 nl RRR no MCG. Continue IV morphine to control respiratory drive and agitation. Versed drip to control for seizures 2/2 intracranial hemorrhage. Scopolamine patch for secretion management. Can use ativan for agitation overtop of morphine but would prefer titration of morphine if possible considering multifocal impact. Offered pastoral services and grief counseling for family who is grateful but defers.
[2016-12-28] MEDS ORDERED: ACETAMINOPHEN IV 650 MG in EMPTY BAG 0 ML IV PRN (23:45)
[2016-12-29] VITALS: TEMP 39
[2016-12-29] MEDS: LORAZEPAM INJ 1 MG in SYRINGE 0.5 ML IV PRN (01:56)
[2016-12-29 02:00] VITALS: TEMP 39.3
[2016-12-29] MEDS ORDERED: KETOROLAC TROMETHAMINE 15 MG/ML VIAL IV. PRN (02:15)
[2016-12-29] MEDS ORDERED: KETOROLAC TROMETHAMINE 30 MG/ML VIAL ONE (02:20)
[2016-12-29 03:30] VITALS: TEMP 39.5
[2016-12-29] MEDS: MORPHINE SULF/NSS 250MG/250ML IV PRN ×6 (03:42→22:27)
[2016-12-29] MEDS: CHECK SCOPOLAMINE PATCH PLACEMENT SCH ×2 (08:00→16:23)
[2016-12-29] MEDS ORDERED: NURSING DECISION MEDICATION ORDER SCH ×4 (09:15→16:30)
--- NOTE | 2016-12-29 10:57 | Palliative Care Consultation ---
Consultation Date of Consultation: Dec 29, 2016. Requesting Physician: Dr. Blake Attending Physician: Dr. Blake Reason for Consultation: Goals of care History of Present Illness This 31 year old female with metastatic melanoma, liver mets and brain mets, presented to the hospital five days ago with unresponsiveness and subarachnoid hemorrhage. She was placed on comfort measures only in ICU the next morning and was started on a morphine and versed gtt (for seizure prevention). Palliative is asked to see patient's family for support and extra layer of care. I met with the patient's mother Josselin, sister Armida, and her father in room 410 for well over an hour. Patient is obtunded on morphine gtt at 24mg/hr, versed gtt at 4mg/hr. Patient's family is coping as best they can, but understandably are struggling a bit. Mother expressed that patient wanted to donate at least part of her body/tissue to science and asked if I would contact their child welfare caseworker from [facility], Joy Cespedes. Family went on to tell me how wonderful and inspiring of a person Dunia has been over the last four years. They state that they have developed many strong support systems since the patient was diagnosed with melanoma. They plan to carry patient's memory and story on, may even participate in the "[employer]run the Sun" race. Patient's wish was to live her life to the fullest until she couldn't any more, which is exactly what she did. Up until the day this tragedy took place, she was spending time with friends and even went to [facility] earlier in the day. She had actually just returned from a trip to [place] four days before this happened. We talked about what would take place after the patient . The family knows she will be cremated and her ashes will be buried. They plan to reach out to their support systems to get them through this time. I offered to get them in contact with some bereavement services, they declined at this time. However, patient's mother stated that she has a degree in counseling and has actually helped others through bereavement and grief, so she will not hesitate to reach out if needed after the patient passes away. We discussed some things that the family can do with the patient now to help them cope. Family also has a very strong norm which carries them through, they have already had the it technical architect in to see the patient and anoint her. They have been talking to the patient, telling stories, laughing, and allowing friends/family to call in speak over the phone to the patient (even though patient is unable to speak back). It was the patient 's wish to not have anyone see her in the state she is in. I encouraged the family to think of any "unfinished business" or any worries the patient may have about passing away. They said they have covered all those bases and told the patient everything was okay and taken care of, so it was "okay for her to go." I did speak to Joy Cespedes on the phone, unfortunately without the patient' s consent, there likely is no avenue the family could take to donate patient's body/tissue. the family is aware and understanding. We went on to talk about all the ways the patient has already helped by participating in studies, clinical trials, and sharing her inspiring story with others. Patient even spoke at the [employer] recently. After patient's , the family plans to continue to share patient's story and use it to help others. They seemed to find some comfort in this. I made myself available to them and offered for them to call me any time, even after patient's , if there was anything further I could provide. Past Medical/Surgical History Medical History: Asthma Metastatic melanoma Seizure disorder Radical neck surgery Review of Systems unable to obtain Allergies Coded Allergies: Penicillins (Verified Allergy, Unknown, unknown, 12/24/16) Medications Current Inpatient Medications Medications (Trade) Dose Ordered Sig/Marge Route Start Time Stop Time Status Last Admin Dose Admin Lorazepam (Ativan Inj) 1 mg Q1H PRN IV 12/24/16 21:45 01/23/17 21:44 12/24/16 22:26 1 MG Fentanyl Citrate (Fentanyl Inj) 25 mcg Q1H PRN IV 12/24/16 22:15 01/07/17 22:14 12/24/16 22:26 25 MCG Midazolam HCl 250 ml @ 0 mls/hr Q0M PRN IV 12/24/16 22:18 01/23/17 22:17 12/27/16 21:05 8 MLS/HR Morphine Sulfate/ Dextrose 250 ml @ 0 mls/hr Q0M PRN IV 12/25/16 08:30 01/08/17 08:29 12/29/16 05:45 23 MLS/HR Scopolamine (Transderm-Scop Patch) 1.5 mg Q72H TD 12/27/16 06:00 01/26/17 05:59 12/27/16 10:21 1.5 MG Miscellaneous (Remove Transderm-Scop Patch) 1 ea Q72H N/A 12/30/16 05:59 01/29/17 05:58 Miscellaneous Information (Check Scopolamine Patch Placement) 1 ea QS N/A 12/27/16 16:00 01/26/17 15:59 12/29/16 08:00 1 EA Acetaminophen 650 mg/Empty Bag 65 ml @ 260 mls/hr Q6H PRN IV 12/28/16 23:45 01/27/17 23:44 12/29/16 00:02 260 MLS/HR Lorazepam 1 mg/ Syringe 1 ml @ 1 mls/min Q1H PRN IV 12/29/16 02:00 01/28/17 01:59 12/29/16 01:56 1 MLS/MIN Ketorolac Tromethamine (Toradol Inj) 15 mg Q6H PRN IV. 12/29/16 02:15 01/03/17 02:14 Physical Exam Date Time Temp Pulse Resp B/P (MAP) Pulse Ox O2 Delivery O2 Flow Rate FiO2 12/29/16 10:19 Nasal Cannula 2.0 12/29/16 03:30 39.5 12/29/16 02:00 39.3 12/29/16 00:00 Nasal Cannula 2.0 12/29/16 00:00 39.0 12/28/16 20:00 Nasal Cannula 2.0 12/28/16 15:45 Nasal Cannula 2.0 General Appearance: no apparent distress, + thin ENT: + pertinent finding (no secretions noted) Neck: no JVD Respiratory: + pertinent finding (agonal gasps, about 5-7 breaths per minute) Neurologic/Psychiatric: + pertinent finding (obtunded) Skin: + mottled (as reported by primary RN, I did not visualize this) physical exam not completed at this time at family's request Assessment & Plan Palliative Performance Scale: 10 % Problem list: Obtundation/unresponsive Subarachnoid hemorrhage Metastatic melanoma Brain and liver mets Seizure disorder Goals of care (Z51.5) Palliative care recs: -Patient is comfort measures only. -Continue morphine infusion for comfort. -Continue versed infusion for seizure prevention. -Had a great discussion with patient's family. They feel that they have enough support systems at this time and do plan to reach out to them to get through grief and bereavement. -Patient's mother was a counselor and has coached others through grief and bereavement, she stated she will not hesitate to reach out for help if needed. They decline any further assistance with that at this time. -I encouraged family to be sure they are sleeping, eating/drinking, and taking breaks. They are as much as they can. Patient's aunt is also present for support. -Patient's family is very appreciative and happy with the care that's been received by them and the patient while here. They deny further questions/ concerns. -Patient's mother asked me to pass it on to nursing that they have chosen [facility]. The stainless steel ring on patient's right ring finger should be left on patient INDEFINITELY. The ring is to stay on the patient even through cremation. Thank you for allowing me to participate in the care of this patient and her nice family. Please contact me with any further palliative needs.
--- NOTE | 2016-12-29 14:22 | Family Medicine Progress Note ---
Progress Note Date of Service Dec 29, 2016. Subjective Pt evaluation today including: conversation w/ patient, conversation w/ family , chart review, conversation w/ design and sales consultant, review of inpatient medication list Voiding: mishra catheter in place Patient had fever of 39.3. and 39.5 overnight She was ordered toradol prn and is also receiving tylenol IV. She had a wet cloth placed on her forehead. Her morphine was increased for comfort Additional Comments: unable to obtain Medications Current Inpatient Medications Medications (Trade) Dose Ordered Sig/Marge Route Start Time Stop Time Status Last Admin Dose Admin Lorazepam (Ativan Inj) 1 mg Q1H PRN IV 12/24/16 21:45 01/23/17 21:44 12/24/16 22:26 1 MG Fentanyl Citrate (Fentanyl Inj) 25 mcg Q1H PRN IV 12/24/16 22:15 01/07/17 22:14 12/24/16 22:26 25 MCG Midazolam HCl 250 ml @ 0 mls/hr Q0M PRN IV 12/24/16 22:18 01/23/17 22:17 12/27/16 21:05 8 MLS/HR Morphine Sulfate/ Dextrose 250 ml @ 0 mls/hr Q0M PRN IV 12/25/16 08:30 01/08/17 08:29 12/29/16 11:27 24 MLS/HR Scopolamine (Transderm-Scop Patch) 1.5 mg Q72H TD 12/27/16 06:00 01/26/17 05:59 12/27/16 10:21 1.5 MG Miscellaneous (Remove Transderm-Scop Patch) 1 ea Q72H N/A 12/30/16 05:59 01/29/17 05:58 Miscellaneous Information (Check Scopolamine Patch Placement) 1 ea QS N/A 12/27/16 16:00 01/26/17 15:59 12/29/16 08:00 1 EA Acetaminophen 650 mg/Empty Bag 65 ml @ 260 mls/hr Q6H PRN IV 12/28/16 23:45 01/27/17 23:44 12/29/16 00:02 260 MLS/HR Lorazepam 1 mg/ Syringe 1 ml @ 1 mls/min Q1H PRN IV 12/29/16 02:00 01/28/17 01:59 12/29/16 01:56 1 MLS/MIN Ketorolac Tromethamine (Toradol Inj) 15 mg Q6H PRN IV. 12/29/16 02:15 01/03/17 02:14 Objective Vital Signs Date Time Temp Pulse Resp B/P (MAP) Pulse Ox O2 Delivery O2 Flow Rate FiO2 12/29/16 10:19 Nasal Cannula 2.0 12/29/16 03:30 39.5 12/29/16 02:00 39.3 12/29/16 00:00 Nasal Cannula 2.0 12/29/16 00:00 39.0 12/28/16 20:00 Nasal Cannula 2.0 12/28/16 15:45 Nasal Cannula 2.0 Physical Exam General Appearance: WD/WN, no apparent distress, + pertinent finding (patient with wet cloth over her forehead) Respiratory/Chest: + pertinent finding (agonal gasps, RR 5 breaths per minute) Assessment and Plan 31 year old female with metastatic melanoma to the brain with subarachnoid haemmorhage. She has been placed on comfort measures. Continues to remain comfortable. Patient continued to have fevers overnight. Likely from dysregulation of thermal centre in the brain. Could also be due to infection as patient was recently intubated. Palliative Care were consulted to discuss bereavment services. 1) Continue morphine drip for comfort 2) Continue versed drip to prevent any seizure activity 3) Scopolamine patch started to help with secretions 4) Acetaminophen IV prn for elevated temp (received two doses today thus far), toradol added for fevers 5) Ativan prn for agitation 6) Consult palliative care
[2016-12-30] VITALS: O2SAT 98
[2016-12-30] MEDS: CHECK SCOPOLAMINE PATCH PLACEMENT SCH ×3 (00:29→16:00)
[2016-12-30] MEDS: SCOPOLAMINE 1.5 MG TDSY TD SCH (06:16)
[2016-12-30] MEDS: MORPHINE SULF/NSS 250MG/250ML IV PRN ×2 (09:05→19:39)
[2016-12-30 16:00] VITALS: O2SAT 98
--- NOTE | 2016-12-30 16:14 | Family Medicine Progress Note ---
Progress Note Date of Service Dec 30, 2016. Subjective Pt evaluation today including: conversation w/ family, physical exam, chart review Pt was seen and examined at bedside. She is non responsive. Morphine drip in place. Mom and dad in room and appropriately distress and concerned. Vital signs checks have been stopped as of AM of 11/28/16. Disease process is progressing as expected. Plan of care was discussed with family and no changes will be made. ROS: Unable to obtain due to patients baseline medical condition. Objective Physical Exam General Appearance: no apparent distress, + cachetic Respiratory/Chest: lungs clear Cardiovascular: + tachycardia Neurologic/Psychiatric: + pertinent finding (non responsive) Skin: warm/dry, no rash Laboratory Results General Appearance: no apparent distress, + thin ENT: + pertinent finding (no secretions noted) Neck: no JVD Respiratory: + pertinent finding (agonal gasps, about 5-7 breaths per minute) Neurologic/Psychiatric: + pertinent finding (obtunded) Skin: + mottled (as reported by primary RN, I did not visualize this) physical exam not completed at this time at family's request Assessment and Plan 31F with metastatic melanoma to the brain with subarachnoid hemorrhage. She has been placed on comfort measures. Continues to remain comfortable. We have stopped checking vital signs. We are pursuing comfort measures. Parents are in the room and appropriately distressed and concerned. No significant changes in medical management. Pt's condition is Terminal and Irreversible. - Continue morphine drip for comfort - Continue versed drip to prevent any seizure activity - Scopolamine patch started to help with secretions - Acetaminophen IV prn for elevated temp (received two doses today thus far), toradol added for fevers - Ativan prn for agitation Per Palliative Care Note: -Had a great discussion with patient's family. They feel that they have enough support systems at this time and do plan to reach out to them to get through grief and bereavement. -Patient's mother was a counselor and has coached others through grief and bereavement, she stated she will not hesitate to reach out for help if needed. They decline any further assistance with that at this time. -I encouraged family to be sure they are sleeping, eating/drinking, and taking breaks. They are as much as they can. Patient's aunt is also present for support. -Patient's family is very appreciative and happy with the care that's been received by them and the patient while here. They deny further questions/ concerns. -Patient's mother asked me to pass it on to nursing that they have chosen [facility]. The stainless steel ring on patient's right ring finger should be left on patient INDEFINITELY. The ring is to stay on the patient even through cremation. Code Status: DNR Resident Involvement: Resident Care Provided Care Provided: Adult [facility] Medicine Assessment/Plan Resident Physician Supervision Note: I was present with Dr. Puentes during the history and exam. I discussed the case with the resident and agree with the findings and plan as documented in the note. Any exceptions or clarifications are listed here. 31 y/o female w/ metastatic melanoma to multiple sites with acute subarachnoid hemorrhage and deterioration of mental status requiring ventilatory support s/p extubation on comfort measures. Patient is resting in bed with family at bedside without agitation. Respiratory rate has stabilized around 6 BPM, agonal. Deferred examination this morning. Continue IV morphine to control respiratory drive and agitation, increased to 27 at present. Versed drip to control for seizures 2/2 intracranial hemorrhage. Scopolamine patch for secretion management. Palliative care in consulted and their recommendations appreciated especially in the realm of supportive/family care.
[2016-12-30] MEDS: MIDAZOLAM 125MG/250ML D5W 250 ML IV PRN (17:46)
[2016-12-30] MEDS: LORAZEPAM INJ 1 MG in SYRINGE 0.5 ML IV PRN (20:55)
[2016-12-31] MEDS: CHECK SCOPOLAMINE PATCH PLACEMENT SCH (01:58)
[2016-12-31] MEDS: LORAZEPAM INJ 1 MG in SYRINGE 0.5 ML IV PRN (02:59)
--- NOTE | 2016-12-31 15:06 | Death Pronouncement Note ---
Pronouncement Note Date & Time of Dec 31, 2016. 6:35AM (Sagar Puentes M.D.) Pronouncement At time of pronouncement the patients pupils were fixed and dilated, there was no spontaneous respiratory effort, no palpable pulse, no audible heart tones, and no response to pain or voice. (Sagar Puentes M.D.) Resident Involvement: Resident Care Provided Care Provided: [facility] (Sagar Puentes M.D.) Assessment/Plan Resident Physician Supervision Note: I was present with Dr. Puentes during the history and exam. I discussed the case with the resident and agree with the findings and plan as documented in the note. Any exceptions or clarifications are listed here. 31 y/o female w/ metastatic melanoma to multiple sites with acute subarachnoid hemorrhage and deterioration of mental status requiring ventilatory support s/p extubation on comfort measures. Agree with documented examination per resident note regarding time of examination. (Stevenson Blake MD)
--- NOTE | 2016-12-31 15:16 | Death Summary ---
Summary of Admission Date Dec 24, 2016 at 21:34 (Sagar Puentes M.D.) Date & Time of Dec 31, 2016. 6:35AM (Sagar Puentes M.D.) Cause of Intracranial Hemorrhage (Sagar Puentes M.D.) Secondary Diagnoses Metastatic Melanoma to brain (Sagar Puentes M.D.) Hospital Course 31F with a known past medical history including malignant melanoma with metastases to liver, bones and brain, presently on oral chemotherapy, who was found unresponsive in her apartment by her roommate. She reportedly was ashen johnson and not breathing. When EMS saw the patient, she was given Narcan with no response, then was given etomidate and intubated prior to arrival in the ED by EMS. Patient was placed in the ICU. After extensive discussion with family it was decided to pursue comfort measures. Patient was placed on a Morphine Drip, Versed Drip for seizure activity, Scopolamine patch and Ativan PRN for agitation. Patient comfortably surrounded by her parents in the morning of 12/31/2016. (Sagar Puentes M.D.) Resident Involvement: Resident Care Provided Care Provided: Adult [facility] Medicine (Sagar Puentes M.D.) Assessment/Plan Resident Physician Supervision Note: I was present with Dr. Puentes during the history and exam. I discussed the case with the resident and agree with the findings and plan as documented in the note. Any exceptions or clarifications are listed here. 31 y/o female w/ metastatic melanoma to multiple sites with acute subarachnoid hemorrhage and deterioration of mental status requiring ventilatory support s/p extubation on comfort measures. Agree with documented examination per resident note regarding final examination of this patient. (Stevenson Blake MD)
== END 2016-12-31 10:00 | disposition expired | DRG 54 ==
LOC: EDUNIT# 17:48 → C.EDB 17:52 → C.MSICU 21:34 → ENRESERV 21:45 → C.4E 12-26 16:15
PROVIDERS: ADMIT Hospitalist; ATTEND Family Medicine
PROC: 5A1935Z Respiratory Ventilation, Less than 24 Consecutive Hours (ICD-10-PCS; principal; 2016-12-24)
PROC: 0T9B70Z Drainage of Bladder with Drainage Device, Via Natural or Artificial Opening (ICD-10-PCS; principal; 2016-12-24)
DX: C79.31 Secondary malignant neoplasm of brain (principal); I60.7 Nontraumatic subarachnoid hemorrhage from unspecified intracranial artery; C79.51 Secondary malignant neoplasm of bone; C78.7 Secondary malignant neoplasm of liver and intrahepatic bile duct; C77.9 Secondary and unspecified malignant neoplasm of lymph node, unspecified; C43.9 Malignant melanoma of skin, unspecified; Z51.5 Encounter for palliative care; R50.9 Fever, unspecified; G40.909 Epilepsy, unspecified, not intractable, without status epilepticus; J45.909 Unspecified asthma, uncomplicated; Z66 Do not resuscitate; Z79.3 Long term (current) use of hormonal contraceptives; Z79.52 Long term (current) use of systemic steroids; Z79.899 Other long term (current) drug therapy; Z88.0 Allergy status to penicillin